=== PATIENT | female | born 2000 | race Caucasian/White ===

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

== ENCOUNTER 2019-02-02 22:24 | Emergency (ER) | payer BC, SELFPAY ==
[2019-02-02 22:27] VITALS: BP 137/85; PULSE 96; RESP 16; TEMP 37.1; O2SAT 97
--- NOTE | 2019-02-02 22:29 | W.ED.GENAD ---
Discharge Plan Disposition Patient Disposition: HOME Condition: Good Discharge Details Chief Complaint: Orthopedic Clinical Impression: Right ankle sprain Primary Care Provider: Connor Mercado ED Provider: Jarred Dorsey Home Meds and New Rx's Prescriptions: No Action methylphenidate HCl [Concerta] 54 MG tablet extended release 24hr 54 mg PO DAILY RF: 0 fluoxetine [Prozac] 20 mg Capsule 20 mg PO DAILY RF: 0 Discharge Instructions Instructions: Ankle Sprain (ED) Additional Instructions: At this time your x-rays show no evidence of severe fracture. I suspect a notable sprain. Please use the crutches for the next 1 to 2 weeks and stay off your ankle. Ice it daily. Use a lace up splint as directed. Take Tylenol and Motrin as needed for pain. He can take a maximum dose of 1000 mg of Tylenol every 6 hours and 600 mg of ibuprofen every 6 hours for pain. If you have no improvement with this conservative therapy over the next 1 to 2 weeks you may require repeat imaging and follow-up with an senior procurement specialist. If you notice any worsening of your symptoms, or any new symptoms such as vomiting, diarrhea, fever, chills, shortness of breath, chest pain, numbness, weakness, or fainting , please return immediately to the emergency department for reevaluation. Please follow up with your primary care provider as soon as possible for reassessment and reevaluation. As always, it was a pleasure participating in your medical care today. Stand Alone Forms: Work Release Medical Decision Making This is a pleasant 18-year-old female who presents today for evaluation of right ankle pain. Earlier today she missed a step while walking, and inverted her right ankle, she has had mild improvement with ibuprofen, however over the last 6 hours she has had increasing swelling on the lateral malleoli and continued pain. Exam demonstrates swelling over the lateral malleoli as well as point tenderness. Auto ankle rules certainly recommend x-ray imaging at this time. Suspect notable sprain of the ankle, likely mild tear of the anterior talofibular ligament. Will get x-ray, give Tylenol, crutches and reassess. 10:59 PM X-ray results show no evidence of acute fracture. Suspect notable sprain. We will continue conservative therapy of ice, crutches, Tylenol, Motrin and legs up ankle splint. Discussed red flags which return. I have extensively reviewed the treatment plan and discharge instructions with the patient. I have addressed all patient concerns at this time. The patient was made aware of what symptoms to monitor for that would warrant a return to the emergency department. Discussed the plan with the patient, they demonstrate verbal understanding and agreement with our assessment and plan at this time. FINDINGS: Bones/joints: Ankle joint effusion. No evidence of fracture. Anatomic alignment. Soft tissues: Unremarkable. Soft tissue swelling over the lateral malleolus. IMPRESSION: Ankle joint effusion. Thank you for allowing us to participate in the care of your patient. Dictated and Authenticated by: Sukumar Nunez MD HPI General Date/Time Provider Initiated Documentation: 02/02/19 22:24. HPI Narrative: This is a 18-year-old female no significant past medical history who presents today for evaluation of right ankle pain. Her earlier today she was walking down 5 steps when she missed a step, and inverted her right ankle. She did not hear a pop at that time. She is been taking ibuprofen and this has been helping somewhat with the pain however over the last 6 hours she is noticed more increased swelling in the lateral aspect of the ankle and continued pain. She presents for evaluation. She denies any significant pain in the remainder of her leg. She denies any significant foot pain. No pain in her knee. She did not fall or strike her head or hips. No other complaints at this time. No other modifying factors. Related Data Home Medications Medication Instructions Recorded Confirmed methylphenidate HCl [Concerta] 54 mg PO DAILY 06/21/14 02/02/19 fluoxetine [Prozac] 20 mg PO DAILY 02/02/19 02/02/19 Allergies Allergy/AdvReac Type Severity Reaction Status Date / Time No Known Allergies Allergy Unverified 02/02/19 22:30 General ZEB: 3 Review of Systems All systems reviewed & are unremarkable except as noted in HPI and below PFSH Social History Smoking/Tobacco Use Status: Current every day Alcohol Intake: never Drug use: Never Substance use type: does not use Do you feel safe at home: Yes Do you feel safe in your relationship?: Yes Exam Narrative Exam Narrative: 1.Const: Well-nourished, Well-developed, appearing stated age 2.Eyes: PERRL, no conjunctival injection, and symmetrical lids. 3.ENT: Atraumatic external nose and ears. Moist MM. Neck: Symmetric, trachea midline, No thyromegaly. 4.CVS: +S1/S2, No murmurs or gallops. Peripheral pulses 2+ and equal in all extremities. Brisk capillary refill in all extremities. 5.RESP: Unlabored respiratory effort. Clear to auscultation bilaterally. No wheezes rales or rhonchi 6.GI: Soft, Nontender/Nondistended, No hepatosplenomegaly. No guarding or rebound. 7.MSK: Normocephalic, right ankle demonstrates evidence of mild swelling over the lateral malleoli, mild tenderness over the inferior and anterior component of the right lateral malleoli. Minimal tenderness just distal to this on the proximal tarsals. No significant joint laxity. Patient demonstrates good flexion extension of toes and foot. Mild pain with inversion and eversion. No pain at the medial malleoli. No other abnormalities, no gross deformities. 8.Skin: Warm, Dry. No rashes or lesions. 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 Sensation grossly intact, no focal neurologic deficits. 10.Psych: (AAO) x3. Appropriate mood and affect
[2019-02-02] MEDS: Acetaminophen 500 MG TAB 1000 MG PO (22:35)
--- NOTE | 2019-02-02 22:40 | DI.RAD_ITS ---
EXAM: XR ANKLE RT COMPLETE INDICATION: pain in lateral ankle after fall. COMPARISON: No exams were available for comparison TECHNIQUE: 2D digital imaging was performed. FINDINGS: No acute fracture or dislocation is present. There is soft tissue swelling about the ankle laterally. No radiopaque foreign bodies are seen in the soft tissues. IMPRESSION: 1. No acute fracture or dislocation. 2. Soft tissue swelling laterally.
--- NOTE | 2019-02-02 22:53 | DI.VRAD_ITS ---
PROCEDURE INFORMATION: Exam: XR Right Ankle Exam date and time: 02/02/2019 10:39 PM Clinical history: 18 years old, female; Other: Pain in lateral ankle after fall TECHNIQUE: Imaging protocol: XR Right ankle. Views: 3 or more views. COMPARISON: CR RIGHT FOOT COMPLETE 01/26/2016 2:08 PM FINDINGS: Bones/joints: Ankle joint effusion. No evidence of fracture. Anatomic alignment. Soft tissues: Unremarkable. Soft tissue swelling over the lateral malleolus. IMPRESSION: Ankle joint effusion. Dictated and Authenticated by: Sukumar Nunez MD. Ordering:REGI Stern MD
[2019-02-02 22:59] VITALS: BP 137/85; PULSE 96; RESP 16; O2SAT 97
== END 2019-02-02 23:05 | disposition home or self-care (01) ==
LOC: ER 22:52
PROVIDERS: Emergency Provider Student in an Organized Health Care Education/Training Program; PCP Physician Assistant Medical
DX: S93.401A Sprain of unspecified ligament of right ankle, initial encounter (principal)
CPT/HCPCS: 29515; 99283; 73610; 99282; E0114; L1902

== ENCOUNTER 2019-05-17 09:02 | Emergency (ER) | payer BC, SELFPAY ==
[2019-05-17 09:08] VITALS: BP 140/88; PULSE 105; RESP 18; TEMP 36.3; O2SAT 95
--- NOTE | 2019-05-17 09:15 | ED.GENADUL_ITS ---
Discharge Plan Disposition Patient Disposition: HOME Condition: Stable Discharge Details Chief Complaint: Nausea/Vomit/Diar Clinical Impression: Nausea and vomiting in adult Primary Care Provider: Connor Mercado ED Provider: Stefani Hawkins Home Meds and New Rx's Prescriptions: New ondansetron 4 mg tablet,disintegrating 4 mg PO Q8H PRN (Reason: nausea and vomiting) Qty: 14 RF: 0 promethazine 12.5 mg suppository 12.5 mg SC TID PRN (Reason: nausea and vomiting) Qty: 12 RF: 0 No Action methylphenidate HCl [Concerta] 54 MG tablet extended release 24hr 54 mg PO DAILY RF: 0 fluoxetine [Prozac] 20 mg Capsule 20 mg PO DAILY RF: 0 Discharge Instructions Instructions: Acute Nausea and Vomiting (ED) Additional Instructions: Follow up with primary care provider in 3-5 days. Return to ED sooner if any worsening or concerns. Please take Tylenol or Ibuprofen with food every 4-6 hours as needed for pain and swelling. Take medications as directed. Increase oral fluids. Stand Alone Forms: School Release Referrals: Connor Mercado PA [Primary Care Provider] - Discharge Data Discharge Date/Time-TO BE ENTERED AT DEPARTURE: 05/17/19 11:51 Medical Decision Making 1032: Patient reevaluation, has gotten 1 L of LR, CBC shows WBCs at 14 patient is not . Patient states that she feels somewhat better and is requesting water. Patient given a cup of water for p.o. challenge. Order for Pepcid placed. No further vomiting noted in department. Plan is to discharge as long as patient is able to tolerate p.o. Patient has not been able to give us a stool sample at this time. 1133: Second reevaluation, patient is tolerating p.o. fluids without difficulty this time. Patient states that she feels better and feels okay to be discharged home. At this time I feel it is safe for her to be discharged. Most likely viral in origin. Unable to have flu swab resulted at this time due to technical difficulties, flu swabs at this time are send out. Plan is to discharge patient with nausea medication and instructions on home care. This text was generated using [employer]elloation system, please disregard any oddities of phrase or misspellings. HPI General Mode of arrival: ambulatory . Date/Time Provider Initiated Documentation: 05/17/19 09:03 . Limitations to Documentation: no limitations . Information obtained by: patient . HPI Narrative: Patient presents with N/V/D x 3 days. Has PO Zofran at home which has not helped. 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. She reports 5-6 episodes of diarrheal stools a day. Mild cough. She denies any abdominal pain. No dysuria. Related Data Home Medications Medication Instructions Recorded Confirmed methylphenidate HCl [Concerta] 54 mg PO DAILY 06/21/14 02/02/19 fluoxetine [Prozac] 20 mg PO DAILY 02/02/19 02/02/19 ondansetron 4 mg PO Q8H PRN #14 tab 05/17/19 promethazine 12.5 mg SC TID PRN #12 each 05/17/19 Previous Rx's Medication Instructions Recorded ondansetron 4 mg PO Q8H PRN #14 tab 05/17/19 promethazine 12.5 mg SC TID PRN #12 each 05/17/19 Allergies Allergy/AdvReac Type Severity Reaction Status Date / Time No Known Allergies Allergy Unverified 02/02/19 22:30 General Stated Complaint: Nausea/Vomit/Diar ZEB: 3 Review of Systems Narrative: Constitutional: Negative for weight loss, alert and oriented, well groomed, normal body habitus, appears comfortable. HEENT: Denies trauma, headaches, blurry vision, nasal discharge, sore throat, trouble swallowing. Chest: Denies chest pain, palpitations, irregular rhythm, hypertension. Respiratory: Denies Shortness of breath, cough, hemoptysis. GI: Denies abdominal pain, constipation. Positive nausea vomiting diarrhea x3 days. : Denies dysuria, hematuria, flank pain, vaginal bleeding, rectal bleeding. Neuro: Denies dizziness, blurry vision, weakness, syncope, headache or facial numbness. Hematologic: Denies easy bruising, intolerance to heat or cold, hair loss. [facility] [place] Medical History ADHD (Acute) Duplex kidney (Acute) Social History Smoking/Tobacco Use Status: Current every day Tobacco Type: cigarettes Alcohol Intake: never Drug use: Never Substance use type: does not use Do you feel safe at home: Yes Do you feel safe in your relationship?: Yes Exam Const General: cooperative, healthy appearing, comfortable, no acute distress, well developed and well groomed Orientation: alert, awake and oriented x3 HENMT Ears: TM's normal bilaterally Mouth: oral mucosae normal Throat: posterior oropharynx normal Resp Effort & Inspection: normal respiratory effort and able to speak in complete sentences Auscultation: clear to auscultation bilaterally, no rhonchi and no wheezes Cardio Rate: regular rate and tachycardic Rhythm: regular rhythm Heart Sounds: S1 normal and S2 normal GI Inspection: normal to inspection Palpation: soft, no hepatosplenomegaly, no guarding and nontender Auscultation: normal bowel sounds Skin General skin exam: no rashes or lesions noted Lesions: no lesions Rashes: no rashes Course Vital Signs Vital signs: Vital Signs Temperature 36.3 C L 05/17/19 09:08 Pulse 105 H 05/17/19 09:08 Respiratory Rate 18 05/17/19 09:08 Blood Pressure 140/88 05/17/19 09:08 Pulse Oximetry 95 05/17/19 09:08 Temperature 36.3 C L 05/17/19 09:08 Temperature Source Tympanic 05/17/19 09:08 Pulse 105 H 05/17/19 09:08 Respiratory Rate 18 05/17/19 09:08 Blood Pressure 140/88 05/17/19 09:08 Blood Pressure Position Sitting 05/17/19 09:08 Pulse Oximetry 95 05/17/19 09:08 Oxygen Delivery Method Room Air 05/17/19 09:08 Oxygen Flow Rate 0 05/17/19 09:08
[2019-05-17] MEDS: Lactated Ringers 1,000 ML 1000 ML IV (09:49)
[2019-05-17] MEDS: Ondansetron 4 MG/2 ML VIAL IVP (09:55)
[2019-05-17 09:59] LABS: Abs Immature Grans 0.03 k/cumm (0.0-0.09); Absolute Basophil Count 0.01 k/cumm (0.0-0.2); Absolute Eosinophil Count 0.13 k/cumm (0.0-0.7); Absolute Lymphocyte Count 0.33 k/cumm (1.2-3.4); Absolute Monocyte Count 0.69 k/cumm (0.11-0.7); Basophils % 0.1; Eosinophils % 0.9; HCT 49.1 % (36.0-46.0); HGB 16.6 g/dL (12.0-15.5); Immature Grans % 0.2 %; Lymphocytes % 2.3; Mean Corp. HGB Concentration 33.8 g/dL (32.0-36.0); Mean Corpuscular Volume 88.8 fL (80-95); Mean Platelet Volume 10.2 fL (8.0-11.0); Monocytes % 4.8; Neutrophils % 91.7; Platelet Count 294 x1000/uL (130-400); RBC 5.53 m/cumm (4.00-5.20); RBC Distribution Width 13.2 % (11.7-14.6); White Blood Cell Count 14.46 k/cumm (4.4-10.8)
[2019-05-17 10:06] LABS: Absolute Neutrophil Count 13.26 k/cumm (1.2-6.7)
[2019-05-17 10:17] LABS: ALT 21 U/L (14-59); AST 18 U/L (15-37); Albumin 3.9 g/dL (3.4-5.0); Alkaline Phosphatase 55 U/L (46-116); Anion Gap 13.5 mmol/L (3-11); BUN 18 mg/dL (7-18); Bilirubin, Total 0.6 mg/dL (0.2-1.0); CO2 22.5 mmol/L (21.0-32.0); CREATININE 0.71 mg/dL (0.55-1.02); Calcium 8.8 mg/dL (8.5-10.1); Chloride 103 mmol/L (98-107); Glucose 106 mg/dL (74-106); Potassium 4.1 mmol/L (3.5-5.1); Sodium 139 mmol/L (136-145); Total Protein 7.7 g/dL (6.4-8.2)
[2019-05-17 10:24] LABS: Bilirubin Negative (Negative); Blood Negative (Negative); Clarity Clear (Clear); Glucose Negative (Negative); Ketones 15 mg/dL (Negative); Leukocyte Esterase Small (Negative); Nitrite Negative (Negative); Specific Gravity >= 1.030 (1.005-1.025); Urobilinogen 0.2 EU/dL (Up TO 0.2)
[2019-05-17 10:36] LABS: Bacteria Rare HPF (Negative); C & S Indicated? No/Sq. Contamination; Casts Negative LPF (Negative); Crystals Negative HPF (Negative); Epithelial Cells Many HPF (Negative); Mucus Negative (Negative); WBC 20-50 HPF (0-5)
[2019-05-17 11:45] VITALS: BP 117/77; PULSE 82; RESP 14; TEMP 36.8; O2SAT 99
== END 2019-05-17 11:51 | disposition home or self-care (01) ==
PROVIDERS: Emergency Provider Registered Nurse Emergency; PCP Physician Assistant Medical
DX: R11.2 Nausea with vomiting, unspecified (principal)
CPT/HCPCS: 80053; 81025; 87449; 96361; 96374; 99284; 81003; 81015; 85025; 87177; 87324; 99283; J2405

== ENCOUNTER 2019-07-18 17:05 | Outpatient (CLI) | payer BC, SELFPAY ==
[2019-07-19 15:19] LABS: COVID-19 RT-PCR Result Not Detected (NotDetected)
== END 2019-07-18 17:25 ==
PROVIDERS: PCP Physician Assistant; Visit Provider Physician Assistant
DX: J06.9 Acute upper respiratory infection, unspecified (principal)
CPT/HCPCS: U0003

== ENCOUNTER 2019-10-15 14:40 | Outpatient (REF) | payer BC, SELFPAY ==
[2019-10-16 15:27] LABS: Chlamydia Result Negative (Negative); GC Result Negative (Negative)
== END 2019-10-15 15:00 ==
LOC: LBN 14:40
PROVIDERS: PCP Physician Assistant; Visit Provider Nurse Practitioner Women's Health
DX: Z11.3 Encounter for screening for infections with a predominantly sexual mode of transmission (principal)
CPT/HCPCS: 87491; 87591

== ENCOUNTER 2019-10-26 07:58 | Emergency (ER) | payer BC, SELFPAY ==
[2019-10-26 08:08] VITALS: BP 132/86; PULSE 69; RESP 16; TEMP 36.4; O2SAT 96
--- NOTE | 2019-10-26 08:21 | W.ED.GENAD ---
Discharge Plan Disposition Patient Disposition: HOME Condition: Improving Discharge Details Chief Complaint: Abd Prob Clinical Impression: Epigastric abdominal pain, Poison kaylie Primary Care Provider: Connor Mercado ED Provider: Hemalatha Nguyen Home Meds and New Rx's Prescriptions: New famotidine [Pepcid] 20 mg tablet 20 mg PO DAILY Qty: 14 RF: 0 prednisone 20 mg tablet See Rx Instructions .ROUTE .COMPLEX Qty: 18 RF: 0 Continued fluoxetine [Prozac] 20 mg Capsule 20 mg PO DAILY RF: 0 Discharge Instructions Instructions: Poison Kaylie (ED), Epigastric Pain (ED) Additional Instructions: The antibiotics you are taking for your bacterial vaginosis may be causing gastrointestinal pain as a side effect. You should follow a bland diet over the next few days and be sure to eat before taking the antibiotic. Drink plenty of fluids and get plenty of rest. Take the Pepcid as directed for the next 2 weeks. Take the steroids until finished. Avoid scratching your areas of poison kaylie as this can cause a secondary bacterial infection and also cause spread of the rash. Follow-up with your primary care doctor in 1 week. Return to the emergency department with any worsening or new concerning symptoms such as fever, worsening pain, vomiting for reevaluation. Discharge Data Discharge Physician: Hemalatha Nguyen Medical Decision Making 0800 -- 18-year-old female currently on metronidazole for bacterial vaginosis for the past several days presents with intermittent sharp upper abdominal pain since this morning. Vitals within normal limits and she appears nontoxic. She has moderate upper abdominal and minimal suprapubic tenderness. Differential diagnosis includes antibiotic reaction, gastritis, GERD, PUD, cholelithiasis, cholecystitis, UTI, etc. Will obtain screening labs, urinalysis and urine and give a dose of Pepcid and GI cocktail and reassess. Will hold on imaging at this time pending labs and patient response to medication. 0940 -- labs reviewed and unremarkable. Patient reassessed -she was able to eat and drink and is laughing with her mom in the room and appears in no acute distress. She denies any abdominal pain and is requesting to go home. She also states she was recently treated for poison kaylie with a Medrol Dosepak but states the rash is worsening. She has a vesicular papular rash scattered diffusely, no signs of cellulitis. Discussed that she likely needed a higher dose of steroids for a longer period of time. A prescription for prednisone and Pepcid given. Advised to follow up with the primary care doctor for re-evaluation. Usual and customary return precautions given prior to discharge. Medical Records Medical records reviewed: Yes I reviewed the patient's medical records. HPI General Mode of arrival: ambulatory. Date/Time Provider Initiated Documentation: 10/26/19 08:08. Limitations to Documentation: no limitations. Information obtained by: patient. HPI Narrative: Pt is a 18yo F who is currently on antibiotics for bacterial vaginosis who presents with intermittent sharp upper abdominal pain since this morning. Patient denies any radiation of pain, aggravating or alleviating factors and states the pain is currently 4/10. She denies any fever, nausea, vomiting, diarrhea, urinary symptoms. Patient states she is currently on Flagyl for recently diagnosed bacterial vaginosis in which she had white vaginal discharge and vaginal bleeding. She denies any external lesions. She states she is sexually active with one partner. Related Data Home Medications Medication Instructions Recorded Confirmed fluoxetine [Prozac] 20 mg PO DAILY 02/02/19 10/26/19 famotidine [Pepcid] 20 mg PO DAILY #14 tab 10/26/19 prednisone See Rx Instructions .ROUTE 10/26/19 .COMPLEX #18 tab Previous Rx's Medication Instructions Recorded famotidine [Pepcid] 20 mg PO DAILY #14 tab 10/26/19 prednisone See Rx Instructions .ROUTE 10/26/19 .COMPLEX #18 tab Allergies Allergy/AdvReac Type Severity Reaction Status Date / Time No Known Allergies Allergy Unverified 02/02/19 22:30 General Stated Complaint: Abd Prob ZEB: 3 Review of Systems All systems reviewed & are unremarkable except as noted in HPI and below Constitutional Constitutional: Reports as per HPI, Denies chills and Denies fever(s) Eyes Eyes: Denies blurry vision ENT Ears, Nose, Mouth, and Throat: Denies dizziness, Denies sore throat and Denies throat swelling Cardiovascular Cardiovascular: Denies chest pain and Denies dyspnea Respiratory Respiratory: Denies cough and Denies dyspnea Gastrointestinal Gastrointestinal: Reports abdominal pain, Denies diarrhea and Denies vomiting Genitourinary Genitourinary: Denies hematuria and Denies dysuria Musculoskeletal Musculoskeletal: Denies back pain and Denies numbness Integumentary/Breasts Skin/Breast: Denies lesions and Denies rash Neurologic Neurologic: Denies dizziness, Denies localized weakness and Denies numbness Allergic/Immunologic Allergic/Immunologic: Denies throat swelling [facility] Medical History (Updated 10/26/19 @ 09:47 by Hemalatha Nguyen DO) ADHD (Acute) Duplex kidney (Acute) Surgical History (Updated 10/26/19 @ 08:50 by Hemalatha Nguyen DO) No significant past surgical history (Acute) Social History Smoking/Tobacco Use Status: Current every day Tobacco Type: e-cigarettes Alcohol Intake: never Drug use: Never Substance use type: marijuana Do you feel safe at home: Yes Do you feel safe in your relationship?: Yes Female Reproductive History Menstrual control method: patch Exam Const General: cooperative, healthy appearing and no acute distress HENMT Head: normal to inspection Face and sinus: normal facial exam Eyes General: appearance normal, both eyes and all related structures EOM: EOM intact bilaterally Neck Neck: normal visual inspection and No submandibular swelling Lymphatic: no lymphadenopathy noted Chest Chest: normal inspection of the chest and no tenderness Resp Effort & Inspection: normal respiratory effort and able to speak in complete sentences Auscultation: clear to auscultation bilaterally Cardio Rate: regular rate Rhythm: regular rhythm GI Inspection: normal to inspection Palpation: soft, not firm, not rigid and tender in the epigastrum, in the LUQ and in the RUQ Auscultation: normal bowel sounds Skin General skin exam: no rashes or lesions noted Neuro General: patient alert, patient awake and patient oriented x3 Cognition: normal cognition Speech: speech normal Motor: muscle tone normal throughout Sensory Exam: no sensory deficits noted Extrem General: normal to inspection, full ROM, capillary refill normal, no calf tenderness bilaterally and no edema Psych Appearance: grossly normal Mental Status: mental status grossly normal Speech and Movement: speech and movement normal Affect: normal affect Course Vital Signs Vital signs: Vital Signs Temperature 97.5 F L 10/26/19 08:08 Pulse 69 10/26/19 08:08 Respiratory Rate 16 10/26/19 08:08 Blood Pressure 132/86 10/26/19 08:08 Pulse Oximetry 96 10/26/19 08:08 Temperature 97.5 F L 10/26/19 08:08 Temperature Source Tympanic 10/26/19 08:08 Pulse 69 10/26/19 08:08 Respiratory Rate 16 10/26/19 08:08 Respiratory Effort Non-Labored 10/26/19 08:13 Blood Pressure 132/86 10/26/19 08:08 Blood Pressure Position Sitting 10/26/19 08:08 Pulse Oximetry 96 10/26/19 08:08 Oxygen Delivery Method Room Air 10/26/19 08:08 Oxygen Flow Rate 0 10/26/19 08:08 Pain Level 7 10/26/19 08:10
[2019-10-26] MEDS: Famotidine 20 MG TAB PO (08:55)
[2019-10-26 09:04] LABS: Bilirubin Negative (Negative); Blood Negative (Negative); Clarity Sl Cloudy (Clear); Glucose Negative (Negative); Ketones Negative (Negative); Leukocyte Esterase Negative (Negative); Nitrite Negative (Negative); Urobilinogen 0.2 EU/dL (Up TO 0.2); pH 5.5 (5-8)
[2019-10-26 09:06] LABS: Abs Immature Grans 0.04 k/cumm (0.0-0.09); Absolute Basophil Count 0.03 k/cumm (0.0-0.2); Absolute Eosinophil Count 0.51 k/cumm (0.0-0.7); Absolute Lymphocyte Count 2.35 k/cumm (1.2-3.4); Absolute Monocyte Count 0.83 k/cumm (0.11-0.7); Absolute Neutrophil Count 7.05 k/cumm (1.2-6.7); Basophils % 0.3; Eosinophils % 4.7; HCT 44.7 % (36.0-46.0); HGB 15.2 g/dL (12.0-15.5); Immature Grans % 0.4 %; Lymphocytes % 21.7; Mean Corpuscular Hemoglobin 30.5 pg (27.0-33.0); Mean Corpuscular Volume 89.8 fL (80-95); Mean Platelet Volume 10.1 fL (8.0-11.0); Monocytes % 7.7; Neutrophils % 65.2; Platelet Count 279 x1000/uL (130-400); RBC 4.98 m/cumm (4.00-5.20); RBC Distribution Width 13.5 % (11.7-14.6); White Blood Cell Count 10.81 k/cumm (4.4-10.8)
[2019-10-26 09:26] LABS: ALT 34 U/L (14-59); AST 22 U/L (15-37); Albumin 3.5 g/dL (3.4-5.0); Alkaline Phosphatase 46 U/L (46-116); Anion Gap 9.7 mmol/L (3-11); BUN 14 mg/dL (7-18); Bilirubin, Total 0.4 mg/dL (0.2-1.0); CO2 24.3 mmol/L (21.0-32.0); CREATININE 0.67 mg/dL (0.55-1.02); Calcium 8.7 mg/dL (8.5-10.1); Chloride 102 mmol/L (98-107); Glucose 91 mg/dL (74-106); Lipase 111 U/L (73-393); Potassium 3.7 mmol/L (3.5-5.1); Sodium 136 mmol/L (136-145); Total Protein 6.9 g/dL (6.4-8.2)
[2019-10-26 09:59] VITALS: BP 119/80; PULSE 74; RESP 18; TEMP 36.6; O2SAT 96
== END 2019-10-26 10:01 | disposition home or self-care (01) ==
PROVIDERS: Emergency Provider Physician Assistant; PCP Physician Assistant Medical
DX: R10.13 Epigastric pain (principal); T37.8X5A Adverse effect of other specified systemic anti-infectives and antiparasitics, initial encounter; L23.7 Allergic contact dermatitis due to plants, except food
CPT/HCPCS: 36415; 80053; 81025; 83690; 99283; 81003; 85025

== ENCOUNTER 2019-10-31 00:53 | Emergency (ER) | payer BC, SELFPAY ==
[2019-10-31 00:58] VITALS: BP 147/80; PULSE 81; RESP 16; TEMP 36.2; O2SAT 97
--- NOTE | 2019-10-31 01:00 | DI.CT_ITS ---
EXAM: CT HEAD WO CLINICAL HISTORY: severe headache, vomiting, wretching. TECHNIQUE: Imaging Protocol: Axial computed tomography images with coronal and sagittal reformatted images were created and reviewed COMPARISON: No exams were available for comparison FINDINGS: Ventricles and Extra axial spaces: Normal in size and morphology for the patient's age. There is a 1. 7 x 1.5 x 1.1 cm CSF density round circumscribed lesion in the region of the pineal gland. It exerts minimal mass effect. Hemorrhage: None. Cerebral parenchyma: Normal. Midline shift: None. Brainstem/Cerebellum: Normal. Calvarium: Normal. Visualized Paranasal sinuses/Mastoids: Clear. Soft Tissues: Unremarkable. IMPRESSION: 1. No acute intracranial process. 2. 1.7 x 1.5 x 1.1 cm CSF density well-circumscribed round lesion in the region of the pineal gland. 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 A nonem ergent follow-up pre and post-contrast MRI of the brain is recommended. RADIATION DOSE DELIVERED: Total DLP DATA REPOSITORY: All CT scans at this facility are submitted to the National Radiology Data Registry (NRDR) Dose Index Registry (DIR) with the [employer] (A[employer]). RADIATION OPTIMIZATION: All CT scans at this facility use at least one of these dose optimization te chniques: automated exposure control; mA and/or kV adjustment per patient size (includes targeted exa ms where dose is matched to clinical indication); or iterative reconstruction.
--- NOTE | 2019-10-31 01:05 | W.ED.GENAD ---
Discharge Plan Disposition Patient Disposition: HOME Condition: Good Discharge Details Chief Complaint: Headache Clinical Impression: Headache, Brain mass Primary Care Provider: Ventura Harding ED Provider: Jarred Dorsey Home Meds and New Rx's Prescriptions: Continued acetaminophen [Tylenol Extra Strength] 500 mg Tablet 1,000 mg PO PRN PRNRF: 0 famotidine [Pepcid] 20 mg Tablet 20 mg PO DAILY RF: 0 fluoxetine [Prozac] 10 mg Capsule 10 mg PO DAILY RF: 0 ibuprofen 600 mg Tablet 600 mg PO PRN PRNRF: 0 Discharge Instructions Instructions: General Headache (ED) Additional Instructions: At this time your headache is resolved. It is likely just a migraine headache. You do have the small cyst on your brain that you are well aware of, please continue to follow-up closely with your neurologist about this. If you notice any worsening of your symptoms, or any new symptoms such as vomiting, diarrhea, fever, chills, shortness of breath, chest pain, numbness, weakness, or fainting , please return immediately to the emergency department for reevaluation. Please follow up with your primary care provider as soon as possible for reassessment and reevaluation. As always, it was a pleasure participating in your medical care today. Stand Alone Forms: Work Release Referrals: Ventura Harding [Primary Care Provider] - Medical Decision Making 18-year-old female with a past medical history of headaches and PTSD, presents today for evaluation of headache. Patient states that for the last 2 days she has had what she describes as her classic headaches, but worse than normal. Started in a non-thunderclap form, gradually worsened, made worse with light and loud noises, improved with darkness. She did take Tylenol and Motrin but this did not resolve her symptoms. She is now nauseous, and has had a few intermittent episodes of vomiting. She states that it is similar nature to previous headaches. Per records it does not appear that she has had imaging before. The patient denies any headache red flags of worst headache of life, thunderclap headache, neck pain, fever, chills, concerning family history of polycystic kidney disease, Marfan syndrome, Jignesh-Danlos syndrome, abdominal aortic aneurysm, aortic dissection, or intracranial aneurysm. Patient has no other complaints at this time. No other modifying factors. Physical exam is unremarkable, no meningeal signs. Headache is described in the front of her head, no vision changes. Signs and symptoms inconsistent with acute angle-closure glaucoma, unlikely to be a dural venous sinus thrombosis based on clinical presentation. Symptoms and history and exam are inconsistent with intracranial aneurysm or bleed. Suspect likely migraine headache. With no history or images that we can find I do feel that a single imaging evaluation is indicated to rule out mass. Will treat with migraine cocktail, CT scan of the head, gently rehydrate monitor closely and reassess. 1 AM Patient's headache is completely resolved. Repeat neurologic exam shows no neurologic deficits or concerning findings. Symptoms inconsistent with meningitis, acute intercranial hemorrhage, subdural venous sinus thrombosis. CT scan is negative except for evidence of a CSF density in the region of the pineal gland. This was discussed with the patient and her mother, they state that they are well aware of this, and are regularly followed for. I did recommend repeat follow-up, and reassessment for this. I do not feel that this is the cause of her headaches, but should certainly continue to be evaluated and monitored. Patient and mother state that they are aware of this, and will follow-up closely with their outpatient providers. With the patient's complete resolution of her symptomatology, she is asking to go home. Patient will be discharged with mother. Discussed red flags which to return. I have extensively reviewed the treatment plan and discharge instructions with the patient and their family. I have addressed all patient concerns at this time. The patient and family was made aware of what symptoms to monitor for that would warrant a return to the emergency department. Discussed the plan with the patient and family, they demonstrate verbal understanding and agreement with our assessment and plan at this time. FINDINGS: 1,7x . 1.5 x 1.1 cm area of low attenuation/CSF density in the region of the pineal gland Minimal mass effect on the thalami Brain: No hemorrhage. Unremarkable white matter. Ventricles: Normal. No ventriculomegaly. Bones/joints: Unremarkable. No acute fracture. Sinuses: Visualized sinuses are unremarkable. No fluid levels. Mastoid air cells: Visualized mastoid air cells are well aerated. Soft tissues: Unremarkable. IMPRESSION: No acute intracranial hemorrhage noted Cystic/CSF attenuation focus in the expected location of the pineal gland which may represent a cyst versus arachnoid cyst versus epidermoid cyst. Follow-up nonurgent evaluation with contrast enhanced brain MRI recommended Thank you for allowing us to participate in the care of your patient. Dictated and Authenticated by: Lino Stovall MD 10/31/2019 1:56 AM Eastern Time ([place] & [place]) HPI General Date/Time Provider Initiated Documentation: 10/31/19 00:54. HPI Narrative: 18-year-old female with a past medical history of headaches and PTSD, presents today for evaluation of headache. Patient states that for the last 2 days she has had what she describes as her classic headaches, but worse than normal. Headache is achy, and located in the front of her head. Started in a non-thunderclap form, gradually worsened, made worse with light and loud noises, improved with darkness. She did take Tylenol and Motrin but this did not resolve her symptoms. She is now nauseous, and has had a few intermittent episodes of vomiting. She states that it is similar nature to previous headaches. Per records it does not appear that she has had imaging before. The patient denies any headache red flags of worst headache of life, thunderclap headache, neck pain, fever, chills, concerning family history of polycystic kidney disease, Marfan syndrome, Jignesh-Danlos syndrome, abdominal aortic aneurysm, aortic dissection, or intracranial aneurysm. Patient has no other complaints at this time. No other modifying factors. Also of note the patient is on a steroid burst for poison tavia. Related Data Home Medications Medication Instructions Recorded Confirmed acetaminophen [Tylenol Extra 1,000 mg PO PRN PRN 10/31/19 10/31/19 Strength] famotidine [Pepcid] 20 mg PO DAILY 10/31/19 10/31/19 fluoxetine [Prozac] 10 mg PO DAILY 10/31/19 10/31/19 ibuprofen 600 mg PO PRN PRN 10/31/19 10/31/19 Allergies Allergy/AdvReac Type Severity Reaction Status Date / Time No Known Allergies Allergy Unverified 10/31/19 02:09 General Stated Complaint: Headache ZEB: 3 Review of Systems All systems reviewed & are unremarkable except as noted in HPI and below PFSH Social History Smoking/Tobacco Use Status: Current every day Tobacco Type: e-cigarettes Alcohol Intake: never Drug use: Occasionally Substance use type: marijuana Do you feel safe at home: Yes Do you feel safe in your relationship?: Yes Exam Narrative Exam Narrative: 1.Const: Well-nourished, Well-developed, appearing stated age 2.Eyes: PERRL, no conjunctival injection, and symmetrical lids. 3.ENT: Atraumatic external nose and ears. Moist MM. Neck: Symmetric, trachea midline, No thyromegaly. Patient demonstrates good movement of cervical neck. There is no nuchal rigidity, no nuchal tenderness. Patient is able to flex the neck without any difficulty or significant pain. Negative Kernig's and Brudzinski sign. 4.CVS: +S1/S2, No murmurs or gallops. Peripheral pulses 2+ and equal in all extremities. Brisk capillary refill in all extremities. 5.RESP: Unlabored respiratory effort. Clear to auscultation bilaterally. No wheezes rales or rhonchi 6.GI: Soft, Nontender/Nondistended, No hepatosplenomegaly. No guarding or rebound. 7.MSK: Normocephalic/Atraumatic, Extremities w/o deformity or ttp No cyanosis or clubbing, Normal movement of all extremities 8.Skin: Warm, Dry. No rashes or lesions. 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 Sensation grossly intact, no focal neurologic deficits.All 6 cardinal planes of vision are fully intact. No evidence of rotatory or vertical nystagmus. The patient demonstrated a normal [id number], good dexterity. There was no evidence of dysdiadochokinesia. Patient was able to ambulate without difficulty. There was no wide-based gait. Romberg testing was normal. [id number] testing was normal. Sensation was intact bilaterally as well as muscle strength bilaterally for all extremities. Patient was able to verbalize butter cup with no slurring, or miss pronunciation. 10.Psych: (AAO) x3. Appropriate mood and affect Course Vital Signs Vital signs: Vital Signs Temperature 36.2 C L 10/31/19 00:58 Pulse 81 10/31/19 00:58 Respiratory Rate 16 10/31/19 00:58 Blood Pressure 147/80 H 10/31/19 00:58 Pulse Oximetry 97 10/31/19 00:58 Temperature 36.2 C L 10/31/19 00:58 Temperature Source Skin 10/31/19 00:58 Pulse 81 10/31/19 00:58 Respiratory Rate 16 10/31/19 00:58 Respiratory Effort Non-Labored 10/31/19 01:02 Blood Pressure 147/80 H 10/31/19 00:58 Blood Pressure Position Sitting 10/31/19 00:58 Pulse Oximetry 97 10/31/19 00:58 Oxygen Delivery Method Room Air 10/31/19 00:58 Oxygen Flow Rate 0 10/31/19 00:58
[2019-10-31] MEDS: Normal Saline 1,000 ML 1000 ML IV (01:17)
[2019-10-31] MEDS: diphenhydrAMINE 50 MG/ML VIAL IVP (01:17)
[2019-10-31] MEDS: Ketorolac 30 MG/ML VIAL IVP (01:18)
[2019-10-31] MEDS: Prochlorperazine 10 MG/2 ML VIAL IVP (01:18)
--- NOTE | 2019-10-31 01:57 | DI.VRAD_ITS ---
PROCEDURE INFORMATION: Exam: CT Head Without Contrast Exam date and time: 10/31/2019 1:04 AM Age: 18 years old Clinical indication: Pain; Headache not specified; Patient HX: Severe frontal headache, vomiting, wretching TECHNIQUE: Imaging protocol: Computed tomography of the head without contrast. Radiation optimization: All CT scans at this facility use at least one of these dose optimization techniques: automated exposure control; mA and/or kV adjustment per patient size (includes targeted exams where dose is matched to clinical indication); or iterative reconstruction. COMPARISON: No relevant prior studies available. FINDINGS: 1,7x . 1.5 x 1.1 cm area of low attenuation/CSF density in the region of the pineal gland Minimal mass effect on the thalami Brain: No hemorrhage. Unremarkable white matter. Ventricles: Normal. No ventriculomegaly. Bones/joints: Unremarkable. No acute fracture. Sinuses: Visualized sinuses are unremarkable. No fluid levels. Mastoid air cells: Visualized mastoid air cells are well aerated. Soft tissues: Unremarkable. IMPRESSION: No acute intracranial hemorrhage noted Cystic/CSF attenuation focus in the expected location of the pineal gland which may represent a cyst versus arachnoid cyst versus epidermoid cyst. Follow-up nonurgent evaluation with contrast enhanced brain MRI recommended Dictated and Authenticated by: Lino Stovall MD. Ordering:REGI Stern MD
[2019-10-31 02:29] VITALS: BP 131/89; PULSE 62; RESP 16; O2SAT 97
== END 2019-10-31 02:30 | disposition home or self-care (01) ==
PROVIDERS: Emergency Provider Student in an Organized Health Care Education/Training Program; PCP Physician Assistant
DX: G43.809 Other migraine, not intractable, without status migrainosus (principal); G93.0 Cerebral cysts; R11.2 Nausea with vomiting, unspecified
CPT/HCPCS: 81025; 96361; 96374; 96375; 99284; 70450; J0780; J1200; J1885

== ENCOUNTER 2020-02-01 17:38 | Outpatient (REF) | payer BC, SELFPAY ==
[2020-02-04 02:30] LABS: Patient Race White; SARS-CoV-2 RNA Undetected (Undetected); SARS-CoV-2 Specimen Source Nasal
== END 2020-02-01 17:58 ==
LOC: NCHCN 17:38
PROVIDERS: PCP Physician Assistant Medical; Visit Provider Nurse Practitioner Family
DX: R05 Cough (principal); J02.9 Acute pharyngitis, unspecified
CPT/HCPCS: U0003

== ENCOUNTER 2020-02-04 19:21 | Outpatient (REF) | payer BC, SELFPAY | END 2020-02-04 19:41 | LOC: NCHCN 19:21 | PROVIDERS: PCP Physician Assistant Medical; Visit Provider Nurse Practitioner Family | DX: J02.9 Acute pharyngitis, unspecified (principal); R05 Cough | CPT/HCPCS: 87070 ==

== ENCOUNTER 2020-02-05 10:04 | Outpatient (CLI) | payer BC, SELFPAY ==
--- NOTE | 2020-02-05 | DI.RAD_ITS ---
EXAM: XR CHEST 2V PA LATERAL CLINICAL HISTORY: COUGH, R05, COVID NEGATIVE 01/28 01/30, NO EXPOSURE SINCE TECHNIQUE: 2D digital imaging was performed. COMPARISON: CR CHEST 2 VIEWS PA,LAT from 06/10/2013 FINDINGS: The heart is not enlarged. The lungs are clear and well expanded. No pleural effusion seen. Mediastin al contours appear intact. IMPRESSION: Normal chest RADIATION DOSE DELIVERED: Total DLP
== END 2020-02-05 10:24 ==
PROVIDERS: PCP Physician Assistant Medical; Visit Provider Nurse Practitioner Family
DX: R05 Cough (principal)
CPT/HCPCS: 71046

== ENCOUNTER 2020-04-18 09:41 | Emergency (ER) | payer BC, SELFPAY ==
[2020-04-18] VITALS (11 sets, daily range): BP systolic 115–160; BP diastolic 82–112; PULSE 69–109; RESP 12–21; TEMP 36.5–36.9; O2SAT 93–97
--- NOTE | 2020-04-18 09:30 | RT.EKG_ITS ---
APPROVED REPORT Exam: Resting ECG Patient Location: E HR:74 bpm ECG Measurements Heart Rate 74 AXIS OR 196 P 47 QRSd 102 QRS 78 QT 396 T 58 QTc 442 Conclusion Sinus rhythm. Normal P axis
--- NOTE | 2020-04-18 09:45 | DI.RAD_ITS ---
EXAM: XR CHEST 2V PA LATERAL CLINICAL HISTORY: Chest tightness TECHNIQUE: 2D digital imaging was performed. COMPARISON: CR XR CHEST 2V PA LATERAL from 02/05/2020 FINDINGS: MEDIASTINUM: Normal. HEART: Normal. PULMONARY VASCULATURE: Normal. LUNGS: Clear. PLEURAL SPACE: No pleural effusion or pneumothorax. BONE:Within normal limits for the patient's age. OTHER FINDINGS:Normal. IMPRESSION: No acute pulmonary findings. DATA REPOSITORY: RADIATION DOSE DELIVERED:
--- NOTE | 2020-04-18 10:05 | ED.GENADUL_ITS ---
Discharge Plan Disposition Patient Disposition: HOME Condition: Stable Discharge Details Clinical Impression: Chest tightness Primary Care Provider: Connor Mercado ED Provider: Stefani Hawkins Home Meds and New Rx's Prescriptions: Continued fluoxetine [Prozac] 20 mg Capsule 20 mg PO DAILY RF: 0 acetaminophen [Tylenol Extra Strength] 500 mg Tablet 1,000 mg PO PRN PRNRF: 0 ibuprofen 600 mg Tablet 600 mg PO PRN PRNRF: 0 famotidine [Pepcid] 20 mg tablet 20 mg PO DAILY PRNRF: 0 Xulane 150-35 mcg/24 hr patch weekly 1 patch transdermal DIRECTED RF: 0 Discharge Instructions Instructions: Costochondritis (ED) Additional Instructions: Follow up with primary care provider in 3-5 days. Return to ED sooner if any worsening or concerns. Increase oral fluids. Please take Tylenol or Ibuprofen with food every 4-6 hours as needed for pain and swelling. Please return for any worsening or concerns. As always thank you for allowing us to care for you today. Referrals: Connor Mercado PA [Primary Care Provider] - Medical Decision Making 19-year-old female presents to the ED with chief complaint of chest tightness and left arm pain which began this morning. She describes the pain as constant, increases with deep breathing and movement. States that she woke up and began coughing and was coughing up phlegm. No real nausea or vomiting complaint but she does report that the coughing episode. She reports having a a low-grade fever of 99 this morning. Denies any trauma or injuries to the chest. She did present to express care this morning and was sent here for further evaluation. She has a past medical history of ADHD, duplex kidney, and postural orthostatic tachycardia syndrome. She is a smoker she does smoke marijuana. EKG and patient presentation was delayed after signing into the department due to refusal to come back unless her mother was present. Patient after multiple conversations did agree to be seen, she is alert and oriented x3 does appear mildly anxious. At this time work-up ordered including CBC, CMP, serial troponins, D-dimer, chest x-ray and urine test. 1011: EKG was reviewed by [Dr. Karoline GARCIAS] ER attending, please see his official report, normal sinus rhythm no ST elevation. At this time heart score is a 1 which is very low risk, patient does have 1 risk factor for possible PE which is hormone use. D-dimer is also been added onto labs. 1128: Patient reevaluation, she states that she feels much better. She is in the room without any significant trouble breathing or complaints of pain. She states that she does still feel small amount of chest tightness. Vital signs have remained hemodynamically stable. Heart rate has been 66-75, I did discuss the lab results with her and her mother via Zoom. They verbalized understanding. Discussed strict return instructions including to return for any increased pain, increased shortness of breath or any concerns. Instructed to follow-up with PCP in the next 3 to 5 days. CBC shows elevated white blood cell count at 17.92, D-dimer 197 which is within normal limits, CMP is within normal limits. Urine shows trace blood moderate leukocytes however this is a contaminated specimen will not be sent for culture. Special chest x-ray report is pending at this time. However I was able to personally view the images and do not see any obvious infiltrate or cardiopulmonary abnormality. We will give 50 mg of Toradol to see if it improves patient's symptoms. She did receive 0.5 mg of lorazepam p.o. and 324 mg of aspirin chewables which did improve her symptoms. Differential diagnosis includes but not limited to chest wall pain, costochondritis, bronchitis, viral illness, coronary artery disease, anxiety, PE This text was generated using [employer] system, please disregard any oddities of phrase or misspellings. HPI General Mode of arrival: ambulatory . Date/Time Provider Initiated Documentation: 04/18/20 09:42 . Limitations to Documentation: no limitations . Information obtained by: patient . HPI Narrative: 19-year-old female presents to the ED with chief complaint of chest tightness and left arm pain which began this morning. She describes the pain as constant, increases with deep breathing and movement. States that she woke up and began coughing and was coughing up phlegm. No real nausea or vomiting complaint but she does report that the coughing episode. She reports having a a low-grade fever of 99 this morning. Denies any trauma or injuries to the chest. She did present to express care this morning and was sent here for further evaluation. She has a past medical history of ADHD, duplex kidney, and postural orthostatic tachycardia syndrome. She is a smoker she does smoke marijuana. Related Data Home Medications Medication Instructions Recorded Confirmed fluoxetine [Prozac] 20 mg PO DAILY 02/02/19 04/18/20 acetaminophen [Tylenol Extra 1,000 mg PO PRN PRN 10/31/19 04/18/20 Strength] ibuprofen 600 mg PO PRN PRN 10/31/19 04/18/20 Xulane 1 patch TRANSDERMAL DIRECTED 04/18/20 04/18/20 famotidine [Pepcid] 20 mg PO DAILY PRN 04/18/20 04/18/20 Allergies Allergy/AdvReac Type Severity Reaction Status Date / Time Iodinated Contrast Media AdvReac Mild doesn't Unverified 04/18/20 11:02 feel well General Stated Complaint: Chest Pain ZEB: 2 Review of Systems Narrative: Constitutional: Negative for weight loss, alert and oriented, well groomed, normal body habitus, appears anxious. HEENT: Denies trauma, headaches, blurry vision, nasal discharge, sore throat, trouble swallowing. Chest: Denies irregular rhythm, hypertension. Positive chest pain, feels his heart is racing, left arm pain. Respiratory: Denies Shortness of breath, hemoptysis. Woke up coughing this morning. GI: Denies abdominal pain, vomiting, diarrhea, constipation. : Denies dysuria, hematuria, flank pain, rectal bleeding. Neuro: Denies dizziness, blurry vision, weakness, syncope, headache or facial numbness. Hematologic: Denies easy bruising, intolerance to heat or cold, hair loss. [facility] Medical History ADHD Duplex kidney Surgical History No significant past surgical history Social History Smoking/Tobacco Use Status: Current every day Tobacco Type: e-cigarettes Smoking risk assessment performed?: Yes Alcohol Intake: never Drug use: Socially Substance use type: marijuana Do you feel safe at home: Yes Do you feel safe in your relationship?: Yes Female Reproductive History Menstrual control method: patch Exam Narrative Exam Narrative: Constitutional: Alert and oriented x3. Appears stated age. Normal body habitus. Head: Normocephalic, no trauma. Eyes: Pupils PERRLA, Red reflex noted, EOM's intact. Eyelids symmetrical without lesions, discharge, or swelling. Chest: RRR, Normal S1, S2, distal pulses intact. Chest pain is reproducible with palpation. Resp: Lungs clear to auscultation bilaterally, no wheezes, rales, or rhonchi. Abdomen: Soft, nondistended nontender to palpation all 4 quadrants. Musculoskeletal: Normal gait, 5/5 strength to all four extremities. Skin: No suspicious rashes or lesions. Capillary refill less than 2 sec. no edema noted in the lower extremities. Neurologic: Cranial nerves II-XII intact. Alert and oriented x 3. DTR's intact. Hematologic/Lymphatic: No ecchymosis, no lymphadenopathy. Course Vital Signs Vital signs: Vital Signs Temperature 36.5 C 04/18/20 09:55 Pulse 109 H 04/18/20 09:55 Respiratory Rate 16 04/18/20 09:55 Blood Pressure 160/112 H 04/18/20 09:55 Pulse Oximetry 93 04/18/20 09:55 Temperature 36.5 C 04/18/20 09:55 Temperature Source Skin 04/18/20 09:55 Pulse 109 H 04/18/20 09:55 Respiratory Rate 16 04/18/20 10:01 Respiratory Effort 04/18/20 10:01 Respiratory Depth Normal 04/18/20 10:01 Respiratory Pattern Normal 04/18/20 10:01 Blood Pressure 160/112 H 04/18/20 09:55 Blood Pressure Position Sitting 04/18/20 09:55 Pulse Oximetry 93 04/18/20 09:55 Oxygen Delivery Method Room Air 04/18/20 09:55 Oxygen Flow Rate 0 04/18/20 09:55 Pain Level 8 04/18/20 09:55 Comment 04/18/20 09:55
[2020-04-18] MEDS: Normal Saline Flush 10 ML SYR IVP (10:15)
[2020-04-18] MEDS: Normal Saline 1,000 ML 125 ML IV (10:20)
[2020-04-18] MEDS: LORazepam 0.5 MG TAB PO (10:22)
[2020-04-18 10:23] LABS: Bilirubin Negative (Negative); Blood Trace-intact (Negative); Clarity Sl Cloudy (Clear); Glucose Negative (Negative); Ketones Negative (Negative); Leukocyte Esterase Moderate (Negative); Nitrite Negative (Negative); Specific Gravity 1.025 (1.005-1.025); Urobilinogen 0.2 EU/dL (Up TO 0.2)
[2020-04-18] MEDS: Aspirin 81 MG CHEW 324 MG CH (10:23)
[2020-04-18 10:26] LABS: Abs Immature Grans 0.06 10^3/uL (0.0-0.06); Basophils % 0.3; Eosinophils % 1.8; HCT 44.8 % (36.0-46.0); Immature Grans % 0.3; Lymphocytes % 20.4; MCH 29.5 pg (27.0-33.0); MCHC 33.5 % (32.0-36.0); Monocytes % 4.7; Neutrophils % 72.5; Nucleated RBC 0 %; Platelet Count 381 10^3/uL (130-400); RBC 5.09 10^6/uL (3.93-5.22); RDW 12.4 % (11.7-14.6); RDW-SD 40.1 fL; WBC 17.92 10^3/uL (4.4-10.8)
[2020-04-18 10:27] LABS: Absolute Basophil Count 0.05 10^3/uL (0.0-0.2); Absolute Eosinophil Count 0.32 10^3/uL (0.0-0.7); Absolute Lymphocyte Count 3.66 10^3/uL (1.2-3.4); Absolute Monocyte Count 0.84 10^3/uL (0.1-0.8); Absolute Neutrophil Count 12.99 10^3/uL (1.2-6.7)
[2020-04-18 10:33] LABS: Epithelial Cells Many HPF (Negative)
[2020-04-18 10:34] LABS: Bacteria Many HPF (Negative); C & S Indicated? No/Sq. Contamination
[2020-04-18 10:42] LABS: ALT 20 U/L (14-59); AST 13 U/L (15-37); Alkaline Phosphatase 78 U/L (46-116); Anion Gap 13.4 mmol/L (3-11); BUN 7 mg/dL (7-18); Bilirubin, Total 0.3 mg/dL (0.2-1.0); CO2 22.6 mmol/L (21.0-32.0); CREATININE 0.68 mg/dL (0.55-1.02); Calcium 9.2 mg/dL (8.5-10.1); Chloride 103 mmol/L (98-107); Glucose 102 mg/dL (74-106); Magnesium 1.9 mg/dL (1.8-2.4); Potassium 3.7 mmol/L (3.5-5.1); Sodium 139 mmol/L (136-145)
[2020-04-18 10:53] LABS: Troponin I < 0.05 ng/mL (<0.06)
--- NOTE | 2020-04-18 11:01 | CMPROGNOTE_ITS ---
- If Service Date Differs Date of service: 04/18/20 Time of Service: 11:01 Care Management Progress Note Bernice presents in the ED for chest pain. Her mom, Mariely, is reportedly extremely upset that she is unable to accompany her daughter into the ED, due to current Covid related visitor policies at the hospital. CM is asked to coordinate a face to face between Bernice and her mom to help alleviate anxiety. CM telephones mom who expresses her unhappiness with [facility]'s visitor policy. CM validates mom's frustration and concern for her daughter's welfare and offers to set up a face to face with Bernice and is informed that they both have cell phones and can communicate with one another through their phones. BERE also spends a few minutes with Bernice to offer support. She appears anxious and says she fears she is having a heart attack. 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 Bernice is in the process of receiving a work-up. She knows she can ask for CM to return at any time if needed.
[2020-04-18 11:08] LABS: D-Dimer 197 ng/mlFEU (<500)
[2020-04-18] MEDS: Ketorolac 15 MG/ML VIAL IVP (11:30)
== END 2020-04-18 11:47 | disposition home or self-care (01) ==
PROVIDERS: Emergency Provider Registered Nurse Emergency; PCP Physician Assistant Medical
DX: R07.89 Other chest pain (principal); M94.0 Chondrocostal junction syndrome [Tietze]
CPT/HCPCS: 80053; 81025; 93005; 96361; 96374; 99285; 71046; 81003; 81015; 83735; 84484; 85025; 85379; 93010; 99284; J1885

== ENCOUNTER 2020-05-26 14:55 | Outpatient (REF) | payer BC, SELFPAY ==
[2020-05-26 15:47] LABS: Abs Immature Grans 0.02 10^3/uL (0.0-0.06); Absolute Basophil Count 0.03 10^3/uL (0.0-0.2); Absolute Eosinophil Count 0.27 10^3/uL (0.0-0.7); Basophils % 0.3; Eosinophils % 2.3; HCT 42.7 % (36.0-46.0); HGB 14.3 g/dL (11.2-15.7); Immature Grans % 0.2; Lymphocytes % 25.2; MCH 29.9 pg (27.0-33.0); MCHC 33.5 % (32.0-36.0); MCV 89.3 fL (80-95); MPV 10.8 fL (8.0-11.0); Monocytes % 4.5; Neutrophils % 67.5; Nucleated RBC 0 %; Platelet Count 331 10^3/uL (130-400); RBC 4.78 10^6/uL (3.93-5.22); RDW 12.7 % (11.7-14.6); RDW-SD 41.3 fL; WBC 11.65 10^3/uL (4.4-10.8)
[2020-05-26 15:51] LABS: Absolute Lymphocyte Count 2.94 10^3/uL (1.2-3.4); Absolute Monocyte Count 0.52 10^3/uL (0.1-0.8); Absolute Neutrophil Count 7.86 10^3/uL (1.2-6.7)
[2020-05-26 16:22] LABS: HCG Qual (Serum) Negative
== END 2020-05-26 14:56 | disposition home or self-care (01) ==
LOC: NCHCN 14:55
PROVIDERS: PCP Physician Assistant Medical; Visit Provider Physician Assistant Medical
DX: D72.829 Elevated white blood cell count, unspecified (principal); N91.2 Amenorrhea, unspecified
CPT/HCPCS: 84703; 85025

== ENCOUNTER 2020-06-20 16:18 | Outpatient (REF) | payer BC, SELFPAY | END 2020-06-20 16:19 | disposition home or self-care (01) | LOC: NCHCN 16:18 | PROVIDERS: PCP Physician Assistant Medical; Visit Provider Physician Assistant Medical | DX: R10.9 Unspecified abdominal pain (principal) | CPT/HCPCS: 87086 ==

== ENCOUNTER 2020-07-10 01:35 | Outpatient (CLI) | payer BC, SELFPAY ==
--- NOTE | 2020-07-10 | DI.US_ITS ---
EXAM: US RENAL CLINICAL HISTORY: RT FLANK PAIN,R10.9,HEMATURIA,R31.9 TECHNIQUE: Ultrasound of both kidneys performed using standard protocol. COMPARISON: US Cardiac from 11/15/2017 FINDINGS: RIGHT KIDNEY: Measures 11.3 cm in length. No cysts evident. Normal cortical thickness and corticomedullary differen tiation .No solid masses No intrarenal calculi nor hydronephrosis. LEFT KIDNEY: Measures 14.3 cm in length. 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 Cortical mantle is normal thickness. No cortic omedullary differentiation. No cysts nor solid lesions seen in either kidney. No intrarenal calculi nor hydonephrosis. URINARY BLADDER: Prevoid volume is 23 cc Postvoid volume was not determined. No evidence of bladder mass nor diverticuli. Ureterovesical jets: Left ureteral vesicle jet was not identified. IMPRESSION: 1. Size discrepancy of the kidneys in that the left kidney is somewhat longer than typical and this appears to be related to probable double collecting system. There is no obvious hydronephrosis. 2. No other significant findings in the kidneys. Urinary bladder was apparently not adequately prepped and therefore not adequately studied. DATA REPOSITORY:
== END 2020-07-10 01:55 ==
PROVIDERS: PCP Physician Assistant Medical; Visit Provider Physician Assistant Medical
DX: N28.89 Other specified disorders of kidney and ureter (principal); R31.9 Hematuria, unspecified
CPT/HCPCS: 76770

== ENCOUNTER 2020-07-15 12:19 | Outpatient (REF) | payer BC, SELFPAY ==
[2020-07-15 16:15] LABS: Bilirubin Negative (Negative); Blood Negative (Negative); Clarity Clear (Clear); Glucose Negative (Negative); Ketones Negative (Negative); Leukocyte Esterase Negative (Negative); Nitrite Negative (Negative); Specific Gravity 1.025 (1.005-1.025); Urobilinogen 0.2 EU/dL (Up TO 0.2); pH 5.5 (5-8)
== END 2020-07-15 12:20 | disposition home or self-care (01) ==
LOC: NCHCN 12:19
PROVIDERS: PCP Physician Assistant Medical; Visit Provider Physician Assistant Medical
DX: R31.9 Hematuria, unspecified (principal)
CPT/HCPCS: 81003

== ENCOUNTER 2020-08-18 11:12 | Outpatient (REF) | payer BC, SELFPAY ==
[2020-08-20 01:47] LABS: COVID-19 RT-PCR UVMMC Result Negative (Negative)
== END 2020-08-18 11:13 | disposition home or self-care (01) ==
LOC: NCHCN 11:12
PROVIDERS: PCP Physician Assistant Medical; Visit Provider Physician Assistant Medical
DX: Z20.822 Contact with and (suspected) exposure to COVID-19 (principal); G43.909 Migraine, unspecified, not intractable, without status migrainosus
CPT/HCPCS: U0003

== ENCOUNTER 2021-01-29 14:32 | Outpatient (REF) | payer BC, SELFPAY | END 2021-01-29 14:33 | disposition home or self-care (01) | LOC: LBN 14:32 | PROVIDERS: PCP Physician Assistant Medical; Visit Provider Physician Assistant Medical | DX: L73.2 Hidradenitis suppurativa (principal) | CPT/HCPCS: 87077; 87070; 87186; 87205 ==

== ENCOUNTER 2021-03-24 16:35 | Emergency (ER) | payer OTHER, SELFPAY ==
[2021-03-24 16:40] VITALS: BP 153/92; PULSE 116; TEMP 37; O2SAT 97
--- NOTE | 2021-03-24 17:00 | DI.RAD_ITS ---
Exam(s) XR FOOT RT COMPLETE EXAM: XR FOOT RT COMPLETE CLINICAL HISTORY: trauma to medial foot. TECHNIQUE: 2D digital imaging was performed. COMPARISON: No exams were available for comparison FINDINGS: There is no evidence of acute fracture or diastasis of the Lisfranc joint. Bipartite medial hallucal sesamoid incidentally noted. No pes planus. No osseous lesions. No radiopaque foreign body. IMPRESSION: No acute osseous findings. DATA REPOSITORY: RADIATION DOSE DELIVERED:
--- NOTE | 2021-03-24 17:42 | DI.VRAD_ITS ---
PROCEDURE INFORMATION: Exam: XR Right Foot Exam date and time: 03/24/2021 5:12 PM Age: 20 years old Clinical indication: Other: Trauma to medial foot TECHNIQUE: Imaging protocol: XR Right foot. Views: 3 or more views. COMPARISON: 1. CR RIGHT FOOT COMPLETE 01/26/2016 2:08 PM 2. CR RIGHT FOOT COMPLETE 07/29/2015 12:16 PM 3. CR XR ANKLE RT COMPLETE 02/02/2019 10:37 PM FINDINGS: Bones/joints: Normal. Soft tissues: Normal. IMPRESSION: No acute findings. Dictated and Authenticated by: Janusz Mcdermott MD. Ordering:CHRIS Jacob MD
--- NOTE | 2021-03-24 17:43 | ED.GENADUL_ITS ---
Discharge Plan Disposition Patient Disposition: HOME Condition: Stable Discharge Details Clinical Impression: Contusion of foot, right Primary Care Provider: Connor Mercado ED Provider: Cecil Singh Home Meds and New Rx's Prescriptions: Continued acetaminophen [Tylenol Extra Strength] 500 mg Tablet 1,000 mg PO PRN PRNRF: 0 ibuprofen 600 mg Tablet 600 mg PO PRN PRNRF: 0 Discharge Instructions Instructions: Foot Contusion (ED), R.I.C.E. Treatment (ED) Additional Instructions: If not improving in the next 1-2 weeks please follow up for reassessment and repeat Xrays as needed. Stand Alone Forms: Work Release Discharge Data Discharge Date/Time-TO BE ENTERED AT DEPARTURE: 03/24/21 18:20 Medical Decision Making Patient presenting to the emergency department for chief complaint of right foot pain. Approximately 1 hour ago she slipped and fell striking her right foot against the ground/ice. Patient denies any other injury or trauma. Physical exam shows significant tenderness to right medial foot. No deformity noted, no lacerations or abrasions, ankle has no tenderness and full range of motion. Plan to perform radiological imaging of the foot for rule out of acute fracture Of notation initial vital signs show tachycardia and hypertension. I feel this is secondary to pain and trauma and do not feel these vital signs are worrisome at this time but will continue to monitor for change in condition. My Review of radiological imaging shows no acute fracture but pending radiologist interpretation patient was discharged with instructions on contusion and patient is agreeable to this plan of care and states understanding that she will need to return if radiologist reports shows any acute findings. After discussion of diagnosis and plan of care patient has no further needs, questions, or concerns and states clear understanding to return to the emergency department for any worsening symptoms. Imaging Data Radiologic Study: Attestation: I personally reviewed and interpreted this imaging study as follows: Imaging: X-Ray My impression: No acute soft tissue swelling, normal joint spaces, no acute fracture. HPI General Mode of arrival: ambulatory . Date/Time Provider Initiated Documentation: 03/24/21 17:07 . Limitations to Documentation: no limitations . Information obtained by: patient . History of Present Illness 20 year old F presents to the emergency department with the chief complaint of Right foot pain after fall, described as moderate, with intensity rated at 6. Quality is described as sharp, and is localized to the right and lower extremity. Patient reports no radiation. Patient started experiencing this hour(s) (1) and it has been constant. No relieving factors improve symptom(s), Movement worsens symptoms . Patient notes no other symptoms.. Patient did receive the following treatments prior to arrival, none Related Data Home Medications Medication Instructions Recorded Confirmed acetaminophen [Tylenol Extra 1,000 mg PO PRN PRN 10/31/19 03/24/21 Strength] ibuprofen 600 mg PO PRN PRN 10/31/19 03/24/21 Allergies Allergy/AdvReac Type Severity Reaction Status Date / Time Iodinated Contrast Media AdvReac Mild doesn't Unverified 03/24/21 16:44 feel well General Stated Complaint: Orthopedic ZEB: 4 Review of Systems Constitutional Constitutional: Denies headache(s) ENT Ears, Nose, Mouth, and Throat: Denies dizziness, Denies headache(s) and Denies neck pain Cardiovascular Cardiovascular: Denies chest pain, Denies syncope and Denies dyspnea Respiratory Respiratory: Denies dyspnea Gastrointestinal Gastrointestinal: Denies abdominal pain Musculoskeletal Musculoskeletal: Reports as per HPI, Denies neck pain, Denies numbness and Denies tingling Neurologic Neurologic: Denies dizziness, Denies syncope, Denies headache(s), Denies numbness and Denies tingling PFSH All Active Problems (Updated 03/24/21 @ 17:44 by Cecil Singh NP) Contusion of foot, right (Acute) Medical History ADHD Duplex kidney Surgical History No significant past surgical history Social History Smoking/Tobacco Use Status: Current every day Tobacco Type: e-cigarettes Smoking risk assessment performed?: Yes Alcohol Intake: never Drug use: Socially Substance use type: marijuana Do you feel safe at home: Yes Do you feel safe in your relationship?: Yes Female Reproductive History Menstrual control method: patch Exam Const General: not in acute distress and not diaphoretic Orientation: alert, awake and oriented x3 HENMT Head: normal to inspection, normocephalic and atraumatic Resp Effort & Inspection: normal respiratory effort and able to speak in complete sentences Cardio Rate: regular rate Rhythm: regular rhythm Neuro General: patient alert, patient awake, patient oriented x3, moves all extremities and normal light touch, pain and propioception Extrem General: normal exam except as noted Right lower extremity: foot Details: normal capillary refill, tenderness Location: of the medial foot and of the mid foot, toes with normal ROM and no edema; no abrasion and no laceration Course Vital Signs Vital signs: Vital Signs Temperature 37.0 C 03/24/21 16:40 Pulse 116 H 03/24/21 16:40 Blood Pressure 153/92 H 03/24/21 16:40 Pulse Oximetry 97 03/24/21 16:40 Temperature 37.0 C 03/24/21 16:40 Temperature Source Temporal Artery Scan 03/24/21 16:40 Pulse 116 H 03/24/21 16:40 Respiratory Effort Non-Labored 03/24/21 16:42 Blood Pressure 153/92 H 03/24/21 16:40 Blood Pressure Position Sitting 03/24/21 16:40 Pulse Oximetry 97 03/24/21 16:40 Oxygen Delivery Method Room Air 03/24/21 16:40 Oxygen Flow Rate 0 03/24/21 16:40 Pain Level 6 03/24/21 16:40
== END 2021-03-24 18:20 | disposition home or self-care (01) ==
PROVIDERS: Emergency Provider Nurse Practitioner Family; PCP Physician Assistant Medical
DX: S90.31XA Contusion of right foot, initial encounter (principal); W00.2XXA Other fall from one level to another due to ice and snow, initial encounter
CPT/HCPCS: 99283; 73630

== ENCOUNTER 2021-11-02 04:12 | Outpatient (CLI) | payer BC, SELFPAY ==
[2021-11-02 08:19] LABS: Abs Immature Grans 0.03 10^3/uL (0.0-0.06); Absolute Basophil Count 0.04 10^3/uL (0.0-0.2); Absolute Eosinophil Count 0.25 10^3/uL (0.0-0.7); Absolute Lymphocyte Count 2.36 10^3/uL (1.2-3.4); Absolute Monocyte Count 0.61 10^3/uL (0.1-0.8); Basophils % 0.5; Eosinophils % 3.1; HCT 46.1 % (36.0-46.0); HGB 15.5 g/dL (11.2-15.7); Immature Grans % 0.4; Lymphocytes % 28.8; MCH 30.2 pg (27.0-33.0); MCHC 33.6 % (32.0-36.0); MCV 90 fL (80-95); MPV 9.8 fL (8.0-11.0); Monocytes % 7.4; Neutrophils % 59.8; Platelet Count 285 10^3/uL (130-400); RBC 5.13 10^6/uL (3.93-5.22); RDW 12.6 % (11.7-14.6); WBC 8.19 10^3/uL (4.4-10.8)
[2021-11-02 09:02] LABS: ALT 20 U/L (14-59); AST 13 U/L (15-37); Albumin 3.9 g/dL (3.4-5.0); Alkaline Phosphatase 74 U/L (46-116); Anion Gap 9.9 mmol/L (3-11); BUN 10 mg/dL (7-18); Bilirubin, Total 0.3 mg/dL (0.2-1.0); CO2 24.1 mmol/L (21.0-32.0); CREATININE 0.7 mg/dL (0.55-1.02); Chloride 107 mmol/L (98-107); Glucose 100 mg/dL (74-106); Potassium 3.9 mmol/L (3.5-5.1); Sodium 141 mmol/L (136-145); Total Protein 7.2 g/dL (6.4-8.2)
[2021-11-04 13:09] LABS: IgA 75 mg/dL (85-499); Interpretation (See Note); Tissue Transglutaminase IgA <1.2 U/mL (<4.0)
[2021-11-07 17:47] LABS: Gliadin (Deamidated) Ab, IgG <10.0 U
== END 2021-11-02 04:13 | disposition home or self-care (01) ==
LOC: LBO 04:12
PROVIDERS: PCP Physician Assistant Medical; Visit Provider Physician Assistant Medical
DX: R11.2 Nausea with vomiting, unspecified (principal); D80.2 Selective deficiency of immunoglobulin A [IgA]
CPT/HCPCS: 36415; 80053; 82784; 83516; 85025

== ENCOUNTER 2021-11-09 12:14 | Outpatient (REF) | payer BC, SELFPAY ==
--- NOTE | 2021-11-09 11:45 | PAPFT_PTH ---
PATIENT: Bernice Archer LOC: [facility] U#:[id number] AGE/SX: 20/F ROOM: RE11/09/[address]: Connor Mercado : 2000 BED: DIS: 11/09/2021 SPEC #: [id number] RECD: 11/09/21 17:01 STATUS: PADMA VILLA #: [id number] LONI: 11/09/21 11:[address]: Connor Mercado DEPT: [facility] Cytology RECD BY: Tiffany Low Tissues: 1 - CX/ENDOCX FOR PAP SMEARS Procedures: PAP THIN PREP/UVM Screening Comments: [id number] (CHLAMYDIA/GC)
[2021-11-10 14:45] LABS: Chlamydia Result Negative (Negative); GC Result Negative (Negative)
== END 2021-11-09 12:15 | disposition home or self-care (01) ==
LOC: NCHCN 12:14
PROVIDERS: PCP Physician Assistant Medical; Visit Provider Physician Assistant Medical
DX: Z12.4 Encounter for screening for malignant neoplasm of cervix (principal); Z11.3 Encounter for screening for infections with a predominantly sexual mode of transmission
CPT/HCPCS: 87491; 87591; 88142

== ENCOUNTER 2022-01-01 10:27 | Emergency (ER) | payer BC, SELFPAY ==
[2022-01-01 10:35] VITALS: BP 160/97; PULSE 98; RESP 18; TEMP 36.8; O2SAT 97
--- NOTE | 2022-01-01 11:24 | W.ED.GENAD ---
Discharge Plan Disposition Patient Disposition: HOME Condition: Improving Discharge Details Clinical Impression: Pilonidal abscess Primary Care Provider: Connor Mercado ED Provider: Sea Lomeli Home Meds and New Rx's Prescriptions: New clindamycin HCl 300 mg capsule 300 mg PO QID 7 Days Qty: 28 0RF No Action escitalopram oxalate [Lexapro] 20 mg tablet 20 mg PO DAILY cyclobenzaprine 10 mg tablet 10 mg PO TID acetaminophen [Tylenol Extra Strength] 500 mg Tablet 1,000 mg PO PRN PRN ibuprofen 600 mg Tablet 600 mg PO PRN PRN Discharge Instructions Instructions: Pilonidal Cyst (ED), Abscess (ED) Additional Instructions: Please follow-up with surgical team as needed. Please return to the emergency department for any worsening symptoms such as pain swelling fevers chills or other abnormal symptoms. Take medications as prescribed Medical Decision Making 21-year-old female presents with painful swelling to superior aspect of carmen cleft over the past 1 to 2 weeks, evidence of 2 cm pilonidal abscess. No systemic signs of infection such as fever chills sweats or other abnormal symptoms. Will provide anxiolysis, analgesia local anesthetic and performed bedside I&D. Patient given lorazepam and Toradol preprocedure, L ET applied to lesion before 1% lidocaine, 11 blade used to open abscess cavity, copious amount of purulent material has been expressed. Patient be started on clindamycin. Will be given surgical referral for close follow-up. Home care instructions and return precautions given HPI General Date/Time Provider Initiated Documentation: 01/01/22 10:42. HPI Narrative: 21-year-old female history of recurrent abscesses presents with painful swelling to superior aspect of her buttock over the last 1 to 2 weeks painful to sit down. Denies drainage fevers chills Related Data Home Medications Medication Instructions Recorded Confirmed acetaminophen 500 mg tablet 1,000 mg PO PRN PRN 10/31/19 03/24/21 (Tylenol Extra Strength) ibuprofen 600 mg tablet 600 mg PO PRN PRN 10/31/19 01/01/22 escitalopram oxalate 20 mg tablet 20 mg PO DAILY 11/30/21 01/01/22 (Lexapro) cyclobenzaprine 10 mg tablet 10 mg PO TID 12/02/21 01/01/22 clindamycin HCl 300 mg capsule 300 mg PO QID 7 days #28 caps 01/01/22 Previous Rx's Medication Instructions Recorded clindamycin HCl 300 mg capsule 300 mg PO QID 7 days #28 caps 01/01/22 Allergies Allergy/AdvReac Type Severity Reaction Status Date / Time fluoxetine Allergy Severe Verified 01/01/22 10:39 Iodinated Contrast Media AdvReac Mild doesn't Unverified 01/01/22 10:39 feel well General Stated Complaint: RashLesion ZEB: 3 Review of Systems Narrative: Review of Systems Constitutional: negative Eyes: negative ENT: negative Cardiovascular: negative Respiratory: negative Gastrointestinal: negative : negative Musculoskeletal: negative Skin: Swelling Neurologic: negative Psych: negative PFSH All Active Problems (Updated 01/01/22 @ 13:11 by Sea Lomeli MD) Pilonidal abscess (Acute) Flank pain (Acute) Hematuria (Acute) Hidradenitis suppurativa (Acute) Nausea & vomiting (Acute) IgA deficiency (Acute) Contusion of foot, right (Acute) Medical History (Updated 01/01/22 @ 13:11 by Sea Lomeli MD) ADHD Cough Depression Duplex kidney Leukocytosis Migraine headache Surgical History No significant past surgical history Social History Smoking/Tobacco Use Status: Current every day Tobacco Type: e-cigarettes Smoking risk assessment performed?: Yes Alcohol Intake: never Drug use: Socially Substance use type: marijuana Do you feel safe at home: Yes Do you feel safe in your relationship?: Yes Female Reproductive History Menstrual control method: patch Exam Narrative Exam Narrative: Physical Examination General: alert, awake, cooperative, resting comfortably, no acute distress HEENT: normocephalic, atraumatic; PERRL, EOM intact, conjunctiva normal; no nasal discharge; moist mucous membranes, oral and pharyngeal mucosa normal, tolerating secretions Neck: supple, trachea midline; full ROM Chest: normal to inspection Respiratory: normal respiratory effort, speaking in full sentences, clear to auscultation, no wheezing, rales or rhonchi Cardiac: regular rate, regular rhythm, S1S2 intact, no murmurs rubs or gallops GI: abdomen soft, non-tender, non-distended; no palpable mass or hepatosplenomegaly Skin: 2 cm diameter pilonidal abscess with localized induration erythema and tenderness Neuro: AAOx3, normal speech, moving all extremities Psych: Appropriate mood and affect Course Vital Signs Vital signs: Vital Signs Temperature 36.8 C 01/01/22 10:35 Pulse 98 H 01/01/22 10:35 Respiratory Rate 18 01/01/22 10:35 Blood Pressure 160/97 H 01/01/22 10:35 Pulse Oximetry 97 01/01/22 10:35 Temperature 36.8 C 01/01/22 10:35 Temperature Source Temporal Artery Scan 01/01/22 10:35 Pulse 98 H 01/01/22 10:35 Respiratory Rate 18 01/01/22 10:35 Respiratory Effort Non-Labored 01/01/22 10:41 Blood Pressure 160/97 H 01/01/22 10:35 Blood Pressure Position Sitting 01/01/22 10:35 Pulse Oximetry 97 01/01/22 10:35 Oxygen Delivery Method Room Air 01/01/22 10:35 Oxygen Flow Rate 0 01/01/22 10:35 Procedures Abscess I/D Site: Other (Pilonidal) Sedation/analgesia: None (Lorazepam) Local Anesthetic: Lidocaine 1% Amount of anesthesia used (mL): 3 Technique: Incised with #11 Blade Amount of fluid expressed (mL): 7 Irrigation: No Packing used?: None
[2022-01-01] MEDS: Ketorolac 15 MG/ML VIAL IM (11:36)
[2022-01-01] MEDS: LORazepam 1 MG TAB PO (11:36)
[2022-01-01] MEDS: Lidocaine/Epinephri/Tetracaine Topical Gel 3 ML TP (11:36)
[2022-01-01] MEDS: Clindamycin 300 MG CAP PO (13:08)
--- NOTE | 2022-01-01 13:10 | NUR.NOTE ---
Nursing Note: PT info faxed to general surgery for follow up next week for pylonil cyst. CAMELIA Hassan
[2022-01-01 13:16] VITALS: BP 160/97; PULSE 98; RESP 18; TEMP 36.8; O2SAT 97
== END 2022-01-01 13:19 | disposition home or self-care (01) ==
PROVIDERS: Emergency Provider Emergency Medicine; PCP Physician Assistant Medical
DX: L05.01 Pilonidal cyst with abscess (principal); F17.290 Nicotine dependence, other tobacco product, uncomplicated
CPT/HCPCS: 10080; 96372; 99284; J1885

== ENCOUNTER 2022-01-04 03:31 | Emergency (ER) | payer BC, SELFPAY ==
[2022-01-04 03:41] VITALS: BP 106/88; PULSE 83; RESP 24; TEMP 36.2; O2SAT 99
--- NOTE | 2022-01-04 03:45 | RT.EKG_ITS ---
APPROVED REPORT Exam: Resting ECG Reason for Exam: SOB Patient Location: E HR:85 bpm ECG Measurements Heart Rate 85 AXIS ND 179 P 68 QRSd 94 QRS 95 QT 388 T 60 QTc 461 Conclusion Sinus rhythm...normal P axis, V-rate 60- 99
--- NOTE | 2022-01-04 03:45 | DI.CT_ITS ---
Exam(s) CT ABDOMEN PELVIS WO EXAM: CT ABDOMEN PELVIS WO CLINICAL HISTORY: right sided abdominal pain. TECHNIQUE: Imaging Protocol: Axial computed tomography images with coronal and sagittal reformatted images were created and reviewed. Oral: / no COMPARISON: CT ABD PELVIS WITH CONTRAST from 01/24/2014 FINDINGS: ABDOMEN: Lung Bases: Normal where visualized. Liver: Normal density. No measurable mass. Gallbladder and biliary tract: Somewhat contracted but otherwise unremarkable. No radiodense calculu s or dilation. Pancreas: Normal density, no abnormal calcifications or inflammatory process. Spleen: Normal. Kidneys: Normal size, contour and axis. No radiodense stones or obstructive uropathy. No masses seen. Adrenal glands: No masses seen. Lymph nodes: Within normal limits. Abdominal Aorta: Abdominal portion non-dilated. PELVIS: Bladder: Symmetric distention, no gross wall thickening. Bowel: No obstruction or bowel wall thickening. Moderate quantity of stool. Appendix normal. Peritoneal cavity: No ascites, collection or mesenteric inflammatory response. Reproductive organs: Within normal limits. Bones: Within normal limits. IMPRESSION: Unremarkable CT scan of the abdomen and pelvis. RADIATION DOSE DELIVERED: 1,111.37mGy.cm Total DLP DATA REPOSITORY: All CT scans at this facility are submitted to the National Radiology Data Registry (NRDR) Dose Index Registry (DIR) with the [employer] ([employer]). RADIATION OPTIMIZATION: All CT scans at this facility use at least one of these dose optimization te chniques: automated exposure control; mA and/or kV adjustment per patient size (includes targeted exa ms where dose is matched to clinical indication); or iterative reconstruction.
--- NOTE | 2022-01-04 03:57 | ED.GENADUL_ITS ---
Discharge Plan Disposition Patient Disposition: HOME Condition: Stable Discharge Details Clinical Impression: COVID, Shortness of breath, Right flank pain Primary Care Provider: Connor Mercado ED Provider: Juan Chacon Home Meds and New Rx's Prescriptions: Continued escitalopram oxalate [Lexapro] 20 mg tablet 20 mg PO DAILY cyclobenzaprine 10 mg tablet 10 mg PO TID acetaminophen [Tylenol Extra Strength] 500 mg Tablet 1,000 mg PO PRN PRN ibuprofen 600 mg Tablet 600 mg PO PRN PRN clindamycin HCl 300 mg capsule 300 mg PO QID 7 Days Qty: 28 0RF Discharge Instructions Instructions: COVID-19 (Coronavirus Disease 2019) (ED) Additional Instructions: you are positive for covid, your cat scan and other blood work did not show concerning findings if you feel more ill, have worsening shortness of breath or persistent vomiting return to the emergency department Medical Decision Making 21 yo female with no chronic medical problems, has had anxiety in the past, comes in after she woke up feeling short of breath and had right sided upper abdominal and flank pain. She states she went to bed feeling well and woke up with these symptoms. Denies fevers, chills, has had a dry cough, no anterior chest pain or pressure. She arrives with stable vitals and appears anxious, hyperventilating. She has clear lungs, no murmurs, no leg swelling or calf tenderness. She has tenderness with palpation to the right upper and oblique area of her abdomen, no guarding or rebound. Suspect anxiety vs panic attack but will obtain ecg and troponin to evaluate for ischemia and also cbc, cmp and ct abd/pelvis to evaluate for kidney stone vs cholecystitis. She is wells low and perc negative so doubt pe. Will treat her symptoms with toradol and ativan and reassess. blood work unremarkable and ct unremarkable, she is positive for covid, no oxygen requirement so do not feel she requires hospitalization. She is feeling much better, symptoms resolved with ativan. She is stable for d/c, suspect primarily anxiety driven presentation. Advised to f/u with pcp return precautions given Differential Diagnosis Differential Diagnosis: anxiety, pancreatitis, biliary colic, cholecystitis Medical Records Medical records reviewed: Yes I reviewed the patient's medical records. Imaging Data Radiologic Study: Attestation: I personally reviewed and interpreted this imaging study as follows: Imaging: CT Scan Radiologist's impression: no acute findings Lab Data Lab results reviewed: Yes I reviewed the patient's lab results. ECG Data Attestation: I personally reviewed and interpreted this ECG (s) as follows: Prior ECG tracings: available for review Interpretation: sinus rhythm, rate of 85, no acute st t wave ischemic findings HPI General Mode of arrival: ambulatory . Date/Time Provider Initiated Documentation: 01/04/22 03:33 . Limitations to Documentation: no limitations . Information obtained by: patient . History of Present Illness 21 year old F presents to the emergency department with the chief complaint of shortness of breath, described as moderate, Patient started experiencing this hour(s) (1) and it has been constant. No relieving factors improve symptom(s), No exacerbating factors reported . Patient notes other (abdominal pain, anxiety). Patient did receive the following treatments prior to arrival, none Related Data Home Medications Medication Instructions Recorded Confirmed acetaminophen 500 mg tablet 1,000 mg PO PRN PRN 10/31/19 01/04/22 (Tylenol Extra Strength) ibuprofen 600 mg tablet 600 mg PO PRN PRN 10/31/19 01/04/22 escitalopram oxalate 20 mg tablet 20 mg PO DAILY 11/30/21 01/04/22 (Lexapro) cyclobenzaprine 10 mg tablet 10 mg PO TID 12/02/21 01/01/22 clindamycin HCl 300 mg capsule 300 mg PO QID 7 days #28 caps 01/01/22 01/04/22 Previous Rx's Medication Instructions Recorded clindamycin HCl 300 mg capsule 300 mg PO QID 7 days #28 caps 01/01/22 Allergies Allergy/AdvReac Type Severity Reaction Status Date / Time fluoxetine Allergy Severe Verified 01/04/22 03:50 Iodinated Contrast Media AdvReac Mild doesn't Unverified 01/04/22 03:50 feel well General Stated Complaint: SOB ZEB: 2 Review of Systems All systems reviewed & are unremarkable except as noted in HPI and below Constitutional Constitutional: Denies chills, Denies fever(s) and Denies weakness Eyes Eyes: Denies loss of vision Cardiovascular Cardiovascular: Denies chest pain and Denies dyspnea Respiratory Respiratory: Denies cough and Denies dyspnea Gastrointestinal Gastrointestinal: Denies nausea and Denies vomiting Genitourinary Genitourinary: Denies dysuria Neurologic Neurologic: Denies loss of vision and Denies weakness PFSH All Active Problems (Updated 01/04/22 @ 05:38 by Juan Chacon MD) Pilonidal abscess (Acute) COVID (Acute) Shortness of breath (Acute) Right flank pain (Acute) Flank pain (Acute) Hematuria (Acute) Hidradenitis suppurativa (Acute) Nausea & vomiting (Acute) IgA deficiency (Acute) Contusion of foot, right (Acute) Medical History (Updated 01/04/22 @ 05:38 by Juan Chacon MD) ADHD Cough Depression Duplex kidney Leukocytosis Migraine headache Surgical History No significant past surgical history Social History Smoking/Tobacco Use Status: Current every day Tobacco Type: e-cigarettes Smoking risk assessment performed?: Yes Alcohol Intake: never Drug use: Socially Substance use type: marijuana Do you feel safe at home: Yes Do you feel safe in your relationship?: Yes Female Reproductive History Menstrual control method: patch Exam Const General: anxious Orientation: alert HENMT Head: normal to inspection Ears: external ears normal General nose exam: external nose normal Mouth: moist mucous membranes Eyes General: appearance normal, both eyes and all related structures Neck Neck: normal visual inspection Resp Effort & Inspection: normal respiratory effort and able to speak in complete sentences Cardio Rate: regular rate GI Palpation: soft and tender Skin General skin exam: no rashes or lesions noted Neuro General: patient alert and patient oriented x3 Extrem General: normal to inspection Psych Mental Status: mental status grossly normal Course Vital Signs Vital signs: Vital Signs Temperature 36.2 C L 01/04/22 03:41 Pulse 83 01/04/22 03:41 Respiratory Rate 24 01/04/22 03:41 Blood Pressure 106/88 01/04/22 03:41 Pulse Oximetry 99 01/04/22 03:41 Temperature 36.2 C L 01/04/22 03:41 Temperature Source Temporal Artery Scan 01/04/22 03:41 Pulse 83 01/04/22 03:41 Respiratory Rate 24 01/04/22 03:41 Respiratory Effort 01/04/22 03:45 Respiratory Depth Deep 01/04/22 03:45 Respiratory Pattern Tachypnea 01/04/22 03:45 Blood Pressure 106/88 01/04/22 03:41 Blood Pressure Position Supine 01/04/22 03:41 Pulse Oximetry 99 01/04/22 03:41 Oxygen Delivery Method Room Air 01/04/22 03:41 Oxygen Flow Rate 0 01/04/22 03:41 Pain Level 7 01/04/22 03:41
[2022-01-04 04:05] LABS: Source Nasal/Nares
--- NOTE | 2022-01-04 04:13 | NUR.NOTE ---
Nursing Note: First attempt at IV access unsuccessful. Pt mother declined further attempts to establish IV access. Provider notified.
[2022-01-04] MEDS: Ibuprofen 600 MG TAB PO (04:20)
[2022-01-04] MEDS: LORazepam 1 MG TAB PO (04:20)
[2022-01-04 04:35] LABS: Abs Immature Grans 0.04 10^3/uL (0.0-0.06); Absolute Lymphocyte Count 2.79 10^3/uL (1.2-3.4); Absolute Monocyte Count 0.77 10^3/uL (0.1-0.8); Basophils % 0.3; Eosinophils % 2.6; HCT 44.3 % (36.0-46.0); HGB 15.2 g/dL (11.2-15.7); Immature Grans % 0.3; MCH 30.2 pg (27.0-33.0); MCHC 34.3 % (32.0-36.0); MCV 88 fL (80-95); MPV 10.3 fL (8.0-11.0); Monocytes % 6.6; Neutrophils % 66.2; Platelet Count 293 10^3/uL (130-400); RBC 5.04 10^6/uL (3.93-5.22); RDW 12.2 % (11.7-14.6); RDW-SD 39.6 fL; WBC 11.63 10^3/uL (4.4-10.8)
[2022-01-04 04:39] LABS: COVID-19 PCR POSITIVE (Negative)
[2022-01-04 04:45] LABS: Absolute Basophil Count 0.03 10^3/uL (0.0-0.2)
[2022-01-04 04:48] LABS: ALT 24 U/L (14-59); AST 17 U/L (15-37); Albumin 3.9 g/dL (3.4-5.0); Alkaline Phosphatase 77 U/L (46-116); Anion Gap 13.8 mmol/L (3-11); BUN 15 mg/dL (7-18); Bilirubin, Total 0.5 mg/dL (0.2-1.0); CO2 22.2 mmol/L (21.0-32.0); CREATININE 0.7 mg/dL (0.55-1.02); Calcium 9.2 mg/dL (8.5-10.1); Chloride 102 mmol/L (98-107); Estimated GFR 125.33 (mL/min/1.73m2); Glucose 109 mg/dL (74-106); Magnesium 1.8 mg/dL (1.8-2.4); Potassium 3.2 mmol/L (3.5-5.1); Sodium 138 mmol/L (136-145); Total Protein 7.6 g/dL (6.4-8.2); Troponin I < 50 ng/L (<or=60)
[2022-01-04 04:54] LABS: Lipase 152 U/L (73-393)
--- NOTE | 2022-01-04 05:21 | DI.VRAD_ITS ---
PROCEDURE INFORMATION: Exam: CT Abdomen And Pelvis Without Contrast Exam date and time: 01/04/2022 4:40 AM Age: 21 years old Clinical indication: Localized; Patient HX: Right sided abdominal pain TECHNIQUE: Imaging protocol: Computed tomography of the abdomen and pelvis without contrast. Radiation optimization: All CT scans at this facility use at least one of these dose optimization techniques: automated exposure control; mA and/or kV adjustment per patient size (includes targeted exams where dose is matched to clinical indication); or iterative reconstruction. COMPARISON: US ABDOMEN 11/02/2021 8:30 AM FINDINGS: Liver: Normal. No mass. Gallbladder and bile ducts: Normal. No calcified stones. No ductal dilation. Pancreas: Normal. No ductal dilation. Spleen: Normal. No splenomegaly. Adrenal glands: Normal. No mass. Kidneys and ureters: Normal. No hydronephrosis. Stomach and bowel: Unremarkable. No obstruction. No mucosal thickening. Appendix: The appendix is normal. Intraperitoneal space: Unremarkable. No free air. No significant fluid collection. Vasculature: Unremarkable. No abdominal aortic aneurysm. Lymph nodes: Unremarkable. No enlarged lymph nodes. Urinary bladder: Unremarkable as visualized. Reproductive: The uterus is normal. Bones/joints: Unremarkable. No acute fracture. Soft tissues: Unremarkable. IMPRESSION: No acute findings. Dictated and Authenticated by: River Roche MD. Ordering:HOMER Martinez MD
== END 2022-01-04 05:44 | disposition home or self-care (01) ==
PROVIDERS: Emergency Provider Emergency Medicine; PCP Physician Assistant Medical
DX: U07.1 COVID-19 (principal); R10.11 Right upper quadrant pain; F17.290 Nicotine dependence, other tobacco product, uncomplicated
CPT/HCPCS: 36415; 80053; 83690; 87635; 93005; 96361; 96374; 96375; 99284; 74176; 83735; 84484; 85025; 93010

== ENCOUNTER 2022-02-07 07:20 | Emergency (ER) | payer BC, SELFPAY ==
[2022-02-07 07:25] VITALS: BP 132/83; PULSE 92; RESP 18; TEMP 36.6; O2SAT 98
--- NOTE | 2022-02-07 08:11 | ED.GENADUL_ITS ---
Discharge Plan Disposition Patient Disposition: HOME Condition: Improving Discharge Details Clinical Impression: Pilonidal cyst with abscess Primary Care Provider: Connor Mercado ED Provider: Sea Lomeli Home Meds and New Rx's Prescriptions: New doxycycline hyclate 100 mg capsule 100 mg PO BID 7 Days Qty: 14 0RF No Action escitalopram oxalate [Lexapro] 20 mg tablet 20 mg PO DAILY cyclobenzaprine 10 mg tablet 10 mg PO TID PRN acetaminophen [Tylenol Extra Strength] 500 mg Tablet 1,000 mg PO PRN PRN ibuprofen 600 mg Tablet 600 mg PO PRN PRN Discharge Instructions Instructions: Pilonidal Cyst (ED), Abscess (ED) Additional Instructions: Please follow-up with Dr. Greenberg as scheduled on Tuesday. Please take medications as prescribed. Please return to the emergency department for any further needs. Medical Decision Making 21-year-old female presents with recurrent pilonidal cyst abscess, has had multiple incisions and drainages as well as antibiotic therapy as an outpatient, is scheduled to follow-up with Dr. Greenberg of general surgery on Tuesday for evaluation in the office. Prior improvement after I&D and clindamycin however recurrence within a couple of weeks. Localized area of induration and fluctuance at carmen cleft and sacral region consistent with pilonidal cyst abscess. Patient does have multiple other sites of superficial pustules in the groin concerned that patient may have underlying hidradenitis suppurativa they are going to follow-up with dermatology in [place] in the coming weeks. Will provide localized anesthetic with LET gel, will provide anxiolysis and analgesia with Ativan and morphine, and will proceed with bedside incision and drainage. The last time patient was on clindamycin it upset her stomach will consider doxycycline for outpatient treatment. Home care instructions and return precautions to be given. No evidence of perianal or anal involvement no evidence of systemic toxicity. 9: 15 patient given 1 mg Ativan IV, 2 mg morphine IV as well as Zofran, positioned prone, L ET gel had been applied to pilonidal cyst abscess prior to procedure, 1% lidocaine with epinephrine 4 cc injected locally over abscess, 1 cm incision made with an 11 blade over abscess, copious amount of purulent material expressed, abscess cavity probed with curved forceps, some loculations were broken up and further purulent material expressed, hemostatic, dry dressing placed on top of wound. Patient did have 1 episode of emesis likely related to pain and morphine administration. Currently resting comfortably hemodynamically stable. Given prior poor reaction to clindamycin will start patient on doxycycline to cover for MRSA as well as anaerobes. Given home care instructions and strict return precautions. HPI General Date/Time Provider Initiated Documentation: 02/07/22 07:47 . HPI Narrative: 21-year-old female history of recurrent pilonidal cyst as well as multiple axial small pustules and abscesses over the past several years, presents with recurrent pain in sacral region. Denies fevers chills nausea or vomiting. Prior incision and drainage performed by myself in the past improved after I&D and antibiotics however recurs after couple of weeks. Patient has an appointment to follow-up with Dr. Greenberg of general surgery on Tuesday of next week. Related Data Home Medications Medication Instructions Recorded Confirmed acetaminophen 500 mg tablet 1,000 mg PO PRN PRN 10/31/19 02/07/22 (Tylenol Extra Strength) ibuprofen 600 mg tablet 600 mg PO PRN PRN 10/31/19 02/07/22 escitalopram oxalate 20 mg tablet 20 mg PO DAILY 11/30/21 02/07/22 (Lexapro) cyclobenzaprine 10 mg tablet 10 mg PO TID PRN 12/02/21 02/07/22 doxycycline hyclate 100 mg capsule 100 mg PO BID 7 days #14 caps 02/07/22 Previous Rx's Medication Instructions Recorded doxycycline hyclate 100 mg capsule 100 mg PO BID 7 days #14 caps 02/07/22 Allergies Allergy/AdvReac Type Severity Reaction Status Date / Time fluoxetine Allergy Severe Verified 02/07/22 07:30 Iodinated Contrast Media AdvReac Mild doesn't Unverified 02/07/22 07:30 feel well General Stated Complaint: RashLesion ZEB: 4 Review of Systems Narrative: Review of Systems Constitutional: negative Eyes: negative ENT: negative Cardiovascular: negative Respiratory: negative Gastrointestinal: negative : negative Musculoskeletal: negative Skin: Pilonidal cyst abscess Neurologic: negative Psych: negative PFSH All Active Problems (Updated 02/07/22 @ 09:17 by Sea Lomeli MD) COVID (Acute) Pilonidal cyst with abscess (Acute) Flank pain (Acute) Hematuria (Acute) Hidradenitis suppurativa (Acute) Nausea & vomiting (Acute) IgA deficiency (Acute) Contusion of foot, right (Acute) Medical History (Updated 02/07/22 @ 09:17 by Sea Lomeli MD) ADHD Cough Depression Duplex kidney Leukocytosis Migraine headache Surgical History No significant past surgical history Social History Smoking/Tobacco Use Status: Current every day Tobacco Type: e-cigarettes Smoking risk assessment performed?: Yes Alcohol Intake: never Drug use: Socially Substance use type: marijuana Do you feel safe at home: Yes Do you feel safe in your relationship?: Yes Female Reproductive History Menstrual control method: patch Exam Narrative Exam Narrative: Physical Examination General: alert, awake, cooperative, resting comfortably, no acute distress HEENT: normocephalic, atraumatic; PERRL, EOM intact, conjunctiva normal; no nasal discharge; moist mucous membranes, oral and pharyngeal mucosa normal, tolerating secretions Neck: supple, trachea midline; full ROM Chest: normal to inspection Respiratory: normal respiratory effort, speaking in full sentences, clear to auscultation, no wheezing, rales or rhonchi Cardiac: regular rate, regular rhythm, S1S2 intact, no murmurs rubs or gallops GI: abdomen soft, non-tender, non-distended; no palpable mass or hepatosplenomegaly Skin: 2.5 cm ellipsoid shaped fluctuant area of skin at carmen cleft in sacral region, some erythema and induration localized, fluctuant in nature Neuro: AAOx3, normal speech, moving all extremities Psych: Appropriate mood and affect Course Vital Signs Vital signs: Vital Signs Temperature 36.6 C 02/07/22 07:25 Pulse 92 H 02/07/22 07:25 Respiratory Rate 18 02/07/22 07:25 Blood Pressure 132/83 02/07/22 07:25 Pulse Oximetry 98 02/07/22 07:25 Temperature 36.6 C 02/07/22 07:25 Temperature Source Temporal Artery Scan 02/07/22 07:25 Pulse 92 H 02/07/22 07:25 Respiratory Rate 18 02/07/22 07:25 Respiratory Effort Non-Labored 02/07/22 07:32 Blood Pressure 132/83 02/07/22 07:25 Blood Pressure Position Sitting 02/07/22 07:25 Pulse Oximetry 98 02/07/22 07:25 Oxygen Delivery Method Room Air 02/07/22 07:25 Oxygen Flow Rate 0 02/07/22 07:25 Procedures Abscess I/D Site: Other (Pilonidal cyst abscess) Sedation/analgesia: Other (Ativan 1 mg IV, morphine 2 mg IV) Local Anesthetic: Lidocaine 1%, With Epi and Other Anesthetic (Topical LET) Amount of anesthesia used (mL): 4 Technique: Incised with #11 Blade Amount of fluid expressed (mL): 20 Irrigation: No Packing used?: None
[2022-02-07] MEDS: Lidocaine/Epinephri/Tetracaine Topical Gel 3 ML TP (08:27)
[2022-02-07] MEDS: MORPHine 10 MG/ML VIAL 2 MG IVP (08:41)
[2022-02-07] MEDS: LORazepam 2 MG/ML VIAL 1 MG IVP (08:42)
[2022-02-07] MEDS: Ondansetron 4 MG/2 ML VIAL IVP (08:43)
[2022-02-07 09:28] VITALS: BP 126/81; PULSE 64; RESP 14; O2SAT 98
[2022-02-07] MEDS: Doxycycline Hyclate 100 MG CAP PO (09:32)
== END 2022-02-07 09:40 | disposition home or self-care (01) ==
PROVIDERS: Emergency Provider Emergency Medicine; PCP Physician Assistant Medical
DX: L05.01 Pilonidal cyst with abscess (principal)
CPT/HCPCS: 10080; 96374; 96375; 99284; J2060; J2270; J2405

== ENCOUNTER 2022-03-29 04:27 | Emergency (ER) | payer BC, SELFPAY ==
[2022-03-29 04:30] VITALS: BP 146/92; PULSE 100; RESP 20; TEMP 36; O2SAT 96
--- NOTE | 2022-03-29 04:53 | ED.GENADUL_ITS ---
Discharge Plan Disposition Patient Disposition: Home Condition: Improving Discharge Details Clinical Impression: Menstrual cramps Primary Care Provider: Connor Mercado ED Provider: Chandler Ramey Home Meds and New Rx's Prescriptions: Continued escitalopram oxalate [Lexapro] 20 mg tablet 20 mg PO DAILY cyclobenzaprine 10 mg tablet 10 mg PO TID PRN acetaminophen [Tylenol Extra Strength] 500 mg Tablet 1,000 mg PO PRN PRN ibuprofen 600 mg Tablet 600 mg PO PRN PRN Discharge Instructions Additional Instructions: Home to rest this evening. May continue Tylenol and ibuprofen as needed for pain. Resume normal routine and activities. Medical Decision Making 21-year-old female presents with her mother. She had severe menstrual cramps at home associated with 1 episode of vomiting. Most consistent with menstrual cramps but must exclude miscarriage. Patient had screening urinalysis and a negative test. She was given parenteral analgesia with improvement. She is stable and improved and is appropriate to discharge home. HPI General Mode of arrival: ambulatory . Date/Time Provider Initiated Documentation: 03/29/22 04:47 . Limitations to Documentation: no limitations . Information obtained by: patient . History of Present Illness 21 year old F presents to the emergency department with the chief complaint of Menstrual cramps, described as moderate and severe, and is localized to the abdomen and pelvis. Patient reports no radiation. Patient started experiencing this hour(s) and it has been intermittent. No relieving factors improve symptom(s), No exacerbating factors reported . Patient notes denies fever/chills and nausea/vomiting. Patient did receive the following treatments prior to arrival, NSAID Related Data Home Medications Medication Instructions Recorded Confirmed acetaminophen 500 mg tablet 1,000 mg PO PRN PRN 10/31/19 02/24/22 (Tylenol Extra Strength) ibuprofen 600 mg tablet 600 mg PO PRN PRN 10/31/19 02/24/22 escitalopram oxalate 20 mg tablet 20 mg PO DAILY 11/30/21 02/24/22 (Lexapro) cyclobenzaprine 10 mg tablet 10 mg PO TID PRN 12/02/21 02/24/22 Allergies Allergy/AdvReac Type Severity Reaction Status Date / Time fluoxetine Allergy Severe Verified 02/24/22 07:52 Iodinated Contrast Media AdvReac Mild doesn't Unverified 02/24/22 07:52 feel well General Stated Complaint: Abd Prob ZEB: 3 Review of Systems Narrative: No diarrhea. No known sick contacts. Last period 1 month ago. PFSH All Active Problems (Updated 03/29/22 @ 05:39 by Chandler Ramey MD) Menstrual cramps (Acute) COVID (Acute) Flank pain (Acute) Hematuria (Acute) Hidradenitis suppurativa (Acute) Nausea & vomiting (Acute) IgA deficiency (Acute) Contusion of foot, right (Acute) Medical History ADHD Cough Depression Duplex kidney Leukocytosis Migraine headache Surgical History No significant past surgical history Social History Smoking/Tobacco Use Status: Current every day Tobacco Type: e-cigarettes Smoking risk assessment performed?: Yes Alcohol Intake: never Drug use: Socially Substance use type: marijuana Current gender identity: female Do you feel safe at home: Yes Do you feel safe in your relationship?: Yes Female Reproductive History Menstrual control method: patch Exam Narrative Exam Narrative: GEN: awake, alert, well groomed, interactive. HEAD: Normocephalic, atraumatic ENT: Mucous membranes moist, oropharynx unremarkable, External ear exam unremarkable EYES: PERRL, EOMI NECK: Full ROM, no GAYATRI, no menigismus CHEST/RESP: Nontender, clear to auscultation bilateral, no wheeze/rhonchi/rales CARDIOVASCULAR: RRR, no murmur, rub hiwot. 2+ Rad pulse bilateral ABDOMEN: Soft, nontender, no mass. +Bowel sounds EXT: Full ROM, no edema, no rash Neuro: Grossly normal neurologic exam, conversant, interactive. Psych: Speech fluent, thoughts congruent, affect normal Course Vital Signs Vital signs: Vital Signs Temperature 36 C L 03/29/22 04:30 Pulse 100 H 03/29/22 04:30 Respiratory Rate 20 03/29/22 04:30 Blood Pressure 146/92 H 03/29/22 04:30 Pulse Oximetry 96 03/29/22 04:30 Temperature 36 C L 03/29/22 04:30 Pulse 100 H 03/29/22 04:30 Respiratory Rate 20 03/29/22 04:30 Respiratory Effort 03/29/22 04:34 Blood Pressure 146/92 H 03/29/22 04:30 Blood Pressure Position Sitting 03/29/22 04:30 Pulse Oximetry 96 03/29/22 04:30 Oxygen Delivery Method Room Air 03/29/22 04:30 Oxygen Flow Rate 0 03/29/22 04:30 Pain Level 10 03/29/22 04:30
[2022-03-29 05:03] LABS: Bilirubin Negative (Negative); Blood Large (Negative); Clarity Sl Cloudy (Clear); Glucose Negative (Negative); Ketones Negative (Negative); Leukocyte Esterase Trace (Negative); Nitrite Negative (Negative); Urobilinogen 0.2 EU/dL (Up TO 0.2)
[2022-03-29] MEDS: HYDROmorphone 2 MG/ML SYR 1 MG IVP (05:06)
[2022-03-29] MEDS: Ondansetron 4 MG/2 ML VIAL IVP (05:07)
[2022-03-29] MEDS: Ketorolac 15 MG/ML VIAL IVP (05:07)
[2022-03-29 05:13] LABS: Bacteria Rare HPF (Negative); C & S Indicated? No; Crystals Negative HPF (Negative); Epithelial Cells Few HPF (Negative); Mucus Trace (Negative); RBC >50 HPF (0-2); WBC 0-2 HPF (0-5)
== END 2022-03-29 05:53 | disposition home or self-care (01) ==
PROVIDERS: Emergency Provider Emergency Medicine; PCP Physician Assistant Medical
DX: N94.4 Primary dysmenorrhea (principal)
CPT/HCPCS: 81025; 96374; 96375; 99284; 81003; 81015; 99283; J1170; J1885; J2405

== ENCOUNTER 2023-04-08 08:37 | Emergency (ER) | payer BC, SELFPAY ==
[2023-04-08 08:55] VITALS: BP 145/80; PULSE 105; TEMP 37.1; O2SAT 98
--- NOTE | 2023-04-08 09:12 | ED.GENADUL_ITS ---
Discharge Plan Disposition Patient Disposition: Home Condition: Improving Discharge Details Clinical Impression: URI (upper respiratory infection), Cough Primary Care Provider: Connor Mercado ED Provider: Sea Lomeli Home Meds and New Rx's Prescriptions: New albuterol sulfate 90 mcg/actuation HFA aerosol inhaler 2 puff inhalation Q6H PRN (Reason: shortness of breath or wheezing) Qty: 6.7 0RF No Action benzonatate 200 mg capsule 200 mg PO TID Qty: 30 0RF escitalopram oxalate [Lexapro] 20 mg tablet 20 mg PO DAILY cyclobenzaprine 10 mg tablet 10 mg PO TID PRN acetaminophen [Tylenol Extra Strength] 500 mg Tablet 1,000 mg PO PRN PRN ibuprofen 600 mg Tablet 600 mg PO PRN PRN Discharge Instructions Instructions: Upper Respiratory Infection (ED), Acute Cough (ED) Additional Instructions: Please follow-up with your primary care physician. Medical Decision Making 22-year-old female presents with cough over the last 2 weeks now productive of the last couple of days associate with chest congestion and mild shortness of breath. Mild tachycardia on arrival, otherwise normotensive nontoxic afebrile. Moving good air lungs clear bilaterally. Will obtain screening x-ray to assess for pneumonia, consider viral URI. Low suspicion for ACS PE aortic pathology pneumothorax or pleural effusion. Trial dexamethasone and albuterol. Close reassessment 10: 22 patient resting comfortably feeling better after nebs. X-ray clear. Home care instructions and return precautions given HPI General Date/Time Provider Initiated Documentation: 04/08/23 08:39 . HPI Narrative: 22-year-old female presents with productive cough for the past several days, cough present for approximately 2 weeks. Mild chest congestion shortness of breath. Related Data Home Medications Medication Instructions Recorded Confirmed acetaminophen 500 mg tablet 1,000 mg PO PRN PRN 10/31/19 04/08/23 (Tylenol Extra Strength) ibuprofen 600 mg tablet 600 mg PO PRN PRN 10/31/19 04/08/23 escitalopram oxalate 20 mg tablet 20 mg PO DAILY 11/30/21 04/08/23 (Lexapro) cyclobenzaprine 10 mg tablet 10 mg PO TID PRN 12/02/21 04/08/23 benzonatate 200 mg capsule 200 mg PO TID #30 caps 04/09/22 04/08/23 albuterol sulfate 90 mcg/actuation 2 puff inhalation Q6H PRN 04/08/23 aerosol inhaler shortness of breath or wheezing #6.7 grams Previous Rx's Medication Instructions Recorded benzonatate 200 mg capsule 200 mg PO TID #30 caps 04/09/22 albuterol sulfate 90 mcg/actuation 2 puff inhalation Q6H PRN 04/08/23 aerosol inhaler shortness of breath or wheezing #6.7 grams Allergies Allergy/AdvReac Type Severity Reaction Status Date / Time fluoxetine Allergy Severe Verified 04/08/23 08:57 Iodinated Contrast Media AdvReac Mild doesn't Unverified 04/08/23 08:57 feel well General Stated Complaint: RespSymp ZEB: 3 Review of Systems Narrative: Review of Systems Constitutional: negative Eyes: negative ENT: negative Cardiovascular: negative Respiratory: Cough, shortness of breath, congestion Gastrointestinal: negative : negative Musculoskeletal: negative Skin: negative Neurologic: negative Psych: negative PFSH All Active Problems (Updated 04/08/23 @ 10:23 by Sea Lomeli MD) Cough (Acute) URI (upper respiratory infection) (Acute) COVID (Acute) Flank pain (Acute) Hematuria (Acute) Hidradenitis suppurativa (Acute) Nausea & vomiting (Acute) IgA deficiency (Acute) Contusion of foot, right (Acute) Medical History ADHD Cough Depression Duplex kidney Leukocytosis Migraine headache Surgical History No significant past surgical history Social History Smoking/Tobacco Use Status: Current every day Tobacco Type: e-cigarettes Smoking risk assessment performed?: Yes Alcohol Intake: never Drug use: Socially Substance use type: marijuana Current gender identity: female Do you feel safe at home: Yes Do you feel safe in your relationship?: Yes Female Reproductive History Menstrual control method: patch Exam Narrative Exam Narrative: Physical Examination General: alert, awake, cooperative, resting comfortably, no acute distress HEENT: normocephalic, atraumatic; PERRL, EOM intact, conjunctiva normal; no nasal discharge; moist mucous membranes, oral and pharyngeal mucosa normal, tolerating secretions Neck: supple, trachea midline; full ROM Chest: normal to inspection Respiratory: normal respiratory effort, speaking in full sentences, clear to auscultation, no wheezing, rales or rhonchi Cardiac: regular rate, regular rhythm, S1S2 intact, no murmurs rubs or gallops GI: abdomen soft, non-tender, non-distended; no palpable mass or hepatosplenomegaly Skin: no lesions, rashes or trauma appreciated Neuro: AAOx3, normal speech, moving all extremities Psych: Appropriate mood and affect Course Vital Signs Vital signs: Vital Signs Temperature 37.1 C 04/08/23 08:55 Pulse 105 H 04/08/23 08:55 Blood Pressure 145/80 H 04/08/23 08:55 Pulse Oximetry 98 04/08/23 08:55 Temperature 37.1 C 04/08/23 08:55 Temperature Source Temporal Artery Scan 04/08/23 08:55 Pulse 105 H 04/08/23 08:55 Respiratory Effort Normal, Non-Labored 04/08/23 08:58 Blood Pressure 145/80 H 04/08/23 08:55 Pulse Oximetry 98 04/08/23 08:55 Oxygen Delivery Method Room Air 04/08/23 08:55 Oxygen Flow Rate 0 04/08/23 08:55
--- OUTSIDE RECORDS SUMMARY | 2023-04-08 09:23 | XMS_ITS | Continuity of Care Document ---
Author Name Unknown Organization [facility] Address [address] [place] [address] Encounter [facility] FIN NBR [id number] Date(s): 04/10/22 - 04/10/22 [facility] [address], [place] [address] Encounter Diagnosis Left maxillary sinusitis(Discharge Diagnosis) - 04/10/22 Discharge Disposition: Home or Self Care Attending Physician: Kiko Morgan. JOSE Allergies, Adverse Reactions, Alerts Substance Reaction Severity Status FLUoxetine Moderate Active Functional Status 04/10/22 Other exposure to Infectious Disease Non e Medications !-Augmentin 875 mg-125 mg oral tablet 1 tab, Oral, every 12 hr, # 14 tab, 0 Refill(s) Start Date: 04/10/22 Stop Date: 04/17/22 Status: Ordered cyclobenzaprine 5 mg oral tablet 5 mg = 1 tab, Oral, TID, PRN as needed for muscle spasm, # 30 tab, 0 Refill(s) Start Date: 04/10/22 Status: Ordered Lexapro 20 mg oral tablet 20 mg = 1 tab, Oral, Daily, # 30 tab, 0 Refill(s) Start Date: 04/10/22 Status: Ordered Results Laboratory List Name Date SARS-CoV-2 (COVID-19) Antigen (Binax) PO CT 04/10/22 Most recent to oldest [Reference Range]: 1 SARS-CoV-2 (COVID-19) Ag (Binax) [Negati ve] Negative (04/10/22 11:28 AM) Vital Signs Most recent to oldest [Reference Range]: 1 Peripheral Pulse Rate [60-100 bpm] 98 bp m (04/10/22 10:38 AM) Blood Pressure [90-140/60-90 mmHg] 124/8 4mmHg (04/10/22 10:38 AM) Weight 86.18 kg (04/10/22 10:38 AM) Weight Measured (lbs) 189.994 lb (04/10/22 10:38 AM) Hospital Discharge Instructions Patient Education 04/10/2022 09:59:44 Sinusitis, Adult, [id number]-Irtp Sinusitis, Adult Sinusitis is soreness and swelling (inflammation) of your sinuses. Sinuses are hollow spaces in thebones around your face. They are located: ??? Around your eyes. ??? In the middle of your forehead. ??? Behind your nose. ??? In your cheekbones. Your sinuses and nasal passages are lined with a fluid called mucus. Mucus drains out of your sinuses. Swelling can trap mucus in your sinuses. This lets germs (bacteria, virus, or fungus) grow, which leads to infection. Most of the time, this condition is caused by a virus. What are the causes? This condition is caused by: ??? Allergies. ??? Asthma. ??? Germs. ??? Things that block your nose or sinuses. ??? Growths in the nose (nasal polyps). ??? Chemicals or irritants in the air. ??? Fungus (rare). What increases the risk? You are more likely to develop this condition if: ??? You have a weak body defense system (immune system). ??? You do a lot of swimming or diving. ??? You use nasal sprays too much. ??? You smoke. What are the signs or symptoms? The main symptoms of this condition are pain and a feeling of pressure around the sinuses. Other symptoms include: ??? Stuffy nose (congestion). ??? Runny nose (drainage). ??? Swelling and warmth in the sinuses. ??? Headache. ??? Toothache. ??? A cough that may get worse at night. ??? Mucus that collects in the throat or the back of the nose (postnasal drip). ??? Being unable to smell and taste. ??? Being very tired (fatigue). ??? A fever. ??? Sore throat. ??? Bad breath. How is this diagnosed? This condition is diagnosed based on: ??? Your symptoms. ??? Your medical history. ??? A physical exam. ??? Tests to find out if your condition is short-term (acute) or long-term (chronic). Your doctor may: ??? Check your nose for growths (polyps). ??? Check your sinuses using a tool that has a light (endoscope). ??? Check for allergies or germs. ??? Do imaging tests, such as an MRI or CT scan. How is this treated? Treatment for this condition depends on the cause and whether it is short-term or long-term. ??? If caused by a virus, your symptoms should go away on their own within 10 days. You may be given medicines to relieve symptoms. They include: ??? Medicines that shrink swollen tissue in the nose. ??? Medicines that treat allergies (antihistamines). ??? A spray that treats swelling of the nostrils.? Rinses that help get rid of thick mucus in your nose (nasal saline washes). ??? If caused by bacteria, your doctor may wait to see if you will get better without treatment. You may be given antibiotic medicine if you have: ??? A very bad infection. ??? A weak body defense system. ??? If caused by growths in the nose, you may need to have surgery. Follow these instructions at home: Medicines ??? Take, use, or apply [id number]-[id number] and prescription medicines only as told by your doctor. These may include nasal sprays. ??? If you were prescribed an antibiotic medicine, take it as told by your doctor. Do not stop taking the antibiotic even if you start to feel better. Hydrate and humidify ??? Drink enough water to keep your pee (urine) pale yellow. ??? Use a cool mist humidifier to keep the humidity level in your home above 50%. ??? Breathe in steam for 10???15 minutes, 3???4 times a day, or as told by your doctor. You can do this in the bathroom while a hot shower is running. ??? Try not to spend time in cool or dry air. Rest ??? Rest as much as you can. ??? Sleep with your head raised (elevated). ??? Make sure you get enough sleep each night. General instructions ??? Put a warm, moist washcloth on your face 3???4 times a day, or as often as told by your doctor.This will help with discomfort. ??? Wash your hands often with soap and water. If there is no soap and water, use hand manager maintenance. ??? Do not smoke. Avoid being around people who are smoking (secondhand smoke). ??? Keep all follow-up visits as told by your doctor. This is important. Contact a doctor if: ??? You have a fever. ??? Your symptoms get worse. ??? Your symptoms do not get better within 10 days. Get help right away if: ??? You have a very bad headache. ??? You cannot stop throwing up (vomiting). ??? You have very bad pain or swelling around your face or eyes. ??? You have trouble seeing. ??? You feel confused. ??? Your neck is stiff. ??? You have trouble breathing. Summary ??? Sinusitis is swelling of your sinuses. Sinuses are hollow spaces in the bones around your face. ??? This condition is caused by tissues in your nose that become inflamed or swollen. This traps germs. These can lead to infection. ??? If you were prescribed an antibiotic medicine, take it as told by your doctor. Do not stop taking it even if you start to feel better. ??? Keep all follow-up visits as told by your doctor. This is important. This information is not intended to replace advice given to you by your health care provider. Make sure you discuss any questions you have with your health care provider. Document Revised: 08/28/2018 Document Reviewed: 08/28/2018 [employer] Patient Education ?? 2021 [employer]. Physician Outpatient Note * Kiko Morgan. PA: PERFORM Event Display: Office Clinic Note Physician Authored Date: [id number] BAEZROLANSI :2000 Age:21 years Sex:Female Visit Date:04/10/2022 Chief Complaint Pt reports onset on Tuesday head congestion ST and ONTIVEROS. Went to [facility] [place] yesterday where she was negative for covid, flu and rsv. She was given rx for tessalon pearles. History of Present Illness Patient is 5 days ago??started with sore throat. ??Now left sinus pressure. ??Notes moderate to severe pain left sinus. ??Occasional blood clots??in her nasal discharge. ??Sore throat continues. ??Nocough. ??Was seen in another urgent care yesterday??diagnosed negative for??COVID, flu, RSV. ??Patient states symptoms worse.?? Status post tonsillectomy. ??No abdominal pain, chest pain, shortness of breath. Physical Exam Vitals & Measurements HR:??98??(Peripheral)?? BP:??124/84?? SpO2:??99%?? WT:??86.18??kg?? Pain Score:??7?? Well-appearing no acute distress. ??Head normocephalic. ??Ears canals clear. ??No tympanic fluid.??Mouth tonsils absent. ??No exudate uvula midline.?? Sinuses tender left maxillary sinuses reproduces her symptoms. ??Lungs clear to auscultation. ??Heart regular rate rhythm. Assessment/Plan 1.??Left maxillary sinusitis??J32.0 Reviewed with the patient through shared decision making that this is most likely viral however given her severe worsening symptoms and bloody nasal discharge??this could represent early bacterial infection. ??Patient is aware the risk benefits and alternatives to antibiotic use in this instance. ??She is made a full and informed decision to take antibiotics. ??Augmentin prescribed. ??Follow-up if not improving over the next several days. Ordered: !-Augmentin 875 mg-125 mg oral tablet, 1 tab, Oral, every 12 hr, # 14 tab, 0 Refill(s) ?? Patient Instructions Finish all antibiotics. ??Recheck if worse or not improving over the next several days. Patient Education Sinusitis, Adult, Kylq-ew-[id number] Problem List/Past Medical History Ongoing No qualifying data Historical No qualifying data Medications !-Augmentin 875 mg-125 mg oral tablet, 1 tab, Oral, every 12 hr cyclobenzaprine 5 mg oral tablet, 5 mg= 1 tab, Oral, TID, PRN Lexapro 20 mg oral tablet, 20 mg= 1 tab, Oral, Daily Allergies FLUoxetine Electronically Signed on 04/10/22 11:01 AM Kiko GARCIA Outpatient Summary note * Kiko GARCIA: PERFORM Event Display: Ambulatory Patient Summary Authored Date: [id number] RUBEN BAEZ :2000 Age:21 years Sex:Female Visit Date:04/10/2022 Ambulatory Visit Instructions We would like to thank you for allowing us to assist you with your healthcare needs. The following includes patient education materials and information regarding your injury/illness. After you leave the office, you may get your health information including your test results, physician notes and discharge information by accessing your Patient Portal. If you do not have a patient portal account set up, please contact __. Your Next Steps Instructions From Your Care Team Finish all antibiotics. ??Recheck if worse or not improving over the next several days. Medications What How Much When Why Instructions New amoxicillin-clavulanate (!-Augmentin 875 mg-125 mg oral tablet) 1 tab Oral (given by mouth) Every 12 hours Left maxillary sinusitis Duration: 7 Days Printed Prescription Unchanged cyclobenzaprine (cyclobenzaprine 5 mg oral tablet) 1 tab Oral (given by mouth) 3 times a day as needed for as needed for muscle spasm Unchanged escitalopram (Lexapro 20 mg oral tablet) 1 tab Oral (given by mouth) Every day Your Summary Your Diagnosis Left maxillary sinusitis Your Care Team Attending Physician - Kiko GARCIA Allergies FLUoxetine Education Materials Sinusitis, Adult Sinusitis is soreness and swelling (inflammation) of your sinuses. Sinuses are hollow spaces in thebones around your face. They are located: ? Around your eyes. ? In the middle of your forehead. ? Behind your nose. ? In your cheekbones. Your sinuses and nasal passages are lined with a fluid called mucus. Mucus drains out of your sinuses. Swelling can trap mucus in your sinuses. This lets germs (bacteria, virus, or fungus) grow, which leads to infection. Most of the time, this condition is caused by a virus. What are the causes? This condition is caused by: ? Allergies. ? Asthma. ? Germs. ? Things that block your nose or sinuses. ? Growths in the nose (nasal polyps). ? Chemicals or irritants in the air. ? Fungus (rare). What increases the risk? You are more likely to develop this condition if: ? You have a weak body defense system (immune system). ? You do a lot of swimming or diving. ? You use nasal sprays too much. ? You smoke. What are the signs or symptoms? The main symptoms of this condition are pain and a feeling of pressure around the sinuses. Other symptoms include: ? Stuffy nose (congestion). ? Runny nose (drainage). ? Swelling and warmth in the sinuses. ? Headache. ? Toothache. ? A cough that may get worse at night. ? Mucus that collects in the throat or the back of the nose (postnasal drip). ? Being unable to smell and taste. ? Being very tired (fatigue). ? A fever. ? Sore throat. ? Bad breath. How is this diagnosed? This condition is diagnosed based on: ? Your symptoms. ? Your medical history. ? A physical exam. ? Tests to find out if your condition is short-term (acute) or long-term (chronic). Your doctor may: ? Check your nose for growths (polyps). ? Check your sinuses using a tool that has a light (endoscope). ? Check for allergies or germs. ? Do imaging tests, such as an MRI or CT scan. How is this treated? Treatment for this condition depends on the cause and whether it is short-term or long-term. ? If caused by a virus, your symptoms should go away on their own within 10 days. You may be given medicines to relieve symptoms. They include: ? Medicines that shrink swollen tissue in the nose. ? Medicines that treat allergies (antihistamines). ? A spray that treats swelling of the nostrils.? Rinses that help get rid of thick mucus in your nose (nasal saline washes). ? If caused by bacteria, your doctor may wait to see if you will get better without treatment. You may be given antibiotic medicine if you have: ? A very bad infection. ? A weak body defense system. ? If caused by growths in the nose, you may need to have surgery. Follow these instructions at home: Medicines ? Take, use, or apply tizq-cln-zzciizq and prescription medicines only as told by your doctor. These may include nasal sprays. ? If you were prescribed an antibiotic medicine, take it as told by your doctor. Do not stop taking the antibiotic even if you start to feel better. Hydrate and humidify ? Drink enough water to keep your pee (urine) pale yellow. ? Use a cool mist humidifier to keep the humidity level in your home above 50%. ? Breathe in steam for 10???15 minutes, 3???4 times a day, or as told by your doctor. You can do thisin the bathroom while a hot shower is running. ? Try not to spend time in cool or dry air. Rest ? Rest as much as you can. ? Sleep with your head raised (elevated). ? Make sure you get enough sleep each night. General instructions ? Put a warm, moist washcloth on your face 3???4 times a day, or as often as told by your doctor. This will help with discomfort. ? Wash your hands often with soap and water. If there is no soap and water, use hand manager maintenance. ? Do not smoke. Avoid being around people who are smoking (secondhand smoke). ? Keep all follow-up visits as told by your doctor. This is important. Contact a doctor if: ? You have a fever. ? Your symptoms get worse. ? Your symptoms do not get better within 10 days. Get help right away if: ? You have a very bad headache. ? You cannot stop throwing up (vomiting). ? You have very bad pain or swelling around your face or eyes. ? You have trouble seeing. ? You feel confused. ? Your neck is stiff. ? You have trouble breathing. Summary ? Sinusitis is swelling of your sinuses. Sinuses are hollow spaces in the bones around your face. ? This condition is caused by tissues in your nose that become inflamed or swollen. This traps germs.These can lead to infection. ? If you were prescribed an antibiotic medicine, take it as told by your doctor. Do not stop taking it even if you start to feel better. ? Keep all follow-up visits as told by your doctor. This is important. This information is not intended to replace advice given to you by your health care provider. Make sure you discuss any questions you have with your health care provider. Document Revised: 08/28/2018 Document Reviewed: 08/28/2018 [employer] Patient Education ?? 2021 [employer] Electronically Signed on: 04/10/2022 11:01 ESTSigned by:BRITTANY
[2023-04-08] MEDS: Albuterol/Ipratropium 3 ML UPD VIAL UPD (09:24)
[2023-04-08] MEDS: Dexamethasone 10 MG/ML VIAL PO (09:24)
--- NOTE | 2023-04-08 09:31 | DI.RAD_ITS ---
Exam(s) XR CHEST 2V PA LATERAL EXAM: XR CHEST 2V PA LATERAL CLINICAL HISTORY: productive cough. TECHNIQUE: 2D digital imaging was performed. COMPARISON: CR XR CHEST 2V PA LATERAL from 04/18/2020 FINDINGS: 2 views: Heart size is normal. The mediastinum is not widened. Lungs are clear. No infiltrates nor pleural effusions. IMPRESSION: No acute pulmonary findings. DATA REPOSITORY: RADIATION DOSE DELIVERED:
== END 2023-04-08 10:28 | disposition home or self-care (01) ==
PROVIDERS: Emergency Provider Emergency Medicine; PCP Physician Assistant Medical
DX: R05.9 Cough, unspecified (principal); J06.9 Acute upper respiratory infection, unspecified
CPT/HCPCS: 81025; 94640; 99283; 71046; J1100; J7620

== ENCOUNTER → 2023-05-18 10:15 | Outpatient (CLI) | payer OTHER, SELFPAY ==
--- NOTE | 2023-05-18 | DI.RAD_ITS ---
Exam(s) XR KNEE LT 3V AP,LAT,SAULO EXAM: XR KNEE LT 3V AP,LAT,SAULO CLINICAL HISTORY: PAIN LT KNEE, M25.562. TECHNIQUE: 2D digital imaging was performed. Three views. COMPARISON: CR LEFT KNEE 4+ VIEWS from 03/23/2017 FINDINGS: BONES: No acute fracture is present. No bony destructive lesion is seen. JOINTS: The knee is normally aligned. No joint effusion is seen. SOFT TISSUE: Normal. IMPRESSION: Normal radiographs of the left knee. DATA REPOSITORY: RADIATION DOSE DELIVERED:
== END ==
PROVIDERS: PCP Physician Assistant Medical; Visit Provider Physician Assistant Medical
DX: M25.562 Pain in left knee (principal)
CPT/HCPCS: 73562

== ENCOUNTER 2023-08-09 04:17 | Emergency (ER) | payer BC, SELFPAY ==
[2023-08-09] VITALS (8 sets, daily range): BP systolic 131–144; BP diastolic 86–99; PULSE 58–68; RESP 18; TEMP 36.3; O2SAT 96–98
--- NOTE | 2023-08-09 04:45 | DI.CT_ITS ---
Exam(s) CT ABDOMEN PELVIS W EXAM: CT ABDOMEN PELVIS W CLINICAL HISTORY: epigastric abd pain TECHNIQUE: Imaging Protocol: Axial computed tomography images with coronal and sagittal reformatted images were created and reviewed. CONTRAST MATERIAL: Intravenous: Omnipaque 350 contrast volume:100 mL Oral: No COMPARISON: CT ABD PELVIS WITH CONTRAST from 01/24/[address] ABDOMEN PELVIS WO from 01/04/2022 FINDINGS: The patient exhibited no reaction following contrast administration. ABDOMEN: Lung Bases: Normal where visualized. Liver: Normal density. No measurable mass. Portal, Superior Mesenteric, and Splenic Veins: Unremarkable. Gallbladder and Biliary Tract: No radiodense calculus or dilation. Pancreas: Normal density, no abnormal calcifications or inflammatory process. Spleen: Normal. Adrenals: No masses seen. Kidneys: Normal size, contour and axis. No radiodense stones or obstructive uropathy. No masses seen. There is a circum aortic left renal vein. Abdominal Aorta: Abdominal portion non-dilated. Bowel: No obstruction or bowel wall thickening. Appendix is unremarkable. The stomach is incompletely distended limiting evaluation. Peritoneal Cavity: No ascites, collection or mesenteric inflammatory response. No free air. Lymph Nodes: Within normal limits. Bones: Within normal limits for the patient's age. Soft Tissues: Unremarkable. PELVIS: Bladder: Symmetric distention, no gross wall thickening. Reproductive Organs: Unremarkable as visualized. Lymph Nodes: Within normal limits. Bones: Within normal limits for the patient's age. IMPRESSION: 1. No definite acute abdominal or pelvic process. 2. The bowel is underdistended particularly the stomach limiting evaluation. Please correlate for an y concern for gastritis or colitis. 3. Normal appendix. RADIATION DOSE DELIVERED: 987.66mGy.cm Total DLP DATA REPOSITORY: All CT scans at this facility are submitted to the National Radiology Data Registry (NRDR) Dose Index Registry (DIR) with the [employer] (A[employer]). RADIATION OPTIMIZATION: All CT scans at this facility use at least one of these dose optimization te chniques: automated exposure control; mA and/or kV adjustment per patient size (includes targeted exa ms where dose is matched to clinical indication); or iterative reconstruction.
[2023-08-09 05:07] LABS: Abs Immature Grans 0.03 10^3/uL (0.0-0.06); Absolute Basophil Count 0.04 10^3/uL (0.0-0.2); Absolute Eosinophil Count 0.23 10^3/uL (0.0-0.7); Absolute Lymphocyte Count 3.23 10^3/uL (1.2-3.4); Basophils % 0.4; Eosinophils % 2.1; HCT 45.7 % (36.0-46.0); HGB 14.9 g/dL (11.2-15.7); Immature Grans % 0.3; MCH 29.2 pg (27.0-33.0); MCHC 32.6 % (32.0-36.0); MCV 89 fL (80-95); MPV 10.4 fL (8.0-11.0); Monocytes % 8.3; Neutrophils % 59.9; Platelet Count 351 10^3/uL (130-400); RBC 5.11 10^6/uL (3.93-5.22); RDW 13.9 % (11.7-14.6); RDW-SD 45.8 fL; WBC 11.14 10^3/uL (4.4-10.8)
[2023-08-09 05:08] LABS: Absolute Monocyte Count 0.92 10^3/uL (0.1-0.8); Absolute Neutrophil Count 6.67 10^3/uL (1.2-6.7)
[2023-08-09] MEDS: ACETAMINOPHEN 1,000 MG/100 ML BTL 400 MG IVPB (05:15)
[2023-08-09] MEDS: Ondansetron 4 MG/2 ML VIAL IVP (05:15)
[2023-08-09] MEDS: Ketorolac 15 MG/ML VIAL IVP (05:15)
[2023-08-09 05:18] LABS: Bilirubin Negative (Negative); Blood Trace-intact (Negative); Clarity Sl Cloudy (Clear); Glucose Negative (Negative); Ketones 15 mg/dL (Negative); Leukocyte Esterase Negative (Negative); Nitrite Negative (Negative); Specific Gravity 1.025 (1.005-1.025); Urobilinogen 0.2 mg/dL (Up to 0.2)
[2023-08-09 05:26] LABS: Bacteria Few HPF (Negative); C & S Indicated? No; Casts Negative LPF (Negative); Crystals Negative HPF (Negative); Epithelial Cells Moderate HPF (Negative); Mucus Trace (Negative); RBC 0-2 HPF (0-2)
[2023-08-09] MEDS: Omnipaque 350 MG/ML 100 ML BTL IJ (05:26)
[2023-08-09] MEDS: Normal Saline - Diluent 50 ML VIAL IJ (05:30)
[2023-08-09] MEDS: Normal Saline Flush 10 ML SYR IVP (05:30)
--- NOTE | 2023-08-09 05:36 | ED.GENADUL_ITS ---
Discharge Plan Disposition Patient Disposition: Home Condition: Good Discharge Details Chief Complaint: Abd Prob Clinical Impression: Gastritis Primary Care Provider: Connor Mercado ED Provider: Jennifer Phelps Home Meds and New Rx's Prescriptions: Continued escitalopram oxalate [Lexapro] 20 mg tablet 20 mg PO DAILY cyclobenzaprine 10 mg tablet 10 mg PO TID PRN acetaminophen [Tylenol Extra Strength] 500 mg Tablet 1,000 mg PO PRN PRN ibuprofen 600 mg Tablet 600 mg PO PRN PRN Discharge Instructions Instructions: Gastritis (ED) Additional Instructions: You can try over the counter antacids if your symptoms return. Call your primary care doctor today to schedule an appointment for within one week to followup on your visit here. Return tot he emergency department for new or worsening symptoms. Stand Alone Forms: Work Release Referrals: Connor Mercado PA [Primary Care Provider] - [facility] General Mode of arrival: ambulatory . Date/Time Provider Initiated Documentation: 08/09/23 04:32 . Limitations to Documentation: no limitations . Information obtained by: patient . HPI Narrative: 22yo F presenting with epigastric abdominal pain since 9pm. Pain is dull, moderate to severe, and radiates down to her umbilicus. No alleviating or aggravating factors. No lower abdominal pain. Associated nausea, no vomiting, constipation, or diarrhea. Has not tried anything at home for pain. Otherwise in her usual state of health with no fevers, chills, rash, chest pain, shortness of breath, dysuria, hematuria, or other concerns. Related Data Home Medications Medication Instructions Recorded Confirmed acetaminophen 500 mg tablet 1,000 mg PO PRN PRN 10/31/19 08/09/23 (Tylenol Extra Strength) ibuprofen 600 mg tablet 600 mg PO PRN PRN 10/31/19 08/09/23 escitalopram oxalate 20 mg tablet 20 mg PO DAILY 11/30/21 08/09/23 (Lexapro) cyclobenzaprine 10 mg tablet 10 mg PO TID PRN 12/02/21 08/09/23 Allergies Allergy/AdvReac Type Severity Reaction Status Date / Time fluoxetine AdvReac Severe Other (See Verified 08/09/23 04:33 Comment) Iodinated Contrast Media AdvReac Mild doesn't Unverified 08/09/23 04:33 feel well General Stated Complaint: Abd Prob ZEB: 3 Review of Systems Narrative: see HPI Exam Narrative Exam Narrative: General: Alert, well appearing, well nourished, in no acute distress. Head: Normocephalic, atraumatic Neck: Trachea midline, ?Neck supple. ENT: ?MMM.? No oropharygeal lesions or exudate. Cardiac: ?RRR, no murmurs appreciated Resp: No respiratory distress. CTAB. Abd: ?Soft, non-distended, TTP of epigastrium and upper abdomen bilaterally. Voluntary guarding. No rebound. No lower abdominal tenderness. : ?No suprapubic tenderness. No CVA tenderness. Extremities: ?No deformities.? No peripheral edema. Neurologic: GCS 15. ? Moves all extremities freely against gravity Course Vital Signs Vital signs: Vital Signs Temperature 36.3 C L 08/09/23 04:26 Pulse 68 08/09/23 04:26 Respiratory Rate 18 08/09/23 04:26 Blood Pressure 132/99 H 08/09/23 04:26 Pulse Oximetry 97 08/09/23 04:26 Temperature 36.3 C L 08/09/23 04:26 Pulse 68 08/09/23 05:00 Respiratory Rate 18 08/09/23 04:26 Respiratory Effort Normal 08/09/23 04:29 Blood Pressure 144/97 H 08/09/23 05:00 Blood Pressure Mean 105 08/09/23 05:00 Pulse Oximetry 98 08/09/23 05:10 Oxygen Delivery Method Room Air 08/09/23 04:26 Oxygen Flow Rate 0 08/09/23 04:26 Pain Level 8 08/09/23 04:26 Lab/Test Results Lab/Test Results: Laboratory Tests Range/Units 08/09/23 08/09/23 04:22 04:33 WBC (4.4-10.8) 10^3/uL 11.14 H RBC (3.93-5.22) 10^6/uL 5.11 Hgb (11.2-15.7) g/dL 14.9 Hct (36.0-46.0) % 45.7 MCV (80-95) fL 89 MCH (27.0-33.0) pg 29.2 MCHC (32.0-36.0) % 32.6 RDW (11.7-14.6) % 13.9 Plt Count (130-400) 10^3/uL 351 MPV (8.0-11.0) fL 10.4 Immature Gran % 0.3 Neutrophils % 59.9 Lymphocytes % 29.0 Monocytes % 8.3 Eosinophils % 2.1 Basophils % 0.4 Nucleated RBC % (0.0-0.3) % 0.0 Absolute Neutrophils (1.2-6.7) 10^3/uL 6.67 Absolute Lymphocytes (1.2-3.4) 10^3/uL 3.23 Absolute Monocytes (0.1-0.8) 10^3/uL 0.92 H Absolute Eosinophils (0.0-0.7) 10^3/uL 0.23 Absolute Basophils (0.0-0.2) 10^3/uL 0.04 Urine Color (Yellow) Yellow Urine Clarity (Clear) Sl Cloudy Urine pH (5-8) 5.0 Ur Specific [place] (1.005-1.025) 1.025 Urine Protein (Neg-Trace) mg/dL Negative Urine Ketones (Negative) mg/dL 15 H Urine Blood (Negative) Trace-intact H Urine Nitrite (Negative) Negative Urine Bilirubin (Negative) Negative Urine Urobilinogen (Up to 0.2) mg/dL 0.2 Ur Leukocyte Esterase (Negative) Negative Urine RBC (0-2) HPF 0-2 Urine WBC (0-5) HPF 3-5 Ur Epithelial Cells (Negative) HPF Moderate Urine Crystals (Negative) HPF Negative Urine Bacteria (Negative) HPF Few Urine Casts (Negative) LPF Negative Urine Mucus (Negative) Trace Ur Culture Indicated? No Urine Glucose (Negative) mg/dL Negative POC- Test(urine) Negative Medical Decision Making 22yo F presenting with epigastric abdominal pain since 9pm with associated nausea. No lower abdominal or pelvic pain to suggest ovarian or uterine pathology. Vital signs reassuring on arrival, diffuse upper abdominal tenderness on exam. Not septic. Upreg negative. Given tylenol, toradol, and zofran for symptoms. Labs reviewed as below, CBC & CMP reassuring with no actionable abnormalities including no LFT elevations to suggest cholecystitis, lipase negative (not pancreatitis), CT abd/pelv independently reviewed, no obstructions or free fluid on my view, agree with radiology read below with no suggestion of appendicitis or other surgical pathology. On reassessment patient reports pain has dramatically improved. Repeat abdominal exam reassuring, minimal tenderness, no rebound or guarding. Discharged home to followup with PCP; discharge instructions and return precautions were reviewed with patient who verbalized understanding. All questions were answered and she is in full agreement with the plan. Imaging Data Radiologic Study: Imaging: CT Scan Radiologist's impression: IMPRESSION: 1. Gastric thickening, most likely secondary to underdistention. Cannot exclude gastritis in this setting and clinical correlation is advised. 2. Nonacute findings as outlined above. Lab Data Lab results reviewed: Yes I reviewed the patient's lab results. Labs: Laboratory Tests Range/Units 08/09/23 08/09/23 08/09/23 04:22 04:33 07:59 WBC (4.4-10.8) 10^3/uL 11.14 H RBC (3.93-5.22) 10^6/uL 5.11 Hgb (11.2-15.7) g/dL 14.9 Hct (36.0-46.0) % 45.7 MCV (80-95) fL 89 MCH (27.0-33.0) pg 29.2 MCHC (32.0-36.0) % 32.6 RDW (11.7-14.6) % 13.9 Plt Count (130-400) 10^3/uL 351 MPV (8.0-11.0) fL 10.4 Immature Gran % 0.3 Neutrophils % 59.9 Lymphocytes % 29.0 Monocytes % 8.3 Eosinophils % 2.1 Basophils % 0.4 Nucleated RBC % (0.0-0.3) % 0.0 Absolute Neutrophils (1.2-6.7) 10^3/uL 6.67 Absolute Lymphocytes (1.2-3.4) 10^3/uL 3.23 Absolute Monocytes (0.1-0.8) 10^3/uL 0.92 H Absolute Eosinophils (0.0-0.7) 10^3/uL 0.23 Absolute Basophils (0.0-0.2) 10^3/uL 0.04 Sodium (136-145) mmol/L 142 Potassium (3.5-5.1) mmol/L 3.4 L Chloride (98-107) mmol/L 104 Carbon Dioxide (21.0-32.0) mmol/L 25.2 Anion Gap (3-11) mmol/L 12.8 H BUN (7-18) mg/dL 13 Creatinine (0.55-1.02) mg/dL 0.8 Est GFR (CKD-EPI 2020) (mL/min/1.73m2) 106.11 Glucose (74-106) mg/dL 99 Calcium (8.5-10.1) mg/dL 9.2 Magnesium (1.8-2.4) mg/dL 2.2 Total Bilirubin (0.2-1.0) mg/dL 0.5 AST (15-37) U/L 11 L ALT (14-59) U/L 20 Alkaline Phosphatase (46-116) U/L 69 Troponin I (< or =60) ng/L < 50 Cancelled Total Protein (6.4-8.2) g/dL 7.5 Albumin (3.4-5.0) g/dL 4.3 Lipase (16-77) U/L 34 Urine Color (Yellow) Yellow Urine Clarity (Clear) Sl Cloudy Urine pH (5-8) 5.0 Ur Specific [place] (1.005-1.025) 1.025 Urine Protein (Neg-Trace) mg/dL Negative Urine Ketones (Negative) mg/dL 15 H Urine Blood (Negative) Trace-intact H Urine Nitrite (Negative) Negative Urine Bilirubin (Negative) Negative Urine Urobilinogen (Up to 0.2) mg/dL 0.2 Ur Leukocyte Esterase (Negative) Negative Urine RBC (0-2) HPF 0-2 Urine WBC (0-5) HPF 3-5 Ur Epithelial Cells (Negative) HPF Moderate Urine Crystals (Negative) HPF Negative Urine Bacteria (Negative) HPF Few Urine Casts (Negative) LPF Negative Urine Mucus (Negative) Trace Ur Culture Indicated? No Urine Glucose (Negative) mg/dL Negative Quality:SDOH Health Related Social Needs: No Data to Display PFSH All Active Problems (Updated 08/09/23 @ 06:34 by Jennifer Phelps MD) Gastritis (Acute) COVID (Acute) Flank pain (Acute) Hematuria (Acute) Hidradenitis suppurativa (Acute) Nausea & vomiting (Acute) IgA deficiency (Acute) Contusion of foot, right (Acute) Medical History ADHD Cough Depression Duplex kidney Leukocytosis Migraine headache Surgical History No significant past surgical history Social History Smoking/Tobacco Use Status: Current every day Tobacco Type: e-cigarettes Smoking risk assessment performed?: Yes Alcohol Intake: never Drug use: Socially Substance use type: marijuana Current gender identity: female Do you feel safe at home: Yes Do you feel safe in your relationship?: Yes Female Reproductive History Menstrual control method: patch PAWSS Have you Been Recently Intoxicated or Drunk Within the Last 30 days?: No Have you Ever Experienced Previous Episodes of Alcohol Withdrawal?: No Have you ever Experienced Withdrawal Seizures?: No Have you ever Experienced Delirium Tremens(DT)s?: No Have you ever undergone Alcohol Rehabilitation Treatment (i.e, inpt ot outpatient treatment programs)?: No Have you ever Experienced Blackouts?: No Have you ever Combined Alcohol with other Downers within the last 90 days?: No Have you ever Combined Alcohol with any other Substance of Abuse during the last 90 days?: No Positive Blood Alcohol level on Presentation? [PCS.BAL]: No Evidence of Increased Autonomic Activity (i.e. HR>120, tremor, sweating, agitation, nausea)?: No Result: 0
[2023-08-09 05:49] LABS: ALT 20 U/L (14-59); AST 11 U/L (15-37); Albumin 4.3 g/dL (3.4-5.0); Alkaline Phosphatase 69 U/L (46-116); Anion Gap 12.8 mmol/L (3-11); BUN 13 mg/dL (7-18); Bilirubin, Total 0.5 mg/dL (0.2-1.0); CO2 25.2 mmol/L (21.0-32.0); CREATININE 0.8 mg/dL (0.55-1.02); Calcium 9.2 mg/dL (8.5-10.1); Chloride 104 mmol/L (98-107); Estimated GFR 106.11 (mL/min/1.73m2); Glucose 99 mg/dL (74-106); Lipase 34 U/L (16-77); Magnesium 2.2 mg/dL (1.8-2.4); Potassium 3.4 mmol/L (3.5-5.1); Sodium 142 mmol/L (136-145); Total Protein 7.5 g/dL (6.4-8.2); Troponin I < 50 ng/L (< or =60)
--- NOTE | 2023-08-09 06:19 | DI.VRAD_ITS ---
PROCEDURE INFORMATION: Exam: CT Abdomen And Pelvis With Contrast Exam date and time: 08/09/2023 5:32 AM Age: 22 years old Clinical indication: Abdominal pain; Patient HX: Epigastric pain TECHNIQUE: Imaging protocol: Computed tomography of the abdomen and pelvis with contrast. Radiation optimization: All CT scans at this facility use at least one of these dose optimization techniques: automated exposure control; mA and/or kV adjustment per patient size (includes targeted exams where dose is matched to clinical indication); or iterative reconstruction. Contrast material: OMNIPAQUE 350; Contrast volume: 100 ml; Contrast route: INTRAVENOUS (IV); COMPARISON: CT ABDOMEN PELVIS WO 01/04/2022 4:40 AM FINDINGS: Liver: No focal hepatic lesion identified. Gallbladder and bile ducts: No radiodense gallbladder calculi seen. Pancreas: No CT evidence for acute pancreatitis. Spleen: No splenomegaly. Adrenal glands: No mass. Kidneys and ureters: No hydronephrosis or evidence for pyelonephritis. Stomach and bowel: The stomach appears thickened but is incompletely distended and suboptimally evaluated. No intestinal obstruction is evident. Areas of apparent mural thickening in the colon commensurate with underdistention. Appendix: No evidence of appendicitis. Intraperitoneal space: No free air. Vasculature: No abdominal aortic aneurysm. Lymph nodes: Nonspecific mesenteric lymph nodes. Urinary bladder: No acute findings. Reproductive: Small low-density foci in the ovaries attributed to physiologic change/follicles. Central hypodensity in the uterus, likely secretory phase endometrium. Bones/joints: No pertinent acute abnormality seen. Soft tissues: No pertinent acute abnormality seen. IMPRESSION: 1. Gastric thickening, most likely secondary to underdistention. Cannot exclude gastritis in this setting and clinical correlation is advised. 2. Nonacute findings as outlined above. Dictated and Authenticated by: Margie Vargas MD. Ordering:MADI Rodriguez MD
== END 2023-08-09 08:20 | disposition home or self-care (01) ==
PROVIDERS: Emergency Provider Student in an Organized Health Care Education/Training Program; PCP Physician Assistant Medical
DX: K29.70 Gastritis, unspecified, without bleeding (principal); F17.290 Nicotine dependence, other tobacco product, uncomplicated
CPT/HCPCS: 36415; 80053; 83690; 96365; 99285; 74177; 81003; 81015; 83735; 84484; 85025; 99284; J0131; J1885; J2405; J3490

== ENCOUNTER 2023-11-13 18:42 | Emergency (ER) | payer BC, SELFPAY ==
[2023-11-13] VITALS (12 sets, daily range): BP systolic 107–148; BP diastolic 66–113; PULSE 61–115; RESP 10–24; TEMP 36.4; O2SAT 96–99
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
[2023-11-13 19:21] LABS: Bilirubin Negative (Negative); Blood Trace-intact (Negative); Clarity Sl Cloudy (Clear); Glucose Negative (Negative); Ketones 15 mg/dL (Negative); Leukocyte Esterase Moderate (Negative); Nitrite Negative (Negative); Urobilinogen 0.2 mg/dL (Up to 0.2)
[2023-11-13 19:23] LABS: Abs Immature Grans 0.05 10^3/uL (0.0-0.06); Absolute Basophil Count 0.07 10^3/uL (0.0-0.2); Absolute Lymphocyte Count 4.18 10^3/uL (1.2-3.4); Basophils % 0.5 %; Eosinophils % 1.2 %; HCT 46.8 % (36.0-46.0); HGB 16.4 g/dL (11.2-15.7); Immature Grans % 0.4 %; Lymphocytes % 30.3 %; MCH 30.9 pg (27.0-33.0); MCV 88 fL (80-95); MPV 10.3 fL (8.0-11.0); Monocytes % 8.9 %; Neutrophils % 58.7 %; Platelet Count 362 10^3/uL (130-400); RDW-SD 45.2 fL; WBC 13.78 10^3/uL (4.4-10.8)
[2023-11-13 19:24] LABS: Absolute Eosinophil Count 0.17 10^3/uL (0.0-0.7); Absolute Monocyte Count 1.23 10^3/uL (0.1-0.8); Absolute Neutrophil Count 8.09 10^3/uL (1.2-6.7)
[2023-11-13] MEDS: Normal Saline 1,000 ML 1000 ML IV (19:25)
[2023-11-13] MEDS: MORPHine 4 MG/ML SYR IVP (19:25)
[2023-11-13] MEDS: Normal Saline 50 ML 125 ML (19:27)
[2023-11-13 19:28] LABS: Bacteria Moderate HPF (Negative); Casts Negative LPF (Negative); Crystals Negative HPF (Negative); Epithelial Cells Few HPF (Negative); Mucus Trace (Negative); RBC 0-2 HPF (0-2)
[2023-11-13] MEDS: Prochlorperazine 10 MG/2 ML VIAL 5 MG IVP (19:28)
[2023-11-13 19:29] LABS: C & S Indicated? Yes
[2023-11-13 19:32] LABS: ALT 22 U/L (14-59); AST 16 U/L (15-37); Albumin 4.5 g/dL (3.4-5.0); Alkaline Phosphatase 83 U/L (46-116); BUN 8 mg/dL (7-18); Bilirubin, Total 1.28 mg/dL (0.2-1.0); CREATININE 0.9 mg/dL (0.55-1.02); Calcium 9.7 mg/dL (8.5-10.1); Chloride 102 mmol/L (98-107); Estimated GFR 91.55 (mL/min/1.73m2); Glucose 98 mg/dL (74-106); HCG Qual (Serum) Negative; Lipase 26 U/L (16-77); Potassium 3.7 mmol/L (3.5-5.1); Sodium 138 mmol/L (136-145); Total Protein 7.8 g/dL (6.4-8.2)
[2023-11-13] MEDS: Omnipaque 350 MG/ML 100 ML BTL IJ (19:48)
[2023-11-13] MEDS: Normal Saline - Diluent 50 ML VIAL IJ (19:49)
[2023-11-13] MEDS: Normal Saline Flush 10 ML SYR IVP (19:50)
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
[2023-11-13] MEDS: LORazepam 2 MG/ML VIAL 0.5 MG IVP (20:31)
--- NOTE | 2023-11-13 21:03 | NUR.NOTE ---
Nursing Note: Pt is very angry and wants to leave now. Pt is not listening to her mother or provider. She insisted that the IV is to be taken out. Provider spoke with pt. Pt will stay until 2129 but no longer. Pt apparently had this reaction to contrast last time, where she gets angry and aggitated. Ativan 0.5 mg did not help her.
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
--- NOTE | 2023-11-13 21:21 | DI.VRAD_ITS ---
PROCEDURE INFORMATION: Exam: XR Chest Exam date and time: 11/13/2023 7:49 PM Age: 23 years old Clinical indication: Other: Ruq pain TECHNIQUE: Imaging protocol: Radiologic exam of the chest. Views: 2 views. COMPARISON: CR XR CHEST 2V PA LATERAL 04/08/2023 9:29 AM FINDINGS: Lungs: Unremarkable. No consolidation. Pleural spaces: Unremarkable. No pleural effusion. No pneumothorax. Heart/Mediastinum: Unremarkable. No cardiomegaly. Bones/joints: Unremarkable. IMPRESSION: No acute findings. Dictated and Authenticated by: Juan August MD. Ordering:DARIUS Allen MD
--- NOTE | 2023-11-13 23:00 | W.ED.GENAD ---
Discharge Plan Disposition Patient Disposition: Home Condition: Stable Discharge Details Clinical Impression: Ovarian cyst Primary Care Provider: Connor Mercado ED Provider: Tiffany Bettencourt Home Meds and New Rx's Prescriptions: New ondansetron HCl 4 mg tablet 4 mg PO Q8-10H 3 Days Qty: 9 0RF Continued cyclobenzaprine 10 mg tablet 10 mg PO TID PRN acetaminophen [Tylenol Extra Strength] 500 mg Tablet 1,000 mg PO PRN PRN ibuprofen 600 mg Tablet 600 mg PO PRN PRN Discharge Instructions Instructions: Ovarian Cyst ED Additional Instructions: Take ibuprofen and Tylenol as needed for pain I have ordered Zofran as needed for nausea and vomiting Please have your ultrasound of your pelvis tomorrow and follow-up with your doctor regarding the results Return earlier should you have new or worsening complaints including fever, chills, recurrence of pain Referrals: Connor Mercado PA [Primary Care Provider] - HPI General Date/Time Provider Initiated Documentation: 11/13/23 18:46. HPI Narrative: This 23-year-old female with past medical history of IgA deficiency, hidradenitis, flank pain presents with report of right upper quadrant pain that started this evening. Has had nausea and vomiting with a denies chance of . Denies history of similar symptoms in the past. Related Data Home Medications ?Medication ?Instructions ?Recorded ?Confirmed acetaminophen 500 mg tablet 1,000 mg PO PRN PRN 10/31/19 11/13/23 (Tylenol Extra Strength) ibuprofen 600 mg tablet 600 mg PO PRN PRN 10/31/19 11/13/23 cyclobenzaprine 10 mg tablet 10 mg PO TID PRN 12/02/21 11/13/23 ondansetron HCl 4 mg tablet 4 mg PO Q8-10H 3 days #9 tabs 11/13/23 Previous Rx's ?Medication ?Instructions ?Recorded ondansetron HCl 4 mg tablet 4 mg PO Q8-10H 3 days #9 tabs 11/13/23 Allergies Allergy/AdvReac Type Severity Reaction Status Date / Time fluoxetine AdvReac Severe Other (See Verified 08/09/23 04:33 Comment) Iodinated Contrast Media AdvReac Mild doesn't Verified 11/13/23 19:55 feel well General Stated Complaint: Abd Prob ZEB: 3 Exam Narrative Exam Narrative: Patient in acute distress, agitated, pupils equal round reactive to light and accommodation, tender predominantly in the right upper quadrant, CVA tenderness, alert and oriented x 4, no peripheral edema, distal pulses intact Course Vital Signs Vital signs: Vital Signs Temperature 36.4 C L 11/13/23 18:45 Pulse 115 H 11/13/23 18:45 Respiratory Rate 24 11/13/23 18:45 Blood Pressure 148/113 H 11/13/23 18:45 Pulse Oximetry 98 11/13/23 18:45 Temperature 36.4 C L 11/13/23 19:28 Temperature Source Skin 11/13/23 19:28 Pulse 61 11/13/23 20:46 Respiratory Rate 10 L 11/13/23 20:04 Respiratory Effort Labored 11/13/23 19:28 Blood Pressure 107/69 11/13/23 20:46 Blood Pressure Mean 80 11/13/23 20:46 Blood Pressure Position Sitting 11/13/23 19:28 Pulse Oximetry 98 11/13/23 20:51 Oxygen Delivery Method Room Air 11/13/23 20:04 Oxygen Flow Rate 0 11/13/23 20:04 Pain Level 2 11/13/23 21:56 Lab/Test Results Lab/Test Results: 11/13/23 19:10 Urine - Reflex from Ua Urine Culture - Pending Laboratory Tests Range/Units 11/13/23 11/13/23 19:07 19:10 WBC (4.4-10.8) 10^3/uL 13.78 H RBC (3.93-5.22) 10^6/uL 5.30 H Hgb (11.2-15.7) g/dL 16.4 H Hct (36.0-46.0) % 46.8 H MCV (80-95) fL 88 MCH (27.0-33.0) pg 30.9 MCHC (32.0-36.0) % 35.0 RDW (11.7-14.6) % 14.0 Plt Count (130-400) 10^3/uL 362 MPV (8.0-11.0) fL 10.3 Immature Gran % % 0.4 Neutrophils % % 58.7 Lymphocytes % % 30.3 Monocytes % % 8.9 Eosinophils % % 1.2 Basophils % % 0.5 Nucleated RBC % (0.0-0.3) % 0.0 Absolute Neutrophils (1.2-6.7) 10^3/uL 8.09 H Absolute Lymphocytes (1.2-3.4) 10^3/uL 4.18 H Absolute Monocytes (0.1-0.8) 10^3/uL 1.23 H Absolute Eosinophils (0.0-0.7) 10^3/uL 0.17 Absolute Basophils (0.0-0.2) 10^3/uL 0.07 Sodium (136-145) mmol/L 138 Potassium (3.5-5.1) mmol/L 3.7 Chloride (98-107) mmol/L 102 Carbon Dioxide (21.0-32.0) mmol/L 22.0 Anion Gap (3-11) mmol/L 14.0 H BUN (7-18) mg/dL 8 Creatinine (0.55-1.02) mg/dL 0.9 Est GFR (CKD-EPI 2020) (mL/min/1.73m2) 91.55 Glucose (74-106) mg/dL 98 Calcium (8.5-10.1) mg/dL 9.7 Total Bilirubin (0.2-1.0) mg/dL 1.28 H AST (15-37) U/L 16 ALT (14-59) U/L 22 Alkaline Phosphatase (46-116) U/L 83 Total Protein (6.4-8.2) g/dL 7.8 Albumin (3.4-5.0) g/dL 4.5 Lipase (16-77) U/L 26 Serum HCG, Qual Negative Urine Color (Yellow) Yellow Urine Clarity (Clear) Sl Cloudy Urine pH (5-8) 5.0 Ur Specific [place] (1.005-1.025) 1.020 Urine Protein (Neg-Trace) mg/dL Negative Urine Ketones (Negative) mg/dL 15 H Urine Blood (Negative) Trace-intact H Urine Nitrite (Negative) Negative Urine Bilirubin (Negative) Negative Urine Urobilinogen (Up to 0.2) mg/dL 0.2 Ur Leukocyte Esterase (Negative) Moderate H Urine RBC (0-2) HPF 0-2 Urine WBC (0-5) HPF 10-20 H Ur Epithelial Cells (Negative) HPF Few Urine Crystals (Negative) HPF Negative Urine Bacteria (Negative) HPF Moderate Urine Casts (Negative) LPF Negative Urine Mucus (Negative) Trace Ur Culture Indicated? Yes Urine Glucose (Negative) mg/dL Negative POC- Test(urine) Negative Medical Decision Making 23-year-old female in acute distress, morphine, fluids, Zofran, CT abdomen and pelvis. CT abdomen and pelvis was performed and patient has a 3.5 cm right ovarian cyst, no evidence of obvious torsion, I suspect this is a hemorrhagic cyst and likely contributing to patient's pain. At time of reassessment her pain is completely resolved and she is texting in the room. Of note, after CT scan approximately 15 minutes, she did have an episode of tachycardia but no other symptoms this lasted approximately 15 minutes and resolved with Ativan. Approximately 10 minutes later she became very aggressive and agitated, requesting to leave the emergency department. Mother states this happened the last time and she received contrast although it is a little unclear as to whether or not this is an adverse effect or personality. Patient was relatively uncooperative, but was agreeable to stay in the emergency department waiting for her CT results. We did discuss her need for outpatient pelvic ultrasound, I have low suspicion clinically for torsion given resolution of pain and well-appearing exam. Ultrasound ordered for tomorrow and Zofran sent to pharmacy as needed nausea and vomiting Quality:SDOH Health Related Social Needs: No Data to Display PFSH All Active Problems (Updated 11/13/23 @ 21:46 by JOSE Bach) Ovarian cyst (Acute) COVID (Acute) Flank pain (Acute) Hematuria (Acute) Hidradenitis suppurativa (Acute) Nausea & vomiting (Acute) IgA deficiency (Acute) Contusion of foot, right (Acute) Medical History ADHD Cough Depression Duplex kidney Leukocytosis Migraine headache Surgical History No significant past surgical history Social History Smoking/Tobacco Use Status: Current every day Tobacco Type: e-cigarettes Smoking risk assessment performed?: Yes Alcohol Intake: current Alcohol Intake frequency: a few times a month Drug use: Socially Substance use type: marijuana Housing: house Current gender identity: female Do you feel safe at home: Yes Do you feel safe in your relationship?: Yes Female Reproductive History Menstrual control method: patch
--- NOTE | 2023-11-15 10:42 | NUR.NOTE ---
Accessed Pt chart to see if there was a referral for US. There is, so we asked a provider to write one and we will fax to DI.
--- NOTE | 2023-11-15 10:47 | W.EDPROG ---
Date of service: 11/15/23 Time of Service: 10:47 Medical Decision Making Patient was seen here for abdominal pain, ovarian cyst was noted. Patient was planned to have outpatient ultrasound by my colleague Tiffany Bettencourt. 2 days later which is today the patient came looking for the ultrasound but unfortunately the order has not been placed. On behalf of my colleague, I have placed this order for a pelvic ultrasound to evaluate the ovaries. Quality:SDOH Health Related Social Needs: No Data to Display Discharge Plan Disposition Patient Disposition: Home Condition: Stable Discharge Details Clinical Impression: Ovarian cyst Primary Care Provider: Connor Mercado ED Provider: Tiffany Bettencourt Home Meds and New Rx's Prescriptions: New ondansetron HCl 4 mg tablet 4 mg PO Q8-10H 3 Days Qty: 9 0RF Continued cyclobenzaprine 10 mg tablet 10 mg PO TID PRN acetaminophen [Tylenol Extra Strength] 500 mg Tablet 1,000 mg PO PRN PRN ibuprofen 600 mg Tablet 600 mg PO PRN PRN Discharge Instructions Instructions: Ovarian Cyst ED Additional Instructions: Take ibuprofen and Tylenol as needed for pain I have ordered Zofran as needed for nausea and vomiting Please have your ultrasound of your pelvis tomorrow and follow-up with your doctor regarding the results Return earlier should you have new or worsening complaints including fever, chills, recurrence of pain Referrals: Connor Mercado PA [Primary Care Provider] - Discharge Data Discharge Date/Time-TO BE ENTERED AT DEPARTURE: 11/13/23 21:56
== END 2023-11-13 21:56 | disposition home or self-care (01) ==
PROVIDERS: Emergency Provider Physician Assistant; PCP Physician Assistant Medical
DX: N83.201 Unspecified ovarian cyst, right side (principal); R11.2 Nausea with vomiting, unspecified; N02.B1 Recurrent and persistent immunoglobulin A nephropathy with glomerular lesion; L73.2 Hidradenitis suppurativa
CPT/HCPCS: 00123; 80053; 81025; 83690; 96361; 96374; 96375; 99285; 71046; 74177; 81003; 81015; 84703; 85025; 87086; 99284; J0780; J2060; J2270; J3490

== ENCOUNTER 2023-12-22 19:19 | Outpatient (REF) | payer BC, SELFPAY ==
[2023-12-23 13:54] LABS: Chlamydia Result Negative (Negative); GC Result Negative (Negative)
== END 2023-12-22 19:20 | disposition home or self-care (01) ==
LOC: LBN 19:19
PROVIDERS: PCP Physician Assistant Medical; Visit Provider Obstetrics & Gynecology
DX: Z11.3 Encounter for screening for infections with a predominantly sexual mode of transmission (principal)
CPT/HCPCS: 87491; 87591

== ENCOUNTER 2024-04-08 20:09 | Emergency (ER) | payer BC, SELFPAY ==
[2024-04-08 20:10] VITALS: BP 143/99; PULSE 92; RESP 18; TEMP 36.5; O2SAT 98
[2024-04-08 20:42] LABS: Abs Immature Grans 0.02 10^3/uL (0.0-0.06); Absolute Eosinophil Count 0.28 10^3/uL (0.0-0.7); Absolute Monocyte Count 0.98 10^3/uL (0.1-0.8); Basophils % 0.6 %; Eosinophils % 2.2 %; HCT 44.1 % (36.0-46.0); HGB 14.9 g/dL (11.2-15.7); Immature Grans % 0.2 %; Lymphocytes % 32.3 %; MCH 30.4 pg (27.0-33.0); MCHC 33.8 % (32.0-36.0); MCV 90 fL (80-95); MPV 10.3 fL (8.0-11.0); Monocytes % 7.7 %; Platelet Count 279 10^3/uL (130-400); RDW-SD 42.7 fL; WBC 12.69 10^3/uL (4.4-10.8)
[2024-04-08 20:44] LABS: Absolute Basophil Count 0.08 10^3/uL (0.0-0.2); Absolute Neutrophil Count 7.23 10^3/uL (1.2-6.7); Bilirubin Negative (Negative); Blood Trace-intact (Negative); Clarity Clear (Clear); Glucose Negative (Negative); Ketones Negative (Negative); Leukocyte Esterase Negative (Negative); Nitrite Negative (Negative); Urobilinogen 0.2 mg/dL (Up to 0.2); pH 6.5 (5-8)
[2024-04-08] MEDS: Famotidine 20 MG/2 ML VIAL IVP (20:46)
[2024-04-08] MEDS: Ondansetron 4 MG/2 ML VIAL IVP (20:46)
[2024-04-08] MEDS: Ketorolac 15 MG/ML VIAL IVP (20:47)
[2024-04-08] MEDS: Acetaminophen 500 MG TAB 1000 MG PO (20:47)
[2024-04-08 20:52] LABS: Bacteria Few HPF (Negative); C & S Indicated? No; Casts Negative LPF (Negative); Crystals Negative HPF (Negative); Epithelial Cells Few HPF (Negative); Mucus Negative (Negative); Other Cells Negative (Negative); RBC 0-2 HPF (0-2); WBC 0-2 HPF (0-5)
[2024-04-08 21:03] LABS: ALT 14 U/L (14-59); AST 6 U/L (15-37); Albumin 3.9 g/dL (3.4-5.0); Alkaline Phosphatase 67 U/L (46-116); Anion Gap 8.3 mmol/L (3-11); BUN 11 mg/dL (7-18); CO2 25.7 mmol/L (21.0-32.0); CREATININE 0.8 mg/dL (0.55-1.02); Calcium 8.8 mg/dL (8.5-10.1); Chloride 105 mmol/L (98-107); Estimated GFR 105.45 (mL/min/1.73m2); Glucose 99 mg/dL (74-106); Lipase 49 U/L (<78); Magnesium 1.9 mg/dL (1.8-2.4); Potassium 3.8 mmol/L (3.5-5.1); Sodium 139 mmol/L (136-145); Total Protein 7.1 g/dL (6.4-8.2)
[2024-04-08 21:17] VITALS: BP 138/86; PULSE 71; RESP 16; O2SAT 98
[2024-04-08 21:19] VITALS: BP 138/86; PULSE 71; RESP 16; O2SAT 98
[2024-04-08 21:21] VITALS: RESP 16; O2SAT 98
--- NOTE | 2024-04-08 21:33 | ED.GENADUL_ITS ---
Discharge Plan Disposition Patient Disposition: Home Condition: Stable Discharge Details Clinical Impression: Gastritis Primary Care Provider: Connor Mercado ED Provider: Alice Mckeon Home Meds and New Rx's Prescriptions: New famotidine [Pepcid] 20 mg tablet 20 mg PO DAILY Qty: 30 0RF No Action etonogestrel-ethinyl estradiol [NuvaRing] 0.12-0.015 mg/24 hr ring 1 vag ring vaginal Q4W Qty: 3 2RF Rx Instructions: leave in place for 4 weeks. Then remove and place new ring. cyclobenzaprine 10 mg tablet 10 mg PO TID PRN acetaminophen [Tylenol Extra Strength] 500 mg Tablet 1,000 mg PO PRN PRN ibuprofen 600 mg Tablet 600 mg PO PRN PRN Discharge Instructions Instructions: Gastritis (DC) Additional Instructions: You were seen in the emergency department today for evaluation of abdominal pain, and received medications for management of your symptoms. Your symptoms are concerning for gastritis, and inflammation of the lining of the stomach, and I provided you with a prescription for famotidine, the medication that helped with your symptoms here in the emergency department today. Please follow-up with your primary care provider in the next few days to discuss this visit and any symptoms that change, worsen, or persist. The rest of your labs were quite reassuring, with the exception of your white blood cell count which was very mildly elevated today. Please continue to maintain good hydration and nutrition and thank you for allowing us to be part of your care. HPI General Date/Time Provider Initiated Documentation: 04/08/24 20:10 . Limitations to Documentation: no limitations . Information obtained by: patient and family . HPI Narrative: HPI: This is a 23-year-old female patient with a past medical history significant for IgA deficiency, at bedtime, who is presenting for evaluation of epigastric abdominal pain. This pain started suddenly about 1 hour ago, the patient states that she gets this pain quite frequently, but today the pain is worse than typical in severity. It is located in her epigastric region and radiates across her upper abdomen. It is worse with eating but there are no specific foods that make it worse, she has not tried any medications in the outpatient environment to manage the symptoms. In the past she has had a CT scan that did show a right ovarian cyst, which was thought to be the etiology of some prior symptoms. Today she is not experiencing any pelvic pain, vaginal bleeding or discharge, is not due for her period until April 17, last normal period early March. The patient is not utilizing any methods for contraception at this time, has had nausea but no vomiting. Denies fever and chills. No history of abdominal surgeries. Exam: Gen: Awake and alert, in no apparent distress HEENT: Non-icteric sclera Neck: Supple Lungs: No apparent respiratory distress, normal respiratory effort. CV: Appears well perfused, Strong distal pulses, symmetrical Abdomen: Non-distended, soft, tender to palpation in the epigastric region and left upper quadrant, no rigidity or rebound. Chou sign negative MSK: Moves 4 extremities without apparent limitation in ROM Skin: Visualized skin without rashes, cyanosis. Neuro: Normal Gait, no obvious focal deficits or facial asymmetry. Speaks in full, clear sentences. Psych: Appropriate for situation. MDM: This is a 23-year-old female patient presenting for evaluation of epigastric abdominal pain. My differential includes but is not limited to gastritis/PUD, pancreatitis, cholecystitis, hepatitis. Examination is less consistent with appendicitis, diverticulitis, ectopic , ovarian cyst or torsion, PID/TOA. The patient is without personal risk factors for bowel obstruction, mesenteric ischemia or aortic disease. A bedside ultrasound was obtained as noted below, somewhat limited as the gallbladder was difficult to visualize but there is no obvious pericholecystic fluid or thickened gallbladder wall. The patient did not have a sonographic Chou sign. We will provide her with medications to include Pepcid, Tylenol, and Toradol. I will obtain laboratory studies to include CBC, CMP, magnesium, lipase, urinalysis and [id number] ED Course: I independently interpreted the laboratory studies, which show a mild leukocytosis, but no anemia, or thrombocytopenia. The chemistry panel is without evidence of electrolyte abnormality, kidney dysfunction, or liver injury. Lipase is low, screen negative, UA noninfectious. The patient has had significant improvement in her symptoms on reassessment, and given the improvement I do have concern for gastritis, given the frequency and associated with the eating. I provided her with a prescription for Pepcid to trial in the outpatient environment and she will follow-up with her primary care provider with any ongoing concerns. At this time, the patient has had a full medical evaluation and is safe for discharge to home. They are hemodynamically stable, ambulatory, and tolerating PO. They are understanding of the follow-up plan and return precautions. They left our facility without incident. Alice Mckeon MD Related Data Home Medications ?Medication ?Instructions ?Recorded ?Confirmed acetaminophen 500 mg tablet 1,000 mg PO PRN PRN 10/31/19 04/08/24 (Tylenol Extra Strength) ibuprofen 600 mg tablet 600 mg PO PRN PRN 10/31/19 04/08/24 cyclobenzaprine 10 mg tablet 10 mg PO TID PRN 12/02/21 04/08/24 etonogestrel 0.12 mg-ethinyl 1 vag ring vaginal Q4W #3 ea 12/22/23 04/08/24 estradiol 0.015 mg/24 hr vaginal ring (NuvaRing) famotidine 20 mg tablet (Pepcid) 20 mg PO DAILY #30 tabs 04/08/24 Previous Rx's ?Medication ?Instructions ?Recorded etonogestrel 0.12 mg-ethinyl 1 vag ring vaginal Q4W #3 ea 12/22/23 estradiol 0.015 mg/24 hr vaginal ring (NuvaRing) famotidine 20 mg tablet (Pepcid) 20 mg PO DAILY #30 tabs 04/08/24 Allergies Allergy/AdvReac Type Severity Reaction Status Date / Time fluoxetine AdvReac Severe Other (See Verified 04/08/24 20:13 Comment) Iodinated Contrast Media AdvReac Mild doesn't Verified 04/08/24 20:13 feel well General Stated Complaint: Abd Prob ZEB: 3 Course Vital Signs Vital signs: Vital Signs Temperature 36.5 C 04/08/24 20:10 Pulse 92 H 04/08/24 20:10 Respiratory Rate 18 04/08/24 20:10 Blood Pressure 143/99 H 04/08/24 20:10 Pulse Oximetry 98 04/08/24 20:10 Temperature 36.5 C 04/08/24 20:10 Pulse 71 04/08/24 21:19 Pulse Rhythm Regular 04/08/24 21:19 Pulse Strength Normal 04/08/24 21:19 Respiratory Rate 16 04/08/24 21:21 Respiratory Effort Normal, Non-Labored 04/08/24 21:19 Respiratory Depth Normal 04/08/24 21:19 Respiratory Pattern Normal 04/08/24 21:19 Blood Pressure 138/86 04/08/24 21:19 Blood Pressure Mean 103 04/08/24 21:19 Blood Pressure Position Sitting 04/08/24 21:19 Pulse Oximetry 98 04/08/24 21:21 Pain Level 3 04/08/24 21:21 Lab/Test Results Lab/Test Results: Laboratory Tests Range/Units 04/08/24 20:30 WBC (4.4-10.8) 10^3/uL 12.69 H RBC (3.93-5.22) 10^6/uL 4.90 Hgb (11.2-15.7) g/dL 14.9 Hct (36.0-46.0) % 44.1 MCV (80-95) fL 90 MCH (27.0-33.0) pg 30.4 MCHC (32.0-36.0) % 33.8 RDW (11.7-14.6) % 13.0 Plt Count (130-400) 10^3/uL 279 MPV (8.0-11.0) fL 10.3 Immature Gran % % 0.2 Neutrophils % % 57.0 Lymphocytes % % 32.3 Monocytes % % 7.7 Eosinophils % % 2.2 Basophils % % 0.6 Nucleated RBC % (0.0-0.3) % 0.0 Absolute Neutrophils (1.2-6.7) 10^3/uL 7.23 H Absolute Lymphocytes (1.2-3.4) 10^3/uL 4.10 H Absolute Monocytes (0.1-0.8) 10^3/uL 0.98 H Absolute Eosinophils (0.0-0.7) 10^3/uL 0.28 Absolute Basophils (0.0-0.2) 10^3/uL 0.08 Sodium (136-145) mmol/L 139 Potassium (3.5-5.1) mmol/L 3.8 Chloride (98-107) mmol/L 105 Carbon Dioxide (21.0-32.0) mmol/L 25.7 Anion Gap (3-11) mmol/L 8.3 BUN (7-18) mg/dL 11 Creatinine (0.55-1.02) mg/dL 0.8 Est GFR (CKD-EPI 2020) (mL/min/1.73m2) 105.45 Glucose (74-106) mg/dL 99 Calcium (8.5-10.1) mg/dL 8.8 Magnesium (1.8-2.4) mg/dL 1.9 Total Bilirubin (0.2-1.0) mg/dL 0.20 AST (15-37) U/L 6 L ALT (14-59) U/L 14 Alkaline Phosphatase (46-116) U/L 67 Total Protein (6.4-8.2) g/dL 7.1 Albumin (3.4-5.0) g/dL 3.9 Lipase (<78) U/L 49 Urine Color (Yellow) Yellow Urine Clarity (Clear) Clear Urine pH (5-8) 6.5 Ur Specific [place] (1.005-1.025) 1.010 Urine Protein (Neg-Trace) mg/dL Negative Urine Ketones (Negative) mg/dL Negative Urine Blood (Negative) Trace-intact H Urine Nitrite (Negative) Negative Urine Bilirubin (Negative) Negative Urine Urobilinogen (Up to 0.2) mg/dL 0.2 Ur Leukocyte Esterase (Negative) Negative Urine RBC (0-2) HPF 0-2 Urine WBC (0-5) HPF 0-2 Ur Epithelial Cells (Negative) HPF Few Urine Crystals (Negative) HPF Negative Urine Bacteria (Negative) HPF Few Urine Casts (Negative) LPF Negative Urine Mucus (Negative) Negative Urine Other (Negative) Negative Ur Culture Indicated? No Urine Glucose (Negative) mg/dL Negative POC- Test(urine) Negative Medical Decision Making Quality:SDOH Health Related Social Needs: No Data to Display PFSH All Active Problems (Updated 04/08/24 @ 21:46 by Alice Mckeon MD) Gastritis (Acute) Dysmenorrhea (Acute) Flank pain (Acute) Hematuria (Acute) Hidradenitis suppurativa (Acute) Nausea & vomiting (Acute) IgA deficiency (Acute) Medical History (Updated 04/08/24 @ 21:46 by Alice Mckeon MD) COVID Cough Depression Migraine headache Leukocytosis Contusion of foot, right Duplex kidney ADHD Surgical History No significant past surgical history Social History (Updated 12/22/23 @ 13:35 by Rosemarie Sapp) Smoking/Tobacco Use Status: Current-Occasional Smokeless tobacco user: other Quit status: has quit before Smoking risk assessment performed?: Yes Alcohol Intake: current Alcohol Intake frequency: a few times a month Drug use: Socially Substance use type: marijuana Household members: family Housing: house 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[employer] Sexually active: Yes Do you think of yourself as: straight/heterosexual Current gender identity: female What type of physical activity do you participate in: regular exercise Frequency: 3-4 times per week Seatbelt use: always Helmet use: Yes Do you feel safe at home: Yes Do you feel safe in your relationship?: Yes Female Reproductive History Menstrual Age of Menarche: 14 Duration of menses: 3-5 days control method: patch History History 0 Para Hx # Term Pregnancies Multiple births Hx # Pregnancies Ectopic pregnancies AB induced Hx Number of Living Children AB spontaneous POCUS Exam (ED) Limited Gallbladder Exam DATE OF EXAM: 04/08/24 TIME OF EXAM: 21:35 PROVIDER THAT PERFORMED THE STUDY: Alice Mckeon IS THIS A REPEAT EXAM DURING THIS ENCOUNTER: No REASON FOR VISIT: Abdominal pain VISUALIZED STRUCTURES: Gallbladder and Liver PERTINENT FINDINGS/IMPRESSION: No apparent abnormalities INCIDENTAL FINDINGS: Gallbladder difficult to visualize, but no obvious echogenic stones, pericholecystic fluid, no sonographic Chou sign. Exam complete
== END 2024-04-08 21:54 | disposition home or self-care (01) ==
PROVIDERS: Emergency Provider Emergency Medicine; PCP Physician Assistant Medical
DX: R10.13 Epigastric pain (principal); K29.70 Gastritis, unspecified, without bleeding; F17.200 Nicotine dependence, unspecified, uncomplicated
CPT/HCPCS: 76705; 80053; 81025; 83690; 96374; 96375; 99284; 81003; 81015; 83735; 85025; J1885; J2405

== ENCOUNTER 2024-04-30 09:00 | Emergency (ER) | payer BC, SELFPAY ==
[2024-04-30] VITALS (15 sets, daily range): BP systolic 104–154; BP diastolic 60–132; PULSE 74–155; RESP 14–30; TEMP 36.6; O2SAT 92–100
--- NOTE | 2024-04-30 09:20 | ED.GENADUL_ITS ---
Discharge Plan Disposition Patient Disposition: Home Condition: Stable Discharge Details Clinical Impression: Abdominal pain Primary Care Provider: Connor Mercado ED Provider: Juan Chacon Home Meds and New Rx's Prescriptions: New ondansetron 4 mg tablet,disintegrating 4 mg PO Q8H PRN (Reason: nausea and vomiting) Qty: 30 0RF lorazepam 0.5 mg tablet 0.5 mg PO TID PRN (Reason: anxiety) Qty: 10 0RF Continued bisacodyl [Dulcolax (bisacodyl)] 5 mg tablet,delayed release (DR/EC) 5 mg PO QHS cyclobenzaprine 10 mg tablet 10 mg PO TID PRN acetaminophen [Tylenol Extra Strength] 500 mg Tablet 1,000 mg PO PRN PRN ibuprofen 600 mg Tablet 600 mg PO PRN PRN famotidine [Pepcid] 20 mg tablet 20 mg PO DAILY Qty: 30 0RF Discontinued etonogestrel-ethinyl estradiol [NuvaRing] 0.12-0.015 mg/24 hr ring 1 vag ring vaginal Q4W Qty: 3 2RF Rx Instructions: leave in place for 4 weeks. Then remove and place new ring. Discharge Instructions Additional Instructions: Follow-up with your primary care provider and also your general surgeon Your blood work today did not show any concerning findings If you feel more ill, have severe worsening pain or persistent vomiting return to the emergency department for reevaluation HPI General Mode of arrival: ambulatory . Date/Time Provider Initiated Documentation: 04/30/24 09:03 . Limitations to Documentation: no limitations . Information obtained by: patient . History of Present Illness 23 year old F presents to the emergency department with the chief complaint of abdominal pain, described as severe, with intensity rated at 7. Quality is described as stabbing and sharp, and is localized to the abdomen. Patient reports no radiation. Patient started experiencing this hour(s) (1) and it has been constant. No relieving factors improve symptom(s), No exacerbating factors reported . Patient notes denies chest pain, fever/chills and shortness of breath. Patient did receive the following treatments prior to arrival, none Related Data Home Medications ?Medication ?Instructions ?Recorded ?Confirmed acetaminophen 500 mg tablet 1,000 mg PO PRN PRN 10/31/19 04/30/24 (Tylenol Extra Strength) ibuprofen 600 mg tablet 600 mg PO PRN PRN 10/31/19 04/30/24 cyclobenzaprine 10 mg tablet 10 mg PO TID PRN 12/02/21 04/30/24 famotidine 20 mg tablet (Pepcid) 20 mg PO DAILY #30 tabs 04/08/24 04/30/24 bisacodyl 5 mg tablet,delayed 5 mg PO QHS 04/24/24 04/30/24 release (Dulcolax (bisacodyl)) lorazepam 0.5 mg tablet 0.5 mg PO TID PRN anxiety #10 tabs 04/30/24 ondansetron 4 mg disintegrating 4 mg PO Q8H PRN nausea and 04/30/24 tablet vomiting #30 tabs Previous Rx's ?Medication ?Instructions ?Recorded famotidine 20 mg tablet (Pepcid) 20 mg PO DAILY #30 tabs 04/08/24 lorazepam 0.5 mg tablet 0.5 mg PO TID PRN anxiety #10 tabs 04/30/24 ondansetron 4 mg disintegrating 4 mg PO Q8H PRN nausea and 04/30/24 tablet vomiting #30 tabs Allergies Allergy/AdvReac Type Severity Reaction Status Date / Time fluoxetine AdvReac Severe Other (See Verified 04/30/24 09:06 Comment) Iodinated Contrast Media AdvReac Mild doesn't Verified 04/30/24 09:06 feel well General Stated Complaint: Abd Prob ZEB: 3 Review of Systems All systems reviewed & are unremarkable except as noted in HPI and below Constitutional Constitutional: Denies chills, Denies fever(s) and Denies weakness Cardiovascular Cardiovascular: Denies chest pain and Denies dyspnea Respiratory Respiratory: Denies cough and Denies dyspnea Gastrointestinal Gastrointestinal: Reports abdominal pain, Reports nausea and Denies vomiting Neurologic Neurologic: Denies weakness Exam Const General: anxious Orientation: alert HENMT Head: normal to inspection Ears: external ears normal General nose exam: external nose normal Mouth: moist mucous membranes Eyes General: appearance normal, both eyes and all related structures Neck Neck: normal visual inspection Resp Effort & Inspection: normal respiratory effort and able to speak in complete sentences Cardio Rate: regular rate GI Palpation: soft, not firm, no guarding and tender Skin General skin exam: no rashes or lesions noted Neuro General: patient alert and patient oriented x3 Extrem General: normal to inspection Psych Mental Status: mental status grossly normal Course Vital Signs Vital signs: Vital Signs Temperature 36.6 C 04/30/24 09:04 Pulse 155 H 04/30/24 09:04 Respiratory Rate 20 04/30/24 09:04 Blood Pressure 154/132 H 04/30/24 09:04 Pulse Oximetry 95 04/30/24 09:04 Temperature 36.6 C 04/30/24 09:16 Temperature Source Oral 04/30/24 09:16 Pulse 115 H 04/30/24 09:16 Respiratory Rate 18 04/30/24 09:16 Blood Pressure 122/97 H 04/30/24 09:16 Blood Pressure Position Sitting 04/30/24 09:16 Pulse Oximetry 98 04/30/24 09:16 Oxygen Delivery Method Room Air 04/30/24 09:16 Oxygen Flow Rate 0 04/30/24 09:04 Pain Level 7 04/30/24 09:16 Medical Decision Making 23-year-old female whose had recurrent episodes of abdominal pain with negative CT and other lab work and is scheduled to have a endoscopy later this month comes in with acute onset epigastric pain while driving earlier this morning. Localizes to the epigastric region. She does have the same area where normally hurts but feels this is more severe. She has not had vomiting but has had nausea. Her abdomen is soft and nondistended. She has tenderness in the epigastric area, no right upper quadrant tenderness or Chou sign. No guarding or rebound tenderness. Could be related to an ulcer versus celiac disease versus possibly psychosomatic pain we will treat her symptoms with a GI cocktail and droperidol and check a CBC, CMP and lipase and reassess. Given negative CTs in the past do not feel CT imaging indicated unless significant lab abnormality or no improvement with medications. patient having a panic attack restless in the bed and hyperventilating, ativan ordered Labs unremarkable., Has not provided a urine but denies any urinary symptoms do not feel she has history of this. She is worsening discharge. No longer has any abdominal tenderness. Advised to follow-up as scheduled with diverter procedure for endoscopy next week, return precautions given. She did ask for a small amount of lorazepam to help with some anxiety keeping up with her which I provided Differential Diagnosis Differential Diagnosis: Pancreatitis, ulcer, psychosomatic pain Quality:SDOH Health Related Social Needs: No Data to Display PFSH All Active Problems (Updated 04/30/24 @ 11:40 by Juan Chacon MD) Abdominal pain (Acute) Gastritis (Acute) Dysmenorrhea (Acute) Flank pain (Acute) Hematuria (Acute) Hidradenitis suppurativa (Acute) Nausea & vomiting (Acute) IgA deficiency (Acute) Medical History (Updated 04/30/24 @ 11:40 by Juan Chacon MD) COVID Cough Depression Migraine headache Leukocytosis Contusion of foot, right Duplex kidney ADHD Surgical History No significant past surgical history Social History (Updated 12/22/23 @ 13:35 by Rosemarie Sapp) Smoking/Tobacco Use Status: Current-Occasional Smokeless tobacco user: other Quit status: has quit before Smoking risk assessment performed?: Yes Alcohol Intake: current Alcohol Intake frequency: a few times a month Drug use: Socially Substance use type: marijuana Household members: family Housing: house current occupation: [employer] Sexually active: Yes Do you think of yourself as: straight/heterosexual Current gender identity: female What type of physical activity do you participate in: regular exercise Frequency: 3-4 times per week Seatbelt use: always Helmet use: Yes Do you feel safe at home: Yes Do you feel safe in your relationship?: Yes Female Reproductive History Menstrual Age of Menarche: 14 Duration of menses: 3-5 days control method: patch History History 0 Para Hx # Term Pregnancies Multiple births Hx # Pregnancies Ectopic pregnancies AB induced Hx Number of Living Children AB spontaneous
[2024-04-30 09:31] LABS: Abs Immature Grans 0.02 10^3/uL (0.0-0.06); Absolute Basophil Count 0.04 10^3/uL (0.0-0.2); Absolute Eosinophil Count 0.18 10^3/uL (0.0-0.7); Absolute Lymphocyte Count 2.02 10^3/uL (1.2-3.4); Absolute Monocyte Count 1.09 10^3/uL (0.1-0.8); Absolute Neutrophil Count 5.65 10^3/uL (1.2-6.7); Basophils % 0.4 %; HCT 47.6 % (36.0-46.0); HGB 16.1 g/dL (11.2-15.7); Immature Grans % 0.2 %; Lymphocytes % 22.4 %; MCH 30.2 pg (27.0-33.0); MCHC 33.8 % (32.0-36.0); MCV 89 fL (80-95); MPV 10.1 fL (8.0-11.0); Monocytes % 12.1 %; Neutrophils % 62.9 %; Platelet Count 290 10^3/uL (130-400); RBC 5.33 10^6/uL (3.93-5.22); RDW 13.2 % (11.7-14.6); RDW-SD 42.8 fL
[2024-04-30] MEDS: Droperidol 5 MG/2 ML VIAL 2.5 MG IVP (09:35)
[2024-04-30 09:48] LABS: ALT 22 U/L (14-59); AST 15 U/L (15-37); Albumin 4.3 g/dL (3.4-5.0); Alkaline Phosphatase 87 U/L (46-116); Anion Gap 11.7 mmol/L (3-11); BUN 8 mg/dL (7-18); Bilirubin, Direct 0.1 mg/dL (0.0-0.2); Bilirubin, Total 0.52 mg/dL (0.2-1.0); CO2 24.3 mmol/L (21.0-32.0); CREATININE 0.9 mg/dL (0.55-1.02); Calcium 9.7 mg/dL (8.5-10.1); Chloride 105 mmol/L (98-107); Estimated GFR 91.55 (mL/min/1.73m2); Glucose 127 mg/dL (74-106); Lipase 20 U/L (<78); Magnesium 1.9 mg/dL (1.8-2.4); Potassium 3.8 mmol/L (3.5-5.1); Sodium 141 mmol/L (136-145)
[2024-04-30 09:56] LABS: HCG Qual (Serum) Negative
[2024-04-30] MEDS: LORazepam 2 MG/ML VIAL IVP (10:15)
== END 2024-04-30 11:50 | disposition home or self-care (01) ==
PROVIDERS: Emergency Provider Emergency Medicine; PCP Physician Assistant Medical
DX: R10.13 Epigastric pain (principal)
CPT/HCPCS: 36415; 80053; 83690; 96374; 96375; 99284; 82248; 83735; 84703; 85025; J1790; J2060

== ENCOUNTER 2024-05-18 06:58 | Day surgery (SDC) | payer BC, SELFPAY ==
--- NOTE | 2024-05-17 14:11 | ANES.PREOP_ITS ---
General Info Date of Service Date Performed: 05/18/24 Height: 5 ft 9 in Weight: 79.379 kg Body Mass Index (BMI): 25.8 Surgical Procedure: Operation Date: 05/18/24 08:20 Proposed Procedure Side Surgeon p Colonoscopy/Gastroscopy Francis Greenberg MD Meds Allergies and Home Medications Allergies Allergy/AdvReac Type Severity Reaction Status Date / Time fluoxetine AdvReac Severe Other (See Verified 05/18/24 07:22 Comment) Iodinated Contrast Media AdvReac Mild doesn't Verified 05/18/24 07:22 feel well Home Medication ?Medication ?Instructions ?Recorded acetaminophen 500 mg tablet 1,000 mg PO PRN PRN 10/31/19 (Tylenol Extra Strength) ibuprofen 600 mg tablet 600 mg PO PRN PRN 10/31/19 cyclobenzaprine 10 mg tablet 10 mg PO TID PRN 12/02/21 famotidine 20 mg tablet (Pepcid) 20 mg PO DAILY #30 tabs 04/08/24 lorazepam 0.5 mg tablet 0.5 mg PO TID PRN anxiety #10 tabs 04/30/24 Current Visit Medications: Current Medications Generic Name Dose Route Start Last Admin Trade Name Freq PRN Reason Stop Dose Admin Ringer's Solution 1,000 mls @ 80 mls/hr 05/18/24 06:00 IV 05/18/24 23:59 INFUSION MORIS IV Miscellaneous Supplies 1 each 05/18/24 06:00 Iv Access IV 05/18/24 23:59 DIRECTED MORIS Sodium Chloride 0 ml 05/18/24 06:00 Normal Saline Flush 10 Ml Syr IV 05/18/24 23:59 PRN PRN Sodium Chloride 0 ml 05/18/24 06:00 Normal Saline 10 Ml Vial IJ 05/18/24 23:59 DIRECTED PRN Sterile Water 0 ml 05/18/24 06:00 Water,Injection,Sterile 10 Ml Vial IJ 05/18/24 23:59 DIRECTED PRN PFSH Active Problems Active Problems: Problem Status Onset Code Abdominal pain Acute R10.9 Dysmenorrhea Acute N94.6 Flank pain Acute R10.9 Hematuria Acute R31.9 Hidradenitis suppurativa Acute L73.2 Nausea & vomiting Acute R11.2 IgA deficiency Acute D80.2 Medical History Medical History COVID Cough Depression Migraine headache Leukocytosis Contusion of foot, right Duplex kidney ADHD Surgical History Surgical History History of tonsillectomy and adenoidectomy No significant past surgical history Tobacco Smoking/Tobacco Use Status: Current-Occasional Tobacco Type: cigarettes Smokeless tobacco user: other Alcohol Alcohol Intake: current Alcohol intake frequency: a few times a month Substance Use Substance use: Socially Substance use type: marijuana Prental History History 0 Para Hx # Term Pregnancies Multiple births Hx # Pregnancies Ectopic pregnancies AB induced Hx Number of Living Children AB spontaneous Vital Signs and Lab Results Vital Signs Most Recent Vital Signs in EMR: Temp Pulse Resp BP Pulse Ox 36.6 C 86 18 126/93 H 97 05/18/24 07:00 05/18/24 07:00 05/18/24 07:00 05/18/24 07:00 05/18/24 07:00 Lab Results Blood Type / Crossmatch: No Data to Display Complete Blood Count: White Blood Count 9.00 10^3/uL (4.4-10.8) 04/30/24 09:23 Red Blood Count 5.33 10^6/uL (3.93-5.22) H 04/30/24 09:23 Hemoglobin 16.1 g/dL (11.2-15.7) H 04/30/24 09:23 Hematocrit 47.6 % (36.0-46.0) H 04/30/24 09:23 Platelet Count 290 10^3/uL (130-400) 04/30/24 09:23 Complete Metabolic Panel: Sodium 141 mmol/L (136-145) 04/30/24 09:23 Potassium 3.8 mmol/L (3.5-5.1) 04/30/24 09:23 Chloride 105 mmol/L (98-107) 04/30/24 09:23 Carbon Dioxide 24.3 mmol/L (21.0-32.0) 04/30/24 09:23 BUN 8 mg/dL (7-18) 04/30/24 09:23 Creatinine 0.9 mg/dL (0.55-1.02) 04/30/24 09:23 Est GFR (CKD-EPI 2020) 91.55 (mL/min/1.73m2) 04/30/24 09:23 Magnesium 1.9 mg/dL (1.8-2.4) 04/30/24 09:23 Calcium 9.7 mg/dL (8.5-10.1) 04/30/24 09:23 Albumin 4.3 g/dL (3.4-5.0) 04/30/24 09:23 Glucose 127 mg/dL (74-106) H 04/30/24 09:23 Liver Function Panel: Alanine Aminotransferase (ALT/SGPT) 22 U/L (14-59) 04/30/24 09: 23 Aspartate Amino Transf (AST/SGOT) 15 U/L (15-37) 04/30/24 09:23 Coagulation Panel: No Data to Display Cardiac Panel: No Data to Display Arterial Blood Gas: No Data to Display Venous Blood Gas: No Data to Display Pancreas Panel: Lipase 20 U/L (<78) 04/30/24 09:23 Thyroid Panel: No Data to Display Infectious Disease: No Data to Display Blood Cultures: No Data to Display Toxicology Panel: No Data to Display Panel: Serum HCG, Qualitative Negative 04/30/24 09:23 Anesthesia Assessment and Plan Anesthesia History Personal History: No History of Anesthesia Complications Family History: No Family History of Anesthesia Complications Exercise Tolerance Exercise Tolerance: Metabolic Equivalents>4 Cardiac & Pulmonary Exam Cardiac Exam: Normal S1/S2 Heart Sounds Pulmonary Exam: Clear Bilateral Breath Sounds Implantable Cardiac Device Does patient have a Pacemaker or an ICD?: No Airway Exam Known Difficult Airway: No Mallampati Class: 1 Mouth Opening: Normal (> 3cm) Thyromental Distance: Greater than 3 cm Neck Range of Motion: Full ROM Neck Circumference: Normal Teeth Condition: Normal Dentition ASA Classification ASA Score: ASA 2 Emergency Case?: No NPO Status NPO Status: NPO Clears >2 hours, Solids >8 hours Status Status: Negative HCG Anesthesia Plan Resuscitation Status: Full Code Anesthesia Technique: General Anesthesia Airway Planned: Natural Airway Monitors Used: Standard Monitors and Central Line Preoperative Comments:: 23 yo female for EGD/colo. Sig PMHx: depression, migraine, ADHD, occ smoker/etoh/cannabis. EKG: sinus. ECHO: LVEF 55-60%.
--- NOTE | 2024-05-17 18:49 | W.PM.DSUDISC ---
Date of service: 05/18/24 Discharge Plan Disposition Patient Disposition: Home Condition: Good Discharge Details Reason For Visit: EGD and colonoscopy Attending Provider: Francis Greenberg Primary Care Provider: Connor Mercado Home Meds and New Rx's Prescriptions: Continued cyclobenzaprine 10 mg tablet 10 mg PO TID PRN acetaminophen [Tylenol Extra Strength] 500 mg Tablet 1,000 mg PO PRN PRN ibuprofen 600 mg Tablet 600 mg PO PRN PRN famotidine [Pepcid] 20 mg tablet 20 mg PO DAILY Qty: 30 0RF lorazepam 0.5 mg tablet 0.5 mg PO TID PRN (Reason: anxiety) Qty: 10 0RF Discontinued bisacodyl [Dulcolax (bisacodyl)] 5 mg tablet,delayed release (DR/EC) 5 mg PO QHS ondansetron 4 mg tablet,disintegrating 4 mg PO Q8H PRN (Reason: nausea and vomiting) Qty: 30 0RF Discharge Instructions Instructions: Colon polyps Additional Instructions: Benrice, It was great seeing you today, and I hope you make a quick recovery from the procedure and that you feel well afterwards. With regards to the upper endoscopy, everything looks very good. Your esophagus and stomach show no signs of any active inflammation. Your duodenum also appears very typical. Although as we discussed before hand, celiac disease could be consistent with your previous blood test, so I did biopsies of the duodenum in addition to your stomach and your esophagus so that the pathologist can test for other things that may cause some of your symptoms. Your colonoscopy also appears fairly normal. You did have 2 small polyps in your rectum, but I suspect may be hyperplastic, or perhaps benign lymphoid aggregate. Neither 1 of these would explain your symptoms, but I did remove these today for the pathologist to review. Interestingly, he did also have a moderate to large size polyp within your large intestine as well. This is larger than I would expect for patient your age, and I have removed large polyps in the past, that have helped patients feel better. Although generally, polyps do not cause a lot of the symptoms that you described. I did remove this polyp in addition to the 2 others today, and all 3 of these will be sent off for testing. The results of the polypectomy and biopsies will take about a week or 2 to get back from the pathologist, and once I have those I will be in touch. That will give us a little time to see how you feel as well. If you need anything, or have any questions in the meantime, please do not hesitate to call, otherwise I will let you know once the pathology report is available. 1. If tolerated, consume a soft, low fiber diet for 1-2 days. [address] Do not drive, drink alcohol, operate machinery, make critical decisions, or do activities that require coordination or balance for 24 hours. 3. Because air was put into your colon during the procedure, expelling air from your rectum (passing gas or farting) is normal. 4. You may not have a bowel movement for 1-3 days because of the colonoscopy prep. This is normal. 5. You may experience a sore throat for 24 to 48 hours. You may use throat lozenges or gargle with warm salt water to relieve the discomfort. 6. Because air was put into your stomach during the procedure, you may experience some belching. 7. Go directly to the emergency room if you notice any of the following: Develop chills (warm to touch), or if you have a thermometer and your temperature is above 101 Difficulty breathing or difficultly swallowing Persistent vomiting Severe abdominal pain, other than gas cramps Severe chest pain Black, tarry stools Any bleeding ? exceeding one tablespoon 8. Call your physician if the site where your intravenous was started becomes red, swollen, painful, and warm to touch. 9. Your physician has reviewed your pre-procedure medications. Please continue to take those medications as previously ordered. You will be given specific information/education regarding any changes to your medications before leaving. Activity:: Activity as Tolerated Diet:: As Tolerated Discharge Orders Discharge Orders: Discharge Order (Routine); Ordered 05/17/24 Ordered By: Francis Greenberg DS: Diagnosis Discharge Diagnosis (1) Abdominal pain: Status: Acute Asessment and Plan: Follow-up on biopsy and polypectomy results
--- NOTE | 2024-05-17 19:01 | W.PM.ENDDOP ---
Date of service: 05/18/24 Time of Service: 08:58 Endoscopy Report DATE OF PROCEDURE: 05/18/24 PRE-OP DIAGNOSIS: abdominal pain POST-OP DIAGNOSIS: other (Normal-appearing EGD, with normal-appearing GE junction around 36 cm from the incisors. Colon polyps) PROCEDURE: EGD with biopsies and colonoscopy with polypectomy and biopsies SURGEON: Francis Greenberg ANESTHESIA TYPE: General:No Airway ESTIMATED BLOOD LOSS: 10 PATHOLOGY: other (Nondirected biopsies of duodenum, gastric antrum and body, and esophagus; rectal polyps x 2, 0.75 cm pedunculated colon polyp at 45 cm, random terminal ileum biopsies) COMPLICATIONS: None DISPOSITION: same day INDICATIONS: Bernice is a 23 year old woman with non-specific abdominal pain and an abnormal serum IgA level. PREP: Miralax/Dulcolax PROCEDURE START TIME: 08:08 PROCEDURE END TIME: 08:41 COLONOSCOPY RETRACTION TIME: 10 FINDINGS: Normal-appearing esophagus, normal-appearing GE junction at 36 cm from the incisors, normal stomach and duodenum; rectal polyps x 2, 0.75 cm pedunculated polyp at 45 cm, normal-appearing terminal ileum PROCEDURE DESCRIPTION: After the initiation of anesthesia, and with the assistance of a bite block, I advanced a standard gastroscope through the mouth past the hypopharynx and into the esophagus.? Under the direct vision of the scope, I advanced down the esophagus towards the stomach.? The upper, mid, and lower esophagus were all normal and healthy appearing. The Z-line was regular, and the GE junction measured approximately 36 cm from the incisors. Narrowband imaging was used. There was no evidence of any Varma's esophagus. I advanced down into the stomach and insufflated into the rugae were obliterated. I performed retroflexion. I did not see any signs of hiatal herniation. The gastric cardia, fundus, and antrum were all normal and healthy. I saw no signs of inflammation or ulceration. I advanced down across the pylorus with ease. The duodenal bulb appeared normal. Villi were apparent to the naked eye. I advanced down to the third portion of the duodenum. And all of that looked normal. I did do some nondirected biopsies of the duodenum and duodenal bulb with cold forceps since Bernice has an elevated serum IgA level, and I wanted to rule out celiac disease. There was minimal bleeding from the biopsy sites. I brought the camera back up into the stomach proper and perform some nondirected biopsies of the gastric antrum and body to rule out Helicobacter pylori. I then emptied the stomach, and brought the camera out along the length of the esophagus performing some random biopsies of the esophagus to rule out that as a source of her symptoms. All of these biopsies were performed with cold forceps as well. The camera was then removed, and Bernice was rolled into the left lateral decubitus position. Great care was taken to make sure that she was padded and supported appropriately. I began this portion by performing an external anorectal exam.? Perineum and skin were normal, as was the anal verge.? There was no evidence of external hemorrhoids.? Next, I performed a digital rectal exam.? I did not appreciate any abnormal findings.? Next, I advanced a colonoscope into the rectal vault.? I performed retroflexion.? This appeared normal.? Using insufflation, I then advanced the colonoscope beyond the rectal folds and into the sigmoid colon before advancing towards the cecum.?? The scope was noted to be in the cecum by identification of the ileocecal valve and appendiceal orifice.? I cannulated the terminal ileum for several centimeters. All of this was normal-appearing. I did do some nondirected biopsies of the terminal ileum with cold forceps to rule out terminal ileitis as a source of the symptoms. I then began withdrawing the colonoscope using repeated irrigation as necessary for full evaluation of the colonic mucosa. ?Around 45 cm from the anal verge was a 0.75 cm pedunculated polyp. This was removed with cold snare polypectomy. The specimen was too large to fit through the scope, so this was brought out through the anus. The camera was reintroduced, and advanced back up to the level of the polypectomy. Polypectomy appeared complete and there was minimal bleeding. Once the scope was withdrawn to the level of the rectum, great care was taken to examine portions of the rectal folds.? There were 2 tiny hyperplastic appearing polyps in the rectum. These were each less than 0.25 cm, and each of these was removed with cold forceps without issue. These were sent as a single specimen. Finally, the scope was withdrawn and the patient was brought to the same-day surgery recovery unit as the anesthetic wore off. ?The findings and instructions were shared with the patient prior to discharge.
[2024-05-18 07:00] VITALS: BP 126/93; PULSE 86; RESP 18; TEMP 36.6; O2SAT 97
[2024-05-18 07:31] VITALS: BMI 25.8
[2024-05-18] MEDS: Lactated Ringers 1,000 ML 80 ML IV (07:34)
--- NOTE | 2024-05-18 08:12 | BOWEL_PTH ---
PATIENT: Bernice Archer LOC: [facility] U#:[id number] AGE/SX: 23/F ROOM: RE05/18/[address]: Francis Greenberg MD : 2000 BED: DIS: 05/18/2024 SPEC #: [id number] RECD: 05/18/24 12:58 STATUS: PADMA RE #: [id number] LONI: 05/18/24 08:[address]: Francis Greenberg DEPT: Surgical Specimen RECD BY: Tiffany Low ENTERED: 05/18/24 13:00 SP TYPE: Bowel OTHR DR: Connor Mercado Tissues: 1 - BIOPSY BOWEL 2 - STOMACH BIOPSY 3 - STOMACH BIOPSY 4 - ESOPHAGUS BIOPSY 5 - BIOPSY BOWEL 6 - BIOPSY BOWEL 7 - BIOPSY BOWEL Procedures: GROSS AND MICRO LEVEL 4 Comments: [id number]
[2024-05-18 08:48] VITALS: BP 120/86; PULSE 81; RESP 18; TEMP 36.6; O2SAT 98
--- NOTE | 2024-05-18 09:04 | W.ANESPOSTOP ---
Postoperative Evaluation Date, Time and Location Date Performed: 05/18/24 Time Performed: 09:05 Patient Location: Day Surgery Unit Vital Signs Most Recent Imported Vital Signs: Most Recent Vital Signs Temp Pulse Resp BP Pulse Ox 36.6 C 81 18 120/86 98 05/18/24 08:48 05/18/24 08:48 05/18/24 08:48 05/18/24 08:48 05/18/24 08:48 Pain Score Most Recent Pain Score: Most Recent Pain Score Pain Level 0 05/18/24 08:48 Assessment Mental Status: Awake (Alert & Oriented to Patient Baseline) Airway and Respiratory Function: Patent airway with normal (patient baseline) respiratory exam Cardiovascular Function: Hemodynamically Stable Hydration Status: Adequately Hydrated Nausea & Vomiting: No Nausea or Vomiting Pain: Pt. Denies Any Pain Peripheral Nerve Block: Patient did not receive a nerve block
[2024-05-18 09:18] VITALS: BP 124/87; PULSE 67; RESP 16; TEMP 36.9; O2SAT 96
== END 2024-05-18 09:35 | disposition home or self-care (01) ==
LOC: SUR 06:58
PROVIDERS: PCP Physician Assistant Medical; Visit Provider Surgery
PROC: (CPT 45385; principal; 2024-05-18 08:15)
DX: R10.9 Unspecified abdominal pain (principal); K29.70 Gastritis, unspecified, without bleeding; Z12.11 Encounter for screening for malignant neoplasm of colon; K22.89 Other specified disease of esophagus; D37.4 Neoplasm of uncertain behavior of colon
CPT/HCPCS: 45385; 45380; 43239; 81025; 88305; J2250; J2405; J2704

== ENCOUNTER 2024-08-14 03:35 | Emergency (ER) | payer BC, SELFPAY ==
[2024-08-14 03:38] VITALS: BP 174/129; PULSE 99; RESP 18; TEMP 36.8; O2SAT 98
--- NOTE | 2024-08-14 03:44 | ED.GENADUL_ITS ---
Discharge Plan Disposition Patient Disposition: Home Condition: Good Discharge Details Clinical Impression: Laceration of toe, right Primary Care Provider: Connor Mercado ED Provider: Jarred Dorsey Home Meds and New Rx's Prescriptions: No Action cyclobenzaprine 10 mg tablet 10 mg PO TID PRN acetaminophen [Tylenol Extra Strength] 500 mg Tablet 1,000 mg PO PRN PRN ibuprofen 600 mg Tablet 600 mg PO PRN PRN famotidine [Pepcid] 20 mg tablet 20 mg PO DAILY Qty: 30 0RF lorazepam 0.5 mg tablet 0.5 mg PO TID PRN (Reason: anxiety) Qty: 10 0RF sertraline 25 mg tablet 25 mg PO DAILY Linzess 72 mcg capsule 72 mcg PO DAILY Patient Comments: TAKE ONE CAPSULE BY MOUTH EVERY DAY Discharge Instructions Instructions: Laceration Repair With Glue ED Additional Instructions: Please keep the area clean and dry. Monitor closely for any redness, drainage or discharge. Please keep your toes kike taped together for the next 7 to 10 days. Try to keep your foot dry as often as possible, do not let it soak or get wet as this will inhibit the effectiveness of the glue. The glue will fall off on its own after a week and a half. If you notice any worsening of your symptoms, or any new symptoms such as vomiting, diarrhea, fever, chills, shortness of breath, chest pain, numbness, weakness, or fainting , please return immediately to the emergency department for reevaluation. Please follow up with your primary care provider as soon as possible for reassessment and reevaluation. As always, it was a pleasure participating in your medical care today. Referrals: Connor Mercado PA [Primary Care Provider] - [facility] General Date/Time Provider Initiated Documentation: 08/14/24 03:36 . HPI Narrative: This is a pleasant 23-year-old female who presents today for evaluation of laceration between her 4th and 5th toe on the right foot. Patient got up to go to the bathroom this evening at around 3 AM and when she was walking back she hit a plastic container and caught between her 4th and 5th toe in the webspace, this led to a small cut inside that area. Patient came to the ER for further assessment. She denies numbness or tingling. No other compla ints Related Data Home Medications ?Medication ?Instructions ?Recorded ?Confirmed acetaminophen 500 mg tablet 1,000 mg PO PRN PRN 10/31/19 08/14/24 (Tylenol Extra Strength) ibuprofen 600 mg tablet 600 mg PO PRN PRN 10/31/19 08/14/24 cyclobenzaprine 10 mg tablet 10 mg PO TID PRN 12/02/21 08/14/24 famotidine 20 mg tablet (Pepcid) 20 mg PO DAILY #30 tabs 04/08/24 08/14/24 lorazepam 0.5 mg tablet 0.5 mg PO TID PRN anxiety #10 tabs 04/30/24 08/14/24 linaclotide 72 mcg capsule 72 mcg PO DAILY 08/14/24 08/14/24 (Linzess) sertraline 25 mg tablet 25 mg PO DAILY 08/14/24 08/14/24 Previous Rx's ?Medication ?Instructions ?Recorded famotidine 20 mg tablet (Pepcid) 20 mg PO DAILY #30 tabs 04/08/24 lorazepam 0.5 mg tablet 0.5 mg PO TID PRN anxiety #10 tabs 04/30/24 Allergies Allergy/AdvReac Type Severity Reaction Status Date / Time fluoxetine AdvReac Severe Other (See Verified 05/18/24 07:22 Comment) Iodinated Contrast Media AdvReac Mild doesn't Verified 05/18/24 07:22 feel well General Stated Complaint: Laceration ZEB: 4 Exam Narrative Exam Narrative: 1.Const: Well-nourished, Well-developed, appearing stated age 2.Eyes: PERRL, no conjunctival injection, and symmetrical lids. 3.ENT: Atraumatic external nose and ears. Moist MM. Neck: Symmetric, trachea midline, No thyromegaly. 4.CVS: +S1/S2, Peripheral pulses 2+ and equal in all extremities. Brisk capillary refill in all extremities. 5.RESP: Unlabored respiratory effort. Clear to auscultation bilaterally. No wheezes rales or rhonchi 6.GI: Soft, Nontender/Nondistended, No hepatosplenomegaly. No guarding or rebound. 7.MSK: Normocephalic/Atraumatic, Extremities w/o deformity or ttp No cyanosis or clubbing, Normal movement of all extremities 8.Skin: Small 1 cm laceration that is vertical between the 4th and 5th webspace on the right foot. No active hemorrhage. Good sensation distally in all toes. Good movement of all toes for flexion and extension, no evidence of neurovascular or tendinous compromise. 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 Sensation grossly intact, no focal neurologic deficits. 10.Psych: (AAO) x3. Appropriate mood and affect Course Vital Signs Vital signs: Vital Signs Temperature 36.8 C 08/14/24 03:38 Pulse 99 H 08/14/24 03:38 Respiratory Rate 18 08/14/24 03:38 Blood Pressure 174/129 H 08/14/24 03:38 Pulse Oximetry 98 08/14/24 03:38 Temperature 36.8 C 08/14/24 03:38 Temperature Source Temporal Artery Scan 08/14/24 03:38 Pulse 99 H 08/14/24 03:38 Respiratory Rate 18 08/14/24 03:38 Blood Pressure 174/129 H 08/14/24 03:38 Blood Pressure Position Sitting 08/14/24 03:38 Pulse Oximetry 98 08/14/24 03:38 Oxygen Delivery Method Room Air 08/14/24 03:38 Oxygen Flow Rate 0 08/14/24 03:38 Procedure Laceration Laceration 1: Date of Procedure: 08/14/24 Time of procedure: 03:47 Provider that performed the procedure: Jarred Dorsey Standard Time Out Performed: Yes Patient Consented: Verbally Site: lower extremity Side (If applicable): right Description: linear Depth: simple, single layer Local anesthetic: LET(lidocaine epinephrine tetracaine) Amount of anesthesia used (mL): 2 Pre-repair:: wound explored, irrigated extensively and deep structures intact Skin layer closed with: other (glue) Medical Decision Making This is a pleasant 23-year-old female who presents today for evaluation of laceration between her 4th and 5th toe on the right foot. Patient got up to go to the bathroom this evening at around 3 AM and when she was walking back she hit a plastic container and caught between her 4th and 5th toe in the webspace, this led to a small cut inside that area. Patient came to the ER for further assessment. She denies numbness or tingling. No other complaints. Physical exam demonstrates Small 1 cm laceration that is vertical between the 4th and 5th webspace on the right foot. No active hemorrhage. Good sensation distally in all toes. Good movement of all toes for flexion and extension, no evidence of neurovascular or tendinous compromise. Laceration is notably small, low tensile area. Discussed risks and benefits of suturing versus glue. At this time through shared decision making process patient has elected to utilize glue for the laceration which I do think is medically appropriate. Tetanus is up to date. Dermabond applied, toes kike taped, patient tolerated this notably well. Discussed red flags for which to return. I have extensively reviewed the treatment plan and discharge instructions with the patient. I have addressed all patient concerns at this time. The patient was made aware of what symptoms to monitor for that would warrant a return to the emergency department. Discussed the plan with the patient, they demonstrate verbal understanding and agreement with our assessment and plan at this time. The documentation in this chart was dictated using [employer] dictation software. Please excuse any dictation errors. Quality:SDOH Health Related Social Needs: No Data to Display PFSH All Active Problems (Updated 08/14/24 @ 03:50 by Jarred Dorsey DO) Laceration of toe, right (Acute) Dysmenorrhea (Acute) Flank pain (Acute) Hematuria (Acute) Hidradenitis suppurativa (Acute) Nausea & vomiting (Acute) IgA deficiency (Acute) Medical History (Updated 08/14/24 @ 03:50 by Jarred Dorsey DO) COVID Cough Depression Migraine headache Leukocytosis Contusion of foot, right Duplex kidney ADHD Surgical History (Updated 05/22/24 @ 08:24 by Juliane Herrera) History of esophagogastroduodenoscopy (~05/2024) History of colonoscopy (~05/2024) History of tonsillectomy and adenoidectomy No significant past surgical history Social History (Updated 12/22/23 @ 13:35 by Rosemarie Sapp) Smoking/Tobacco Use Status: Current-Occasional Tobacco Type: e-cigarettes Smokeless tobacco user: other Quit status: has quit before Smoking risk assessment performed?: Yes Alcohol Intake: current Alcohol Intake frequency: a few times a month Drug use: Socially Substance use type: marijuana Household members: family Housing: house 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
[2024-08-14] MEDS: Lidocaine/Epinephri/Tetracaine Topical Gel 3 ML TP (03:49)
--- NOTE | 2024-08-14 04:18 | NUR.NOTE ---
Gross decon with tap water and soap, LET applied, provider closed and dressed wound, J
== END 2024-08-14 04:23 | disposition home or self-care (01) ==
LOC: ER 04:24
PROVIDERS: Emergency Provider Student in an Organized Health Care Education/Training Program; PCP Physician Assistant Medical
DX: S91.311A Laceration without foreign body, right foot, initial encounter (principal); F17.290 Nicotine dependence, other tobacco product, uncomplicated; W26.8XXA Contact with other sharp object(s), not elsewhere classified, initial encounter; Y93.01 Activity, walking, marching and hiking; Y92.018 Other place in single-family (private) house as the place of occurrence of the external cause
CPT/HCPCS: 12001; 99283

== ENCOUNTER 2024-10-07 04:32 | Emergency (ER) | payer BC, SELFPAY ==
[2024-10-07 04:35] VITALS: BP 205/158; PULSE 80; RESP 20; O2SAT 97
--- NOTE | 2024-10-07 04:45 | RT.EKG_ITS ---
APPROVED REPORT Exam: Resting ECG Reason for Exam: abdominal pain Patient Location: E HR:63 bpm ECG Measurements Heart Rate 63 AXIS OR 223 P 38 QRSd 97 QRS 79 QT 403 T 50 QTc 413 Conclusion Sinus rhythm...normal P axis, V-rate 60- 99 Prolonged OR interval...OR >210, V-rate 50- 90 Probable left atrial enlargement...P >50mS, <-0.10mV V1
[2024-10-07 04:47] VITALS: BP 98/41; TEMP 35.5; O2SAT 98
[2024-10-07 04:50] LABS: Bilirubin Negative (Negative); Blood Negative (Negative); Clarity Sl Cloudy (Clear); Glucose Negative (Negative); Ketones Negative (Negative); Leukocyte Esterase Negative (Negative); Nitrite Negative (Negative); Specific Gravity <= 1.005 (1.005-1.025); Urobilinogen 0.2 mg/dL (Up to 0.2); pH 5.5 (5-8)
[2024-10-07 05:05] LABS: Abs Immature Grans 0.03 10^3/uL (0.0-0.06); Absolute Basophil Count 0.03 10^3/uL (0.0-0.2); Absolute Eosinophil Count 0.33 10^3/uL (0.0-0.7); Absolute Monocyte Count 0.91 10^3/uL (0.1-0.8); Absolute Neutrophil Count 7.14 10^3/uL (1.2-6.7); Basophils % 0.3 %; Eosinophils % 2.9 %; HCT 43.4 % (36.0-46.0); HGB 14.4 g/dL (11.2-15.7); Immature Grans % 0.3 %; Lymphocytes % 26.8 %; MCH 28.4 pg (27.0-33.0); MCHC 33.2 % (32.0-36.0); MCV 86 fL (80-95); MPV 10.2 fL (8.0-11.0); Monocytes % 7.9 %; Neutrophils % 61.8 %; Platelet Count 323 10^3/uL (130-400); RBC 5.07 10^6/uL (3.93-5.22); RDW 13.7 % (11.7-14.6); RDW-SD 42.2 fL; WBC 11.55 10^3/uL (4.4-10.8)
[2024-10-07 05:15] LABS: Lipase 48 U/L (<78)
[2024-10-07 05:21] LABS: ALT 21 U/L (14-59); AST 11 U/L (15-37); Albumin 3.9 g/dL (3.4-5.0); Alkaline Phosphatase 79 U/L (46-116); Anion Gap 11.5 mmol/L (3-11); BUN 12 mg/dL (7-18); Bilirubin, Total 0.3 mg/dL (0.2-1.0); CO2 25.5 mmol/L (21.0-32.0); CREATININE 0.6 mg/dL (0.55-1.02); Calcium 8.9 mg/dL (8.5-10.1); Chloride 104 mmol/L (98-107); Estimated GFR 128.46 (mL/min/1.73m2); Glucose 107 mg/dL (74-106); Magnesium 1.8 mg/dL (1.8-2.4); Potassium 3.6 mmol/L (3.5-5.1); Sodium 141 mmol/L (136-145); Total Protein 7.5 g/dL (6.4-8.2); Troponin I < 4 ng/L (<or=51)
[2024-10-07 05:31] LABS: HCG Qual (Serum) Negative
--- NOTE | 2024-10-07 05:31 | W.ED.GENAD ---
Discharge Plan Disposition Patient Disposition: Home Condition: Improving Discharge Details Clinical Impression: Nausea & vomiting, Abdominal pain Primary Care Provider: Connor Mercado ED Provider: Cleve Galindo Home Meds and New Rx's Prescriptions: No Action cyclobenzaprine 10 mg tablet 10 mg PO TID PRN acetaminophen [Tylenol Extra Strength] 500 mg Tablet 1,000 mg PO PRN PRN ibuprofen 600 mg Tablet 600 mg PO PRN PRN famotidine [Pepcid] 20 mg tablet 20 mg PO DAILY Qty: 30 0RF lorazepam 0.5 mg tablet 0.5 mg PO TID PRN (Reason: anxiety) Qty: 10 0RF sertraline 25 mg tablet 25 mg PO DAILY Linzess 72 mcg capsule 72 mcg PO DAILY Patient Comments: TAKE ONE CAPSULE BY MOUTH EVERY DAY Discharge Instructions Instructions: Abdominal Pain, Adult ED, Cannabis hyperemesis syndrome Additional Instructions: You can continue your current medications as previously directed. You should consider that this could be a variant of cyclic vomiting or chronic abdominal pain related to daily marijuana use. I would recommend a trial of marijuana cessation to see if your symptoms significantly improved. Unfortunately, you developed some akathisia (difficulty controlling motor movement and mood instability) after you received the droperidol medication. You should let medical providers know in the future, if they want to give you droperidol. While this is not an allergy, you might consider listing with your allergies in the future to avoid recurrent symptoms. Follow-up with your regular primary care doctor for reevaluation and further management, especially if symptoms or not improving with this care plan. You can always return to the ER for any new concerns or sudden changes in your health which you feel require emergency medical attention. Discharge Data Discharge Physician: Cleve Galindo [facility] General Date/Time Provider Initiated Documentation: 10/07/24 04:48. HPI Narrative: The patient is a 23-year-old female, who presents to the emergency department this evening complaining of mid abdominal and epigastric discomfort which began around 1 AM this morning. The patient reports that she has had multiple episodes like this in the past and is currently taking famotidine, oral Linzess, intermittent ibuprofen, and intermittent acetaminophen for her symptoms. The patient is currently tracking her ovulation because she is trying to get . The patient denies any associated vomiting but has nausea. The patient denies any associated diarrhea or constipation. The patient is reportedly a daily marijuana smoker. The patient has no prior history of cyclic vomiting syndrome. The patient has been utilizing ibuprofen and a heating pad but this has not been helping her symptoms at home. Related Data Home Medications ?Medication ?Instructions ?Recorded ?Confirmed acetaminophen 500 mg tablet 1,000 mg PO PRN PRN 10/31/19 10/07/24 (Tylenol Extra Strength) ibuprofen 600 mg tablet 600 mg PO PRN PRN 10/31/19 10/07/24 cyclobenzaprine 10 mg tablet 10 mg PO TID PRN 12/02/21 10/07/24 famotidine 20 mg tablet (Pepcid) 20 mg PO DAILY #30 tabs 04/08/24 10/07/24 lorazepam 0.5 mg tablet 0.5 mg PO TID PRN anxiety #10 tabs 04/30/24 10/07/24 linaclotide 72 mcg capsule 72 mcg PO DAILY 08/14/24 10/07/24 (Linzess) sertraline 25 mg tablet 25 mg PO DAILY 08/14/24 10/07/24 Previous Rx's ?Medication ?Instructions ?Recorded famotidine 20 mg tablet (Pepcid) 20 mg PO DAILY #30 tabs 04/08/24 lorazepam 0.5 mg tablet 0.5 mg PO TID PRN anxiety #10 tabs 04/30/24 Allergies Allergy/AdvReac Type Severity Reaction Status Date / Time fluoxetine AdvReac Severe Other (See Verified 10/07/24 04:40 Comment) Iodinated Contrast Media AdvReac Mild doesn't Verified 10/07/24 04:40 feel well General Stated Complaint: Abd Prob ZEB: 3 Exam Const General: cooperative, healthy appearing and acute distress mild Resp Effort & Inspection: normal respiratory effort and able to speak in complete sentences Auscultation: clear to auscultation bilaterally Cardio Rate: regular rate Rhythm: regular rhythm Heart Sounds: S1 normal and S2 normal GI Inspection: normal to inspection Palpation: soft Auscultation: normal bowel sounds Skin Other: There are some generalized erythema in the central abdomen where the patient's but holding a warm pack Neuro General: patient alert, patient awake, patient oriented x3, normal light touch, pain and propioception, no focal motor deficits and CN's II-XI intact bilaterally Extrem General: normal to inspection, full ROM, capillary refill normal and no clubbing, cyanosis or edema Course The patient developed some akathisia related to the droperidol, but this improved significantly with IV Ativan here in the emergency room. The patient reports resolution of her abdominal discomfort and her nausea at this time. She is somnolent but arousable and maintaining an oxygen saturation normally without any significant problems. The patient is anxious to go home and her boyfriend is when to take her at this time. She is discharged with instructions to continue her current medications and consider that this could be cyclic vomiting variant related to daily marijuana use. Vital Signs Vital signs: Vital Signs Pulse 80 10/07/24 04:35 Respiratory Rate 20 10/07/24 04:35 Blood Pressure 205/158 H 10/07/24 04:35 Pulse Oximetry 97 10/07/24 04:35 Temperature 35.5 C L 10/07/24 04:47 Pulse 80 10/07/24 04:35 Respiratory Rate 20 10/07/24 04:35 Blood Pressure 98/41 L 10/07/24 04:47 Blood Pressure Position Supine 10/07/24 04:47 Pulse Oximetry 98 10/07/24 04:47 Oxygen Delivery Method Room Air 10/07/24 04:47 Oxygen Flow Rate 0 10/07/24 04:35 Pain Level 1 10/07/24 04:47 Lab/Test Results Lab/Test Results: Laboratory Tests Range/Units 10/07/24 10/07/24 10/07/24 04:40 04:58 05:54 WBC (4.4-10.8) 10^3/uL 11.55 H RBC (3.93-5.22) 10^6/uL 5.07 Hgb (11.2-15.7) g/dL 14.4 Hct (36.0-46.0) % 43.4 MCV (80-95) fL 86 MCH (27.0-33.0) pg 28.4 MCHC (32.0-36.0) % 33.2 RDW (11.7-14.6) % 13.7 Plt Count (130-400) 10^3/uL 323 MPV (8.0-11.0) fL 10.2 Immature Gran % % 0.3 Neutrophils % % 61.8 Lymphocytes % % 26.8 Monocytes % % 7.9 Eosinophils % % 2.9 Basophils % % 0.3 Nucleated RBC % (0.0-0.3) % 0.0 Absolute Neutrophils (1.2-6.7) 10^3/uL 7.14 H Absolute Lymphocytes (1.2-3.4) 10^3/uL 3.10 Absolute Monocytes (0.1-0.8) 10^3/uL 0.91 H Absolute Eosinophils (0.0-0.7) 10^3/uL 0.33 Absolute Basophils (0.0-0.2) 10^3/uL 0.03 Sodium (136-145) mmol/L 141 Potassium (3.5-5.1) mmol/L 3.6 Chloride (98-107) mmol/L 104 Carbon Dioxide (21.0-32.0) mmol/L 25.5 Anion Gap (3-11) mmol/L 11.5 H BUN (7-18) mg/dL 12 Creatinine (0.55-1.02) mg/dL 0.6 Est GFR (CKD-EPI 2020) (mL/min/1.73m2) 128.46 Glucose (74-106) mg/dL 107 H Calcium (8.5-10.1) mg/dL 8.9 Magnesium (1.8-2.4) mg/dL 1.8 Total Bilirubin (0.2-1.0) mg/dL 0.3 AST (15-37) U/L 11 L ALT (14-59) U/L 21 Alkaline Phosphatase (46-116) U/L 79 Troponin I (<or=51) ng/L < 4 Cancelled Total Protein (6.4-8.2) g/dL 7.5 Albumin (3.4-5.0) g/dL 3.9 Lipase (<78) U/L 48 Serum HCG, Qual Negative Urine Color (Yellow) Yellow Urine Clarity (Clear) Sl Cloudy Urine pH (5-8) 5.5 Ur Specific [place] (1.005-1.025) <= 1.005 Urine Protein (Neg-Trace) mg/dL Negative Urine Ketones (Negative) mg/dL Negative Urine Blood (Negative) Negative Urine Nitrite (Negative) Negative Urine Bilirubin (Negative) Negative Urine Urobilinogen (Up to 0.2) mg/dL 0.2 Ur Leukocyte Esterase (Negative) Negative Urine Glucose (Negative) mg/dL Negative Range/Units 10/07/24 07:54 WBC (4.4-10.8) 10^3/uL RBC (3.93-5.22) 10^6/uL Hgb (11.2-15.7) g/dL Hct (36.0-46.0) % MCV (80-95) fL MCH (27.0-33.0) pg MCHC (32.0-36.0) % RDW (11.7-14.6) % Plt Count (130-400) 10^3/uL MPV (8.0-11.0) fL Immature Gran % % Neutrophils % % Lymphocytes % % Monocytes % % Eosinophils % % Basophils % % Nucleated RBC % (0.0-0.3) % Absolute Neutrophils (1.2-6.7) 10^3/uL Absolute Lymphocytes (1.2-3.4) 10^3/uL Absolute Monocytes (0.1-0.8) 10^3/uL Absolute Eosinophils (0.0-0.7) 10^3/uL Absolute Basophils (0.0-0.2) 10^3/uL Sodium (136-145) mmol/L Potassium (3.5-5.1) mmol/L Chloride (98-107) mmol/L Carbon Dioxide (21.0-32.0) mmol/L Anion Gap (3-11) mmol/L BUN (7-18) mg/dL Creatinine (0.55-1.02) mg/dL Est GFR (CKD-EPI 2020) (mL/min/1.73m2) Glucose (74-106) mg/dL Calcium (8.5-10.1) mg/dL Magnesium (1.8-2.4) mg/dL Total Bilirubin (0.2-1.0) mg/dL AST (15-37) U/L ALT (14-59) U/L Alkaline Phosphatase (46-116) U/L Troponin I (<or=51) ng/L Cancelled Total Protein (6.4-8.2) g/dL Albumin (3.4-5.0) g/dL Lipase (<78) U/L Serum HCG, Qual Urine Color (Yellow) Urine Clarity (Clear) Urine pH (5-8) Ur Specific [place] (1.005-1.025) Urine Protein (Neg-Trace) mg/dL Urine Ketones (Negative) mg/dL Urine Blood (Negative) Urine Nitrite (Negative) Urine Bilirubin (Negative) Urine Urobilinogen (Up to 0.2) mg/dL Ur Leukocyte Esterase (Negative) Urine Glucose (Negative) mg/dL POC- Test(urine) Negative Medical Decision Making The patient was seen and examined. She has been seen several times in the emergency room for similar symptoms recently and has been started on a variety of medications including cyclobenzaprine, famotidine, and lorazepam. The patient is currently taking Linzess, presumably through her primary care doctor's office. The patient might be experiencing some gastritis, or potentially some cholelithiasis or pancreatitis, however these labs have been typically normal in the past. The patient has had several CT scans this year of her abdomen which have all been normal. The patient is a daily marijuana user and could have some variant of cyclic vomiting syndrome related to her frequent marijuana use. I will trial some droperidol as well as some IV acetaminophen to see if this is helpful for the patient's symptoms. The patient is holding a warm pack which clearly brings comfort, and this might also be significant for the diagnosis. I am doubtful the patient has any myocardial ischemia as a contribution, but did order an EKG for the purposes of utilizing droperidol and a single troponin to ensure that there is no obvious myocardial ischemia contributing. I do not anticipate that the patient will require admission to the hospital for ongoing management. The emergency room will focus on excluding any significant endorgan pathology and providing improvement in the patient's symptoms. PFSH All Active Problems (Updated 10/07/24 @ 07:20 by Cleve Galindo MD) Abdominal pain (Acute) Dysmenorrhea (Acute) Flank pain (Acute) Hematuria (Acute) Hidradenitis suppurativa (Acute) Nausea & vomiting (Acute) IgA deficiency (Acute) Medical History (Updated 10/07/24 @ 07:20 by Cleve Galindo MD) COVID Cough Depression Migraine headache Leukocytosis Contusion of foot, right Duplex kidney ADHD Surgical History (Updated 05/22/24 @ 08:24 by Juliane Herrera) History of esophagogastroduodenoscopy (~05/2024) History of colonoscopy (~05/2024) History of tonsillectomy and adenoidectomy No significant past surgical history Social History (Updated 12/22/23 @ 13:35 by Rosemarie Sapp) Smoking/Tobacco Use Status: Current-Occasional Tobacco Type: e-cigarettes Smokeless tobacco user: other Quit status: has quit before Smoking risk assessment performed?: Yes Alcohol Intake: current Alcohol Intake frequency: a few times a month Drug use: Socially Substance use type: marijuana Household members: family Housing: house 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
[2024-10-07 05:35] VITALS: RESP 46
[2024-10-07 05:40] VITALS: PULSE 66; PULSE 69; RESP 14; O2SAT 98
[2024-10-07 05:46] VITALS: BP 135/84; PULSE 77; PULSE 81; RESP 19; O2SAT 97
[2024-10-07] MEDS: ACETAMINOPHEN 1,000 MG/100 ML BAG 400 MG (05:46)
[2024-10-07] MEDS: Pantoprazole 40 MG VIAL IVP (05:48)
[2024-10-07] MEDS: Droperidol 5 MG/2 ML VIAL 2.5 MG IVP (05:48)
[2024-10-07] MEDS: Normal Saline 1,000 ML 1000 ML IV (05:48)
[2024-10-07] MEDS: LORazepam 20 MG/10 ML VIAL IVP (06:22)
[2024-10-07 07:26] VITALS: BP 147/95; PULSE 87; RESP 18; O2SAT 97
== END 2024-10-07 07:33 | disposition home or self-care (01) ==
PROVIDERS: Emergency Provider Emergency Medicine Emergency Medical Services; PCP Physician Assistant Medical
DX: R10.11 Right upper quadrant pain (principal); R11.2 Nausea with vomiting, unspecified
CPT/HCPCS: 99283; 99284; 96374; 96375; 96372; 81025; 36415; 80053; 83690; 93005; 81003; 83735; 84484; 84703; 85025; 93010; J0131; J1790; J2060; J2470

== ENCOUNTER 2024-10-16 10:26 | Outpatient (CLI) | payer BC, SELFPAY ==
--- NOTE | 2024-10-16 | DI.RAD_ITS ---
Exam(s) XR CHEST 2V PA LATERAL EXAM: XR CHEST 2V PA LATERAL CLINICAL HISTORY: COUGH, R05.9. TECHNIQUE: 2D digital imaging was performed. COMPARISON: CR,XR XR CHEST 2V PA LATERAL from 11/13/2023 FINDINGS: 2 views: Heart size is normal. The mediastinum is not widened. Left lung is clear. Subtle suggestion of possible small area of infiltrate in the right upper lobe although this may just be related to overlapping rib shadows and vascular markings. This measures approximately 1 cm. There are no other focal lung findings and no pleural effusions. No pneumothorax. No fractures. IMPRESSION: Possible very subtle patchy infiltrate in the right upper lobe as described above. Left lung is clear. There are no pleural effusions. DATA REPOSITORY: RADIATION DOSE DELIVERED:
== END 2024-10-16 10:46 ==
LOC: DI 10:26
PROVIDERS: PCP Physician Assistant Medical; Visit Provider Physician Assistant Medical
DX: R05.9 Cough, unspecified (principal); R91.8 Other nonspecific abnormal finding of lung field
CPT/HCPCS: 71046